=== PATIENT | female | born 1955 | race Caucasian/White ===

== ENCOUNTER 2016-07-13 20:51 | Emergency (ER) | payer OTHER ==
[~2016-07-13 20:51] MED LIST: AMOX1TAB61 PO; PROM12.56 PO
[2016-07-13 21:03] VITALS: BP 115/76
[2016-07-13] MEDS ORDERED: DEXAMETHASONE SOD PHOS 20 MG/5 ML VIAL. IM ONE (21:30)
[2016-07-13] MEDS ORDERED: PRED50TA PO (21:47)
[2016-07-13] MEDS ORDERED: HYDR25TA PO (21:47)
--- NOTE | 2016-07-13 21:47 | PHYS DOC ---
Past Medical History Past Medical History: Pneumonia Additional Past Medical Histor: CIRRHOSIS, CHRONIC BACK/ABD. PAIN Past Surgical History: Appendectomy, Tonsillectomy, Other Additional Past Surgical Histo: low back sx, uterian tumors Additional Information: 1 PPD Alcohol Use: None Drug Use: None Adult General Chief Complaint Chief Complaint: ITCHING HPI HPI Patient is a 61 year old female who presents with itching that began 3 days ago after switching laundry detergent. Patient states she has tried taking Benadryl with no relief. She states her PCP sent her to the ED to get some steroid injection. Review of Systems Review of Systems Constitutional: Denies fever or chills [] : Denies dysuria or hematuria [] Musculoskeletal: Denies back pain or joint pain [] Integument: rash Neurologic: Denies headache, focal weakness or sensory changes [] Endocrine: Denies polyuria or polydipsia [] Current Medications Current Medications Current Medications Medications (Trade) Dose Ordered Sig/Amanda Start Time Stop Time Status Last Admin Dose Admin Dexamethasone Sodium Phosphate (Decadron) 10 mg 1X ONCE 07/13/16 21:30 07/13/16 21:31 DC 07/13/16 21:30 10 MG Allergies Allergies Allergies Uncoded Allergies Type Severity Reaction Last Updated Verified nausea medication unknown name Allergy Unknown 04/21/16 Physical Exam Physical Exam Constitutional: Well developed, well nourished, no acute distress, non-toxic appearance. [] Skin: Patient is actively itching, she has small amount of erythema noted on her chin. Back: No tenderness, no CVA tenderness. [] Extremities: No tenderness, no cyanosis, no clubbing, ROM intact, no edema. [] Neurologic: Alert and oriented X 3, normal motor function, normal sensory function, no focal deficits noted. [] Psychologic: Affect normal, judgement normal, mood normal. [] Current Patient Data Vital Signs Vital Signs Date Time Temp Pulse Resp B/P Pulse Ox O2 Delivery O2 Flow Rate FiO2 07/13/16 21:03 98.3 84 20 100 Room Air 98.3 EKG EKG [] Radiology/Procedures Radiology/Procedures [] Course & Med Decision Making Course & Med Decision Making Pertinent Labs and Imaging studies reviewed. (See chart for details) Patient is in the ED for contact dermatitis due to switching soaps. She has tried Benadryl with no relief. We did give her Decadron in the ED discharged with prednisone for 4 days and Atarax. Instructed her to rewash all the clothes with the old detergent and stop using the new soap. Follow-up with her own PCP in one week. Srikanth Disclaimer [place] Disclaimer This electronic medical record was generated, in whole or in part, using a voice recognition dictation system. Departure Departure Impression: Primary Impression: Contact dermatitis Disposition: HOME, SELF-CARE Condition: STABLE Referrals: GILBERTO TRIPATHI MD (PCP) Follow-up with your own doctor in one week Patient Instructions: Contact Dermatitis Additional Instructions: You were seen for contact dermatitis due to new soap. Stop using the new soap and use the old soap. Take the prescribed medicines as ordered. Follow-up with your doctor in one week. Scripts Hydroxyzine Hcl 25 Mg Tablet1 Tab PO Q4-6HRS PRN RASH #30 TAB Prov:MUTMARCELINO PEREZ CAREER COUNSELOR 07/13/16 Prednisone 50 Mg Tablet1 Tab PO DAILY #4 TAB Prov:MARCELINO SPANGLER APRN 07/13/16 Problem Qualifiers Primary Impression: Contact dermatitis Contact dermatitis type: irritant Contact dermatitis trigger: detergents Qualified Code: L24.0 - Irritant contact dermatitis due to detergents MARCELINO SPANGLER APRN Jul 13, 2016 21:47
== END 2016-07-13 21:57 | disposition home or self-care (01) ==
LOC: ER 20:51
DX: L25.9 Unspecified contact dermatitis, unspecified cause (principal)
CPT/HCPCS: 96372; 99283; J1100

== ENCOUNTER 2016-08-06 13:15 | Emergency (ER) | payer OTHER ==
[~2016-08-06] VITALS: Ht 160 cm; Wt 77.1 kg
[~2016-08-06 13:15] MED LIST changes: +DOXY100T PO; +HYDR25TA PO; +PRED50TA PO
[2016-08-06 14:16] VITALS: BP 137/88
[2016-08-06] MEDS ORDERED: PROM25TA10 PO (14:26)
[2016-08-06] MEDS ORDERED: HYDR-971 PO (14:26)
[2016-08-06] MEDS ORDERED: CLIN300C86 PO (14:26)
--- NOTE | 2016-08-06 14:27 | PHYS DOC ---
Past Medical History Past Medical History: Hepatitis, Pneumonia Additional Past Medical Histor: CIRRHOSIS, CHRONIC BACK/ABD. PAIN, hep c Past Surgical History: Appendectomy, Hysterectomy, Tonsillectomy, Other Additional Past Surgical Histo: low back sx Alcohol Use: None Drug Use: None Adult General Chief Complaint Chief Complaint: DENTAL PROBLEM HPI HPI 61-year-old female presents with pain and swelling in her right lower jaw. She states it started in the last 2 days. She feels like it's a infection around her teeth. She denies any trismus. She states she's been able to eat and drink without difficulty. There is some pain with chewing. She denies fever chills or sweats. [] Review of Systems Review of Systems Constitutional: Denies fever or chills [] Eyes: Denies change in visual acuity, redness, or eye pain [] HENT: Denies nasal congestion or sore throat [] Respiratory: Denies cough or shortness of breath [] Cardiovascular: No additional information not addressed in HPI [] GI: Denies abdominal pain, nausea, vomiting, bloody stools or diarrhea [] : Denies dysuria or hematuria [] Musculoskeletal: Denies back pain or joint pain [] Integument: Denies rash or skin lesions [] Neurologic: Denies headache, focal weakness or sensory changes [] Endocrine: Denies polyuria or polydipsia [] Allergies Allergies Allergies Coded Allergies Type Severity Reaction Last Updated Verified No Known Drug Allergies 08/06/16 No Physical Exam Physical Exam Constitutional: Well developed, well nourished, no acute distress, non-toxic appearance. [] HENT: Normocephalic, atraumatic, bilateral external ears normal, oropharynx moist, no oral exudates, nose normal, right lower jaw swelling there is gingival swelling and erythema around her right lower first molar no abscess obvious. [] Eyes: PERRLA, EOMI, conjunctiva normal, no discharge. [] Neck: Normal range of motion, no tenderness, supple, no stridor. [] Cardiovascular:Heart rate regular rhythm, no murmur [] Lungs & Thorax: Bilateral breath sounds clear to auscultation [] Abdomen: Bowel sounds normal, soft, no tenderness, no masses, no pulsatile masses. [] Skin: Warm, dry, no erythema, no rash. [] Back: No tenderness, no CVA tenderness. [] Extremities: No tenderness, no cyanosis, no clubbing, ROM intact, no edema. [] Neurologic: Alert and oriented X 3, normal motor function, normal sensory function, no focal deficits noted. [] Psychologic: Affect normal, judgement normal, mood normal. [] Current Patient Data Vital Signs Vital Signs Date Time Temp Pulse Resp B/P Pulse Ox O2 Delivery O2 Flow Rate FiO2 08/06/16 14:16 98.1 78 15 99 Room Air 98.1 EKG EKG [] Radiology/Procedures Radiology/Procedures [] Course & Med Decision Making Course & Med Decision Making Pertinent Labs and Imaging studies reviewed. (See chart for details) [] Dragon Disclaimer Dragon Disclaimer This electronic medical record was generated, in whole or in part, using a voice recognition dictation system. Departure Departure Impression: Primary Impression: Pain, dental Disposition: 01 HOME, SELF-CARE Condition: STABLE Referrals: GILBERTO TRIPATHI MD (PCP) Patient Instructions: Dental Abscess Additional Instructions: Thank you for allowing us to participate in your care today. Followup with your primary care physician in 3 days if your symptoms do not improve. Return to the emergency department you have any new or concerning findings. This should be evaluated by the primary care physician and any necessary consulting services for continued management within a few days after discharge. Return to emergency room if you have any new or concerning symptoms including but not limited to fever, chills, nausea, vomiting, intractable pain, any new rashes, chest pain, shortness of air, uncontrolled bleeding, difficulty breathing, and/or vision loss. You may have been prescribed medication that can change in your level of thinking and ability to operate machinery. These medications include hydrocodone and Ativan. Also, Benadryl has been known to do this as well. Be sure to check with your pharmacist and ask if the medications you've prescribed can affect your level of consciousness. I recommend not operating heavy machinery or driving while on medication such as these. Scripts Promethazine Hcl 25 Mg Tablet1 Tab PO PRN Q6HRS NAUSEA #20 TAB Prov:CRISTIAN TORRES DO 08/06/16 Hydrocodone/Apap 5-325 ([place] 5-325 Tablet)1 Each Tablet1 Tab PO PRN Q6HRS PRN PAIN #20 TAB Prov:CRISTIAN TORRES DO 08/06/16 Clindamycin Hcl 300 Mg Capsule1 Cap PO TID Infection #30 CAP Prov:CRISTIAN TORRES DO 08/06/16 CRISTIAN TORRES DO Aug 06, 2016 14:27
== END 2016-08-06 14:40 | disposition home or self-care (01) ==
LOC: ER 13:15
DX: K08.89 Other specified disorders of teeth and supporting structures (principal); G89.29 Other chronic pain; Z86.19 Personal history of other infectious and parasitic diseases; Z87.01 Personal history of pneumonia (recurrent); Z90.710 Acquired absence of both cervix and uterus; Z90.89 Acquired absence of other organs; Z90.49 Acquired absence of other specified parts of digestive tract
CPT/HCPCS: 99283

== ENCOUNTER → 2016-09-29 | Outpatient (CLI) | payer OTHER ==
[~2016-09-29] MED LIST changes: +AMOX875T PO; +CLIN300C86 PO; +HYDR-971 PO; +PROC10TA57 PO; +PROM25TA10 PO
[2016-10-03 10:51] LABS: BARBITURATES NEG (NEG); BENZODIAZEPINES POS (NEG); CANNABINOIDS NEG (NEG); COCAINE NEG (NEG); ETHANOL, URINE NEG (NEG); METHADONE NEG (NEG); OPIATES POS (NEG); PHENCYCLIDINE NEG (NEG)
[2016-10-04 00:09] LABS: HEP B SURFACE ABDY Non Reactive (.)
== END | disposition home or self-care (01) ==
LOC: LAB 11:10
PROVIDERS: ATTEND Internal Medicine Gastroenterology
DX: B19.20 Unspecified viral hepatitis C without hepatic coma (principal)
CPT/HCPCS: 36415; 82105; 82172; 82247; 82977; 83883; 84460; 86706; 87340; 87341; 93010; G0481

== ENCOUNTER 2016-10-02 15:39 | Emergency (ER) | payer OTHER ==
[~2016-10-02] VITALS: Ht 165.1 cm; Wt 72.6 kg
[~2016-10-02 15:39] MED LIST changes: -AMOX875T PO; -PROC10TA57 PO
[2016-10-02 16:48] VITALS: BP 122/64
[2016-10-02] MEDS ORDERED: PROC10TA57 PO (16:48)
[2016-10-02] MEDS ORDERED: AMOX875T PO (16:48)
[2016-10-02] MEDS ORDERED: HYDR-971 PO (16:48)
--- NOTE | 2016-10-02 16:48 | PHYS DOC ---
Past Medical History Past Medical History: Hepatitis, Pneumonia Additional Past Medical Histor: CIRRHOSIS, CHRONIC BACK/ABD. PAIN, hep c Past Surgical History: Appendectomy, Hysterectomy, Tonsillectomy, Other Additional Past Surgical Histo: low back sx Alcohol Use: None Drug Use: None Adult General Chief Complaint Chief Complaint: DENTAL PROBLEM HPI HPI Patient is a 61 year old female with history of hepatitis who presents today with right lower gum dental pain that began 2 days ago. Patient states she would like promethazine and amoxicillin as well as pain medicine. Patient denies any fever. She states she has a dentist but will not longer see the dentist because "last time he butchered my mouth". She states last time the dentist gave her numbing medicines for dental work it took 24 hours with before the numbness went away. Review of Systems Review of Systems Constitutional: Denies fever or chills [] Eyes: Denies change in visual acuity, redness, or eye pain [] HENT: Dental pain Musculoskeletal: Denies back pain or joint pain [] Integument: Denies rash or skin lesions [] Neurologic: Denies headache, focal weakness or sensory changes [] Endocrine: Denies polyuria or polydipsia [] Allergies Allergies Allergies Coded Allergies Type Severity Reaction Last Updated Verified No Known Drug Allergies 08/06/16 No Physical Exam Physical Exam Constitutional: Well developed, well nourished, no acute distress, non-toxic appearance. [] HENT: Normocephalic, atraumatic, bilateral external ears normal, oropharynx moist, no oral exudates, nose normal. [] Right lower exterior gum with swelling consistent of dental abscess, there is no fluctuance to the area. Most of her teeth are decayed. Skin: Warm, dry, no erythema, no rash. [] Back: No tenderness, no CVA tenderness. [] Extremities: No tenderness, no cyanosis, no clubbing, ROM intact, no edema. [] Neurologic: Alert and oriented X 3, normal motor function, normal sensory function, no focal deficits noted. [] Psychologic: Affect normal, judgement normal, mood normal. [] EKG EKG [] Radiology/Procedures Radiology/Procedures [] Course & Med Decision Making Course & Med Decision Making Pertinent Labs and Imaging studies reviewed. (See chart for details) Patient is in the ED with a dental abscess. Discharged with amoxicillin, Compazine, and norco. She was insisting on having promethazine. Informed her I' ll prefer she takes Compazine for her nausea. Recommended following up with another dentist as soon as possible. Srikanth Disclaimer Srikanth Disclaimer This electronic medical record was generated, in whole or in part, using a voice recognition dictation system. Departure Departure Impression: Primary Impression: Dentalgia Additional Impression: Dental abscess Disposition: HOME, SELF-CARE Condition: STABLE Referrals: GILBERTO TRIPATHI MD (PCP) Please follow-up with your dentist as soon as possible Patient Instructions: Dental Abscess Additional Instructions: Please complete the prescribed antibiotics. Follow-up with your dentist as soon as possible. Scripts Hydrocodone/Apap 5-325 ([place] 5-325 Tablet)1 Each Tablet1-2 Tab PO Q4-6HRS #12 TAB MUST FILL AMOXICILLIN PRIOR TO NORCO. DO NOT DISPENSE IF PATIENT HAS FILLED ANY NARCOTICS IN THE LAST 2 WEEKS Prov:MARCELINO SPANGLER APRN 10/02/16 Prochlorperazine Maleate (Compazine)10 Mg [id number] Mg PO Q8HRS PRN NAUSEA #20 TAB Prov:MARCELINO SPANGLER APRN 10/02/16 Amoxicillin 875 Mg Tablet1 Tab PO BID #20 TAB Prov:MARCELINO SPANGLER APRN 10/02/16 Problem Qualifiers MARCELINO SPANGLER APRN Oct 02, 2016 16:48
== END 2016-10-02 16:55 | disposition home or self-care (01) ==
LOC: ER 15:39
DX: K04.7 Periapical abscess without sinus (principal); K02.9 Dental caries, unspecified; G89.29 Other chronic pain; Z87.01 Personal history of pneumonia (recurrent); Z86.19 Personal history of other infectious and parasitic diseases
CPT/HCPCS: 99283

== ENCOUNTER 2016-12-30 05:09 | Emergency (ER) | payer OTHER ==
[~2016-12-30] VITALS: Ht 165.1 cm; Wt 72.6 kg
[~2016-12-30 05:09] MED LIST changes: +AMOX875T PO; +CLIN300C8 PO; -CLIN300C86 PO; +PROC10TA57 PO
[2016-12-30] MEDS ORDERED: AMOX875T PO (05:22)
--- NOTE | 2016-12-30 05:22 | PHYS DOC ---
Past Medical History Past Medical History: Hepatitis, Pneumonia Additional Past Medical Histor: CIRRHOSIS, CHRONIC BACK/ABD. PAIN, hep c Past Surgical History: Appendectomy, Hysterectomy, Tonsillectomy, Other Additional Past Surgical Histo: low back sx Alcohol Use: None Drug Use: None Adult General Chief Complaint Chief Complaint: Congestion HPI HPI Patient is a 61 year old female presenting to the emergency department for evaluation of a sharp pain sinus congestion and dental pain. She is here with her sister who called the ambulance for right leg numbness and she said since she is here for her sister she was will get seen for these complaints has been going on for the past 5-6 days. No fevers chills nausea vomiting productive cough facial swelling. Review of Systems Review of Systems Constitutional: Denies fever or chills [] HENT: + nasal congestion, sore throat [] Respiratory: Denies cough or shortness of breath [] GI: Denies abdominal pain, nausea, vomiting, bloody stools or diarrhea [] Integument: Denies rash or skin lesions [] Neurologic: Denies headache, focal weakness or sensory changes [] Allergies Allergies Allergies Coded Allergies Type Severity Reaction Last Updated Verified No Known Drug Allergies 08/06/16 No Physical Exam Physical Exam Constitutional: Well developed, well nourished, no acute distress, non-toxic appearance. [] HENT: Normocephalic, atraumatic, bilateral external ears normal, oropharynx moist, no oral exudates, nasal congestion noted. BL maxillary facial ttp. Poor dentition throughout with no obvious periapical abscess. She has multiple teeth 30 pulled and her right posterior molar appears quite decayed in addition to her left posterior molar well. Lungs & Thorax: Bilateral breath sounds clear to auscultation [] Skin: Warm, dry, no erythema, no rash. [] EKG EKG [] Radiology/Procedures Radiology/Procedures [] Course & Med Decision Making Course & Med Decision Making Patient with complaints of dental pain and sinus pain. She is insistent on getting antibiotics so we'll treat with amoxicillin which should cover both. Patient also told that ibuprofen Benadryl and Nasonex would help her symptoms more than the antibiotics would. Dragon Disclaimer Dragon Disclaimer This electronic medical record was generated, in whole or in part, using a voice recognition dictation system. Departure Departure Impression: Primary Impression: Acute sinusitis Additional Impression: Pain, dental Disposition: HOME, SELF-CARE Condition: GOOD Referrals: GILBERTO TRIPATHI MD (PCP) Patient Instructions: Dental Pain Additional Instructions: TAKE 400MG OF IBUPROFEN EVERY 6 HOURS. USE OTC BENADRYL AND NASONEX FOR YOUR SYMPTOMS WELL. FOLLOW WITH YOUR PCP TO ENSURE IMPROVEMENT. THANK YOU! Scripts Amoxicillin (AMOXICILLIN) 875 Mg Tablet 1 TAB PO BID, #14 TAB Prov: AUDIE DICKERSON DO 12/30/16 Problem Qualifiers Primary Impression: Acute sinusitis Sinusitis location: maxillary Recurrence: not specified as recurrent Qualified Codes: J01.00 - Acute maxillary sinusitis, unspecified AUDIE DICKERSON DO Dec 30, 2016 05:22
[2016-12-30 05:45] VITALS: BP 114/77
== END 2016-12-30 05:50 | disposition home or self-care (01) ==
LOC: ER 05:09
DX: J01.00 Acute maxillary sinusitis, unspecified (principal); K08.89 Other specified disorders of teeth and supporting structures; G89.29 Other chronic pain; Z87.01 Personal history of pneumonia (recurrent); Z86.19 Personal history of other infectious and parasitic diseases; Z90.710 Acquired absence of both cervix and uterus; Z90.49 Acquired absence of other specified parts of digestive tract
CPT/HCPCS: 99283

== ENCOUNTER 2017-02-15 20:33 | Emergency (ER) | payer OTHER ==
[~2017-02-15] VITALS: Ht 165.1 cm; Wt 72.6 kg
[2017-02-15 20:50] LABS: BILIRUBIN,URINE NEGATIVE (NEG); GLUCOSE,URINE NEGATIVE (NEG); NITRITE,URINE NEGATIVE (NEG); PROTEIN,URINE NEGATIVE (NEG-TRACE)
[2017-02-15 20:56] LABS: BACTERIA,URINE FEW /HPF (0-FEW); RBC,URINE OCC /HPF (0-2); SQUAMOUS EPITHELIAL CELL,UR MANY /LPF
[2017-02-15 21:15] VITALS: BP 119/70
[2017-02-15] MEDS ORDERED: HYDR-971 PO (21:16)
[2017-02-15] MEDS ORDERED: AMOX1TAB61 PO (21:16)
--- NOTE | 2017-02-15 21:16 | PHYS DOC ---
Past Medical History Past Medical History: Hepatitis, Pneumonia Additional Past Medical Histor: CIRRHOSIS, CHRONIC BACK/ABD. PAIN, hep c Past Surgical History: Appendectomy, Hysterectomy, Tonsillectomy, Other Additional Past Surgical Histo: low back sx Alcohol Use: None Drug Use: None Adult General Chief Complaint Chief Complaint: FLANK PAIN HPI HPI Patient is a 62 year old female who presents with dysuria & dental pain. She has 3 day history of suprapubic pain with dysuria. She told triage desk she had flank pain but denies to me. She denies fevers/chills, nausea, vomiting, diarrhea, hematuria, vaginal bleeding/discharge. She denies history of kidney infection or kidney stone. Also has right lower dental pain. Review of Systems Review of Systems Constitutional: Denies fever or chills HENT: Reports dental pain Respiratory: Denies cough or shortness of breath Cardiovascular: Denies chest pain or edema GI: Denies nausea, vomiting, or diarrhea : Reports dysuria Musculoskeletal: Denies back pain Integument: Denies rash Neurologic: Denies headache Allergies Allergies Allergies Coded Allergies Type Severity Reaction Last Updated Verified No Known Drug Allergies 08/06/16 No Physical Exam Physical Exam Constitutional: Well developed, well nourished, no acute distress, non-toxic appearance. HENT: Normocephalic, atraumatic, bilateral external ears normal, oropharynx moist, nose normal. right mandibular premolars with severe caries, erosion, & gingival erythema. no abscess, no trismus or jaw swelling. Eyes: conjunctiva normal, no discharge. Cardiovascular: RRR, no murmurs, no edema. Lungs & Thorax: LCTAB, no wheezing, no respiratory distress. Abdomen: soft, nontender, nondistended. no rebound/guarding, no masses/ pulsatile masses. Skin: Warm, dry, no erythema, no rash. Back: No CVA tenderness. Extremities: No tenderness, no edema. Neurologic: Alert and oriented X 3 Current Patient Data Vital Signs Vital Signs Date Time Temp Pulse Resp B/P (MAP) Pulse Ox O2 Delivery O2 Flow Rate FiO2 02/15/17 21:15 70 16 119/70 (86) 97 Room Air 02/15/17 20:45 98.0 98.0 Lab Values Laboratory Tests Test 02/15/17 20:42 Urine Collection Type Void Urine Color Yellow Urine Clarity Clear Urine pH 6.0 Urine Specific [place] 1.025 Urine Protein Negative mg/dL (NEG-TRACE) Urine Glucose (UA) Negative mg/dL (NEG) Urine Ketones (Stick) Negative mg/dL (NEG) Urine Blood Negative (NEG) Urine Nitrite Negative (NEG) Urine Bilirubin Negative (NEG) Urine Urobilinogen Dipstick 1.0 mg/dL (0.2 mg/dL) Urine Leukocyte Esterase Small (NEG) Urine RBC Occ /HPF (0-2) Urine WBC 5-10 /HPF (0-4) Urine Squamous Epithelial Cells Many /LPF Urine Bacteria Few /HPF (0-FEW) Urine Mucus Marked /LPF EKG EKG [] Radiology/Procedures Radiology/Procedures [] Course & Med Decision Making Course & Med Decision Making Pertinent Labs and Imaging studies reviewed. (See chart for details) Patient presents with dysuria & dental pain. Contaminated UA, possible UTI. Will give augmentin to cover for dental infection & UTI, norco for pain. NO drinking alcohol or driving while taking norco. Follow up with PCP & dentist in 2-3 days. Come back for high fever, severe pain, uncontrolled vomiting, difficulty breathing or swallowing, any otherwise worsening condition. Discharged home in stable condition. [] Dragon Disclaimer Dragon Disclaimer This electronic medical record was generated, in whole or in part, using a voice recognition dictation system. Departure Departure Impression: Primary Impression: Urinary tract infection Additional Impression: Pain, dental Disposition: 01 HOME, SELF-CARE Condition: STABLE Referrals: GILBERTO TRIPATHI MD (PCP) Patient Instructions: Dental Pain, [id number], Urinary Tract Infection, Easy- to-Read Additional Instructions: You were seen in the emergency department today for urinary tract infection & dental pain. please take the prescribed antibiotic. Use ibuprofen for pain & norco for severe breakthrough pain. No drinking alcohol or driving while taking this medication. Follow up with primary care & your dentist in 2-3 days. Come back for high fever, severe pain, uncontrolled vomiting, any otherwise worsening condition. Scripts Hydrocodone/Apap 5-325 (NORCO 5-325 TABLET) 1 Each Tablet 1 TAB PO PRN Q6HRS Y for PAIN, #10 TAB 0 Refills Prov: KYE ELLISON MD 02/15/17 Amoxicillin/Potassium Clav (AUGMENTIN 875-125 TABLET) 1 Each Tablet 1 TAB PO BID, #14 TAB Prov: KYE ELLISON MD 02/15/17 Problem Qualifiers Primary Impression: Urinary tract infection Urinary tract infection type: site unspecified Hematuria presence: without hematuria Qualified Codes: N39.0 - Urinary tract infection, site not specified KYE ELLISON MD Feb 15, 2017 21:16
== END 2017-02-15 21:20 | disposition home or self-care (01) ==
LOC: ER 20:33
DX: N39.0 Urinary tract infection, site not specified (principal); K08.89 Other specified disorders of teeth and supporting structures
CPT/HCPCS: 81001; 87086; 99284

== ENCOUNTER 2017-02-24 19:35 | Emergency (ER) | payer OTHER ==
[~2017-02-24] VITALS: Ht 165.1 cm; Wt 72.6 kg
[2017-02-24 19:51] VITALS: BP 139/77
--- NOTE | 2017-02-24 20:26 | PHYS DOC ---
Past Medical History Past Medical History: Hepatitis, Pneumonia Additional Past Medical Histor: CIRRHOSIS, CHRONIC BACK/ABD. PAIN, hep c Past Surgical History: Appendectomy, Hysterectomy, Tonsillectomy, Other Additional Past Surgical Histo: low back sx Alcohol Use: None Drug Use: None Adult General Chief Complaint Chief Complaint: FLANK PAIN HPI HPI Patient is a 62 year old female who presents ambulatory to the ED. When I went to see her, the patient was dressed and pacing in the navarrete outside of her room. Patient stated "I'm in a hurry, can you just give me some Cipro and let me get out of here". Patient told me that her sister is waiting in the car and she is in a hurry, she thinks that she may just come back in the morning. Patient tells me that last time she was here, February 15, she was treated with Augmentin for a UTI. Her symptoms got better but now they are worse again. She states that she has pain and "both kidneys" and also in her lower abdomen. She has burning when she urinates. She's had nausea but no vomiting. She's had fever and chills off and on. Patient has no history of UTI prior to last month diagnosis. She states she took the antibiotics as prescribed last time. I did review the report from her recent visit. Her UA was contaminated and the culture did not grow out positive for UTI. PCP Dr. Tripathi, however patient states that she was unhappy with her and has an appointment with a new doctor on March 21. Patient states she has a history of hepatitis C. She has had an appendectomy, hysterectomy, and back surgery. Her only prescription medication is Lasix and she doesn't take it every day. Review of Systems Review of Systems Constitutional: As in history of present illness HENT: Denies nasal congestion or sore throat [] Respiratory: Denies cough or shortness of breath [] GI: As in history of present illness : As in history of present illness Musculoskeletal: Denies back pain or joint pain [] Integument: Denies rash or skin lesions [] Allergies Allergies Allergies Coded Allergies Type Severity Reaction Last Updated Verified No Known Drug Allergies 08/06/16 No Physical Exam Physical Exam Constitutional: Well developed, well nourished, no acute distress, non-toxic appearance. Alert, mentating normally, warm and dry. HENT: Normocephalic, atraumatic, bilateral external ears normal, nose normal. [ ] Eyes: conjunctiva normal, no discharge. [] Neck: Normal range of motion, no stridor. [] Cardiovascular:Heart rate regular rhythm, no murmur [] Lungs & Thorax: Bilateral breath sounds clear to auscultation [] Abdomen: Bowel sounds normal, soft, nondistended, no masses, no pulsatile masses. Mild tenderness to palpation across bilateral lower quadrants, nonlocalized. No rebound or guarding. The tenderness is more lateral than suprapubic. Skin: Warm, dry, no erythema, no rash. [] Back: Patient indicates the area of pain across her low back at approximately L3 to 5 level. She does not have CVA tenderness. No skin color changes or skin abnormalities in the area of tenderness. Extremities: No tenderness, no cyanosis, no clubbing, ROM intact, no edema. [] Neurologic: Alert and oriented X 3, normal motor function, normal sensory function, no focal deficits noted. [] Current Patient Data Vital Signs Vital Signs Date Time Temp Pulse Resp B/P (MAP) Pulse Ox O2 Delivery O2 Flow Rate FiO2 02/24/17 19:51 98.1 72 20 98 Room Air 98.1 EKG EKG [] Radiology/Procedures Radiology/Procedures [] Course & Med Decision Making Course & Med Decision Making Pertinent Labs and Imaging studies reviewed. (See chart for details) 62-year-old female who presents after recent diagnosis of UTI stating that she continues to have "kidney pain", burning with urination, and lower abdominal pain bilaterally. The patient has had a hysterectomy and appendectomy. I reviewed the chart and advised the patient that it does not appear that she in fact had a UTI when she was here recently. After history and exam, I advised the patient that we should get some labs including urinalysis and a CT scan to evaluate her complaints. Patient stated that she does not have time for that today, her sister is waiting for her. She would like to have a few [place] and come back tomorrow. I declined to give her any opiates, explained to her that we really need to evaluate her complaints rather than just cover them up with opiates. She understood that and stated that she will come back tomorrow morning for further testing and evaluation. [] Dragon Disclaimer Dragon Disclaimer This electronic medical record was generated, in whole or in part, using a voice recognition dictation system. Departure Departure Impression: Primary Impression: Abdominal discomfort, bilateral lower quadrant Additional Impression: Dysuria Disposition: 01 HOME, SELF-CARE Condition: STABLE Referrals: GILBERTO TRIPATHI MD (PCP) Additional Instructions: As we discussed, I recommend more testing including blood tests and CT scan. Please return for this when you are able to. Problem Qualifiers MATILDE MUNROE MD Feb 24, 2017 20:25
== END 2017-02-24 20:36 | disposition home or self-care (01) ==
LOC: ER 19:35
DX: R10.31 Right lower quadrant pain (principal); R10.32 Left lower quadrant pain; R30.0 Dysuria; Z90.710 Acquired absence of both cervix and uterus; Z90.49 Acquired absence of other specified parts of digestive tract; Z86.19 Personal history of other infectious and parasitic diseases
CPT/HCPCS: 99281

== ENCOUNTER 2017-03-24 15:25 | Inpatient (IN) | payer OTHER ==
[~2017-03-24] VITALS: Ht 165.1 cm; Wt 79.6 kg
[2017-03-24 16:04] LABS: BASO % 1 % (0-3); EOS % 6 % (0-3); HEMATOCRIT 44.9 % (36.0-47.0); HEMOGLOBIN 14.8 g/dL (12.0-15.5); LYMPH % 38 % (24-48); MEAN CORPUSCULAR HEMOGLOBIN 31 pg (25-35); MEAN CORPUSCULAR HGB CONC 33 g/dL (31-37); MEAN CORPUSCULAR VOLUME 93 fL (79-100); MONO % 7 % (0-9); NEUT % 49 % (31-73); PLATELET COUNT 110 x10^3/uL (140-400); RED BLOOD COUNT 4.84 x10^6/uL (3.50-5.40); WHITE BLOOD COUNT 5.3 x10^3/uL (4.0-11.0)
[2017-03-24 16:15] LABS: CALCIUM 8.2 mg/dL (8.5-10.1); CREATININE 1.4 mg/dL (0.6-1.0); GFR 38.1; POTASSIUM 3.8 mmol/L (3.5-5.1)
[2017-03-24 16:21] LABS: ALBUMIN 2.8 g/dL (3.4-5.0); DIRECT BILIRUBIN 0.1 mg/dL (0.0-0.2); TOTAL BILIRUBIN 0.3 mg/dL (0.2-1.0); TOTAL PROTEIN 7.2 g/dL (6.4-8.2)
--- NOTE | 2017-03-24 17:23 | PHYS DOC ---
Past Medical History Past Medical History: Hepatitis, Pneumonia Additional Past Medical Histor: CIRRHOSIS, CHRONIC BACK/ABD. PAIN, hep c Past Surgical History: Appendectomy, Hysterectomy, Tonsillectomy, Other Additional Past Surgical Histo: low back sx Alcohol Use: None Drug Use: None Adult General Chief Complaint Chief Complaint: CHEST PAIN HPI HPI 62-year-old female presenting the emergency department today with chest pain. She denies a history of hypertension or diabetes. She denies hyperlipidemia. She does smoke. She has been having chest pain intermittently for about a week. It is a sharp shooting pain that is nonradiating intermittent and without alleviating factors. She denies unilateral leg swelling hemoptysis or family or personal history of blood clotting disorder. The pain is associated with mild shortness of breath without diaphoresis nausea or vomiting. She does have a history of hep C for which she is currently seeking treatment. Review of systems is negative for abdominal pain nausea vomiting fevers or chills. All other review of systems is negative unless otherwise noted in history of present illness. ED course: 62-year-old female presenting to the emergency department today with chest pain. Vital signs afebrile with a normal heart rate. EKG obtained and reviewed by myself shows sinus rhythm with a regular rate. ST segments are congruent. Not consistent with ACS. Otherwise chest x-ray was obtained and reviewed by myself as well. Chest x-ray reviewed by myself shows no obvious infiltrate or pneumothorax present. No obvious acute cardiopulmonary process present. Blood work obtained which shows negative troponin. Otherwise unremarkable workup. Heart score of 4 calculated. Patient will be admitted for serial troponins and cardiology consultation. Review of Systems Review of Systems SEE ABOVE. Allergies Allergies Allergies Coded Allergies Type Severity Reaction Last Updated Verified No Known Drug Allergies 08/06/16 No Physical Exam Physical Exam SEE ABOVE Constitutional: Well developed, well nourished, no acute distress, non-toxic appearance. [] HENT: Normocephalic, atraumatic, bilateral external ears normal, oropharynx moist, no oral exudates, nose normal. [] Eyes: PERRLA, EOMI, conjunctiva normal, no discharge. [] Neck: Normal range of motion, no tenderness, supple, no stridor. [] Cardiovascular:Heart rate regular rhythm, no murmur [] Lungs & Thorax: Bilateral breath sounds clear to auscultation [] Abdomen: Bowel sounds normal, soft, no tenderness, no masses, no pulsatile masses. [] Skin: Warm, dry, no erythema, no rash. [] Back: No tenderness, no CVA tenderness. [] Extremities: No tenderness, no cyanosis, no clubbing, ROM intact, no edema. [] Neurologic: Alert and oriented X 3, normal motor function, normal sensory function, no focal deficits noted. [] Psychologic: Affect normal, judgement normal, mood normal. [] Current Patient Data Vital Signs Vital Signs Date Time Temp Pulse Resp B/P (MAP) Pulse Ox O2 Delivery O2 Flow Rate FiO2 03/24/17 16:58 67 108/68 (81) 96 Room Air 03/24/17 15:45 98.2 20 98.2 Lab Values Laboratory Tests Test 03/24/17 15:53 White Blood Count 5.3 x10^3/uL (4.0-11.0) Red Blood Count 4.84 x10^6/uL (3.50-5.40) Hemoglobin 14.8 g/dL (12.0-15.5) Hematocrit 44.9 % (36.0-47.0) Mean Corpuscular Volume 93 fL (79-100) Mean Corpuscular Hemoglobin 31 pg (25-35) Mean Corpuscular Hemoglobin Concent 33 g/dL (31-37) Red Cell Distribution Width 14.0 % (11.5-14.5) Platelet Count 110 x10^3/uL (140-400) L Neutrophils (%) (Auto) 49 % (31-73) Lymphocytes (%) (Auto) 38 % (24-48) Monocytes (%) (Auto) 7 % (0-9) Eosinophils (%) (Auto) 6 % (0-3) H Basophils (%) (Auto) 1 % (0-3) Neutrophils # (Auto) 2.6 x10^3uL (1.8-7.7) Lymphocytes # (Auto) 2.0 x10^3/uL (1.0-4.8) Monocytes # (Auto) 0.4 x10^3/uL (0.0-1.1) Eosinophils # (Auto) 0.3 x10^3/uL (0.0-0.7) Basophils # (Auto) 0.0 x10^3/uL (0.0-0.2) Sodium Level 142 mmol/L (136-145) Potassium Level 3.8 mmol/L (3.5-5.1) Chloride Level 108 mmol/L (98-107) H Carbon Dioxide Level 27 mmol/L (21-32) Anion Gap 7 (6-14) Blood Urea Nitrogen 14 mg/dL (7-20) Creatinine 1.4 mg/dL (0.6-1.0) H Estimated GFR (Cockcroft-Gault) 38.1 Glucose Level 111 mg/dL (70-99) H Calcium Level 8.2 mg/dL (8.5-10.1) L Total Bilirubin 0.3 mg/dL (0.2-1.0) Direct Bilirubin 0.1 mg/dL (0.0-0.2) Aspartate Amino Transferase (AST) 69 U/L (15-37) H Alanine Aminotransferase (ALT) 90 U/L (14-59) H Alkaline Phosphatase 183 U/L (46-116) H Troponin I Quantitative < 0.017 ng/mL (0.000-0.055) EI-Wut-B-Type Natriuretic Peptide 112 pg/mL (0-124) Total Protein 7.2 g/dL (6.4-8.2) Albumin 2.8 g/dL (3.4-5.0) L Lipase 89 U/L (73-393) Laboratory Tests 03/24/17 15:53 Laboratory Tests 03/24/17 15:53 EKG EKG [] Radiology/Procedures Radiology/Procedures [] Course & Med Decision Making Course & Med Decision Making Pertinent Labs and Imaging studies reviewed. (See chart for details) [] Dragon Disclaimer Dragon Disclaimer This electronic medical record was generated, in whole or in part, using a voice recognition dictation system. Departure Departure Impression: Primary Impression: Chest pain Disposition: ADMITTED INPATIENT Admitting Physician: [facility] Condition: STABLE Referrals: LUCA HOPKINS MD (PCP) MAYELIN MOE MD Mar 24, 2017 17:23
[2017-03-24] MEDS ORDERED: ACETAMINOPHEN 325 MG TABLET. PO PRN (18:30)
[2017-03-24] MEDS ORDERED: hydrALAZINE 20 MG/ML VIAL. IVP PRN (18:30)
[2017-03-24] MEDS ORDERED: DOCUSATE SODIUM 100 MG CAPSULE. PO PRN (18:30)
--- NOTE | 2017-03-24 18:40 | PDOC1 ---
History and Physical Date of Admission Date of Admission 03/24/17 Identification/Chief Complaint Chief Complaint chest pain, abd pain, back pain Problems: Source Source: Chart review, Patient History of Present Illness History of Present Illness HPI HPI 62-year-old female presenting the emergency department today with chest pain, abd pain and back pain chronically. Pt very anxious, kept talking about she has hep C , never treated, and "fluid in the abd" cause severe pain, which makes her htn AND CHEST PAIN. sHE Said chest pain intermittent for a few weeks, happens any time. 9/10, with dipharesis, sob, nausea, denies vomiting, cough, fever, chills. Pt looks very anxious to me, but NO DYSPNEA in ER. however, when i asked her do you feel sob NOW? she said yes and said pain is 9/10, no tenderness. She said she takes oxycodone 15mg prn, but cannot find a pain doc, waiting to see a new PCP in 4 weeks. has chronic RUQ pain for which pt kept saying has hep c WITH " thousands unit LFT" and doc told her " had fluid which cause abd pain" chronic back pain with sx, last time MRI about 1 year ago no acute change. Troponin neg, EKG not in computer Past Medical History Past Medical History htn, hep c Hepatitis, Pneumonia Additional Past Medical Histor: CIRRHOSIS, CHRONIC BACK/ABD. PAIN, hep c Past Surgical History Past Surgical History back sx Appendectomy, Hysterectomy, Tonsillectomy, Other Additional Past Surgical Histo: low back sx Family History Family History: Hypertension Social History Smoke: 1 pack per day ALCOHOL: social Drugs: None Current Problem List Problem List Problems Medical Problems: (1) Chest pain Status: Acute Current Medications Current Medications Current Medications Medications (Trade) Dose Ordered Sig/Amanda Start Time Stop Time Status Last Admin Dose Admin Acetaminophen (Tylenol) 650 mg PRN Q6HRS PRN 03/24/17 18:30 UNV Docusate Sodium (Colace) 100 mg PRN DAILY PRN 03/24/17 18:30 UNV Hydralazine HCl (Apresoline) 10 mg PRN Q4HRS PRN 03/24/17 18:30 UNV Morphine Sulfate 2 mg PRN Q2HR PRN 03/24/17 18:30 UNV Ondansetron HCl (Zofran) 4 mg PRN Q6HRS PRN 03/24/17 18:30 UNV Tramadol HCl (Ultram) 50 mg PRN Q6HRS PRN 03/24/17 18:30 UNV Allergies Allergies Allergies Coded Allergies Type Severity Reaction Last Updated Verified No Known Drug Allergies 08/06/16 No ROS Review of System CONSTITUTIONAL: No fever or chills EYES: No recent changes SKIN: No rash or itching CARDIOVASCULAR: No chest pain, syncope, palpitations, or edema RESPIRATORY: No SOB or cough GASTROINTESTINAL: No nausea, vomiting or abdominal pain NEUROLOGICAL: No headaches or weakness ENDOCRINE: No cold or heat intolerance GENITOURINARY: No urgency or frequency of urination MUSCULOSKELETAL: No back pain or joint pain LYMPHATICS: No enlarged lymph nodes PSYCHIATRIC: No anxiety or depression Physical Exam Physical Exam GEN.: very anxious HEENT: Head is normocephalic, atraumatic NECK: Supple. LUNGS: Clear to auscultation. HEART: RRR, S1, S2 present. Peripheral pulses intact ABDOMEN: Soft, Positive bowel sounds. epigastric and RUQ mild tenderness. no guarding or rebound. EXTREMITIES: Without any cyanosis. NEUROLOGIC: Normal speech, normal tone PSYCHIATRIC: Normal affect, normal mood. SKIN: No ulcerations Vitals Vitals Vital Signs Date Time Temp Pulse Resp B/P (MAP) Pulse Ox O2 Delivery O2 Flow Rate FiO2 03/24/17 16:58 67 108/68 (81) 96 Room Air 03/24/17 15:45 98.2 20 98.2 Labs Labs Laboratory Tests Test 03/24/17 15:53 White Blood Count 5.3 x10^3/uL (4.0-11.0) Red Blood Count 4.84 x10^6/uL (3.50-5.40) Hemoglobin 14.8 g/dL (12.0-15.5) Hematocrit 44.9 % (36.0-47.0) Mean Corpuscular Volume 93 fL (79-100) Mean Corpuscular Hemoglobin 31 pg (25-35) Mean Corpuscular Hemoglobin Concent 33 g/dL (31-37) Red Cell Distribution Width 14.0 % (11.5-14.5) Platelet Count 110 x10^3/uL (140-400) Neutrophils (%) (Auto) 49 % (31-73) Lymphocytes (%) (Auto) 38 % (24-48) Monocytes (%) (Auto) 7 % (0-9) Eosinophils (%) (Auto) 6 % (0-3) Basophils (%) (Auto) 1 % (0-3) Neutrophils # (Auto) 2.6 x10^3uL (1.8-7.7) Lymphocytes # (Auto) 2.0 x10^3/uL (1.0-4.8) Monocytes # (Auto) 0.4 x10^3/uL (0.0-1.1) Eosinophils # (Auto) 0.3 x10^3/uL (0.0-0.7) Basophils # (Auto) 0.0 x10^3/uL (0.0-0.2) Sodium Level 142 mmol/L (136-145) Potassium Level 3.8 mmol/L (3.5-5.1) Chloride Level 108 mmol/L (98-107) Carbon Dioxide Level 27 mmol/L (21-32) Anion Gap 7 (6-14) Blood Urea Nitrogen 14 mg/dL (7-20) Creatinine 1.4 mg/dL (0.6-1.0) Estimated GFR (Cockcroft-Gault) 38.1 Glucose Level 111 mg/dL (70-99) Calcium Level 8.2 mg/dL (8.5-10.1) Total Bilirubin 0.3 mg/dL (0.2-1.0) Direct Bilirubin 0.1 mg/dL (0.0-0.2) Aspartate Amino Transf (AST/SGOT) 69 U/L (15-37) Alanine Aminotransferase (ALT/SGPT) 90 U/L (14-59) Alkaline Phosphatase 183 U/L (46-116) Troponin I Quantitative < 0.017 ng/mL (0.000-0.055) OH-Eem-O-Type Natriuretic Peptide 112 pg/mL (0-124) Total Protein 7.2 g/dL (6.4-8.2) Albumin 2.8 g/dL (3.4-5.0) Lipase 89 U/L (73-393) Laboratory Tests Test 03/24/17 15:53 White Blood Count 5.3 x10^3/uL (4.0-11.0) Red Blood Count 4.84 x10^6/uL (3.50-5.40) Hemoglobin 14.8 g/dL (12.0-15.5) Hematocrit 44.9 % (36.0-47.0) Mean Corpuscular Volume 93 fL (79-100) Mean Corpuscular Hemoglobin 31 pg (25-35) Mean Corpuscular Hemoglobin Concent 33 g/dL (31-37) Red Cell Distribution Width 14.0 % (11.5-14.5) Platelet Count 110 x10^3/uL (140-400) Neutrophils (%) (Auto) 49 % (31-73) Lymphocytes (%) (Auto) 38 % (24-48) Monocytes (%) (Auto) 7 % (0-9) Eosinophils (%) (Auto) 6 % (0-3) Basophils (%) (Auto) 1 % (0-3) Neutrophils # (Auto) 2.6 x10^3uL (1.8-7.7) Lymphocytes # (Auto) 2.0 x10^3/uL (1.0-4.8) Monocytes # (Auto) 0.4 x10^3/uL (0.0-1.1) Eosinophils # (Auto) 0.3 x10^3/uL (0.0-0.7) Basophils # (Auto) 0.0 x10^3/uL (0.0-0.2) Sodium Level 142 mmol/L (136-145) Potassium Level 3.8 mmol/L (3.5-5.1) Chloride Level 108 mmol/L (98-107) Carbon Dioxide Level 27 mmol/L (21-32) Anion Gap 7 (6-14) Blood Urea Nitrogen 14 mg/dL (7-20) Creatinine 1.4 mg/dL (0.6-1.0) Estimated GFR (Cockcroft-Gault) 38.1 Glucose Level 111 mg/dL (70-99) Calcium Level 8.2 mg/dL (8.5-10.1) Total Bilirubin 0.3 mg/dL (0.2-1.0) Direct Bilirubin 0.1 mg/dL (0.0-0.2) Aspartate Amino Transf (AST/SGOT) 69 U/L (15-37) Alanine Aminotransferase (ALT/SGPT) 90 U/L (14-59) Alkaline Phosphatase 183 U/L (46-116) Troponin I Quantitative < 0.017 ng/mL (0.000-0.055) GW-Prg-A-Type Natriuretic Peptide 112 pg/mL (0-124) Total Protein 7.2 g/dL (6.4-8.2) Albumin 2.8 g/dL (3.4-5.0) Lipase 89 U/L (73-393) VTE Prophylaxis Ordered VTE Prophylaxis Devices: Yes VTE Pharmacological Prophylaxi: Yes Assessment/Plan Assessment/Plan chest pain, need to rule out unstable angina, vs anxiety htn h/o hep C wo treatment severe anxiety chronic abd pain chronic back pain plan: card, gi consult echo US abd cycle CE CHECK LIPID PANEL TSH ekg OXYCODone for now check heptitis panel dvt ppx TSERING BENOIT MD Mar 24, 2017 18:39
[2017-03-24] MEDS: traMADol 50 MG TABLET PO PRN (19:02)
[2017-03-24] MEDS ORDERED: ASPIRIN CHEWABLE 81 MG TABLET. PO ONE (19:15)
[2017-03-24 19:30] VITALS: BP 140/77
--- NOTE | 2017-03-24 19:44 | EKG ---
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
[2017-03-24] MEDS ORDERED: INFLUENZA VAX SCREEN BY RX. MC ONE (19:45)
[2017-03-24] MEDS ORDERED: PNEUMOCOCCAL VAX SCREEN BY RX. MC ONE (19:45)
[2017-03-24] MEDS: oxyCODONE IR 5 MG TABLET PO PRN (20:15)
[2017-03-24] MEDS: ENOXAPARIN 40 MG/0.4 ML SYRINGE. SQ SCH (20:16)
[2017-03-24] MEDS ORDERED: PNEUMOC CONJ VACC 23-VALENT 0.5 ML VIAL. VAX IM ONE (21:00)
[2017-03-24] MEDS ORDERED: FLU VACC QS2017-18 (36MOS+)/PF 0.5 ML SYRINGE. VAX IM ONE (21:00)
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
[2017-03-24 23:29] LABS: CKMB MASS 0.7 ng/mL (0.0-3.6); CREATINE KINASE 40 U/L (26-192)
[2017-03-24 23:45] VITALS: BP 121/63
[2017-03-25] MEDS: traMADol 50 MG TABLET PO PRN (00:24)
[2017-03-25 03:30] VITALS: BP 96/47
[2017-03-25] MEDS: oxyCODONE IR 5 MG TABLET PO PRN ×4 (04:06→23:42)
[2017-03-25] MEDS: ONDANSETRON PF 4 MG/2 ML VIAL. IV PRN ×3 (05:19→23:42)
[2017-03-25 06:06] LABS: BASO % 1 % (0-3); EOS % 5 % (0-3); HEMATOCRIT 43.8 % (36.0-47.0); HEMOGLOBIN 14.6 g/dL (12.0-15.5); LYMPH # 2.2 x10^3/uL (1.0-4.8); LYMPH % 41 % (24-48); MEAN CORPUSCULAR HEMOGLOBIN 31 pg (25-35); MEAN CORPUSCULAR HGB CONC 33 g/dL (31-37); MEAN CORPUSCULAR VOLUME 93 fL (79-100); MONO % 6 % (0-9); NEUT % 47 % (31-73); PLATELET COUNT 103 x10^3/uL (140-400); RED BLOOD COUNT 4.74 x10^6/uL (3.50-5.40); RED CELL DISTRIBUTION WIDTH 14.2 % (11.5-14.5); WHITE BLOOD COUNT 5.4 x10^3/uL (4.0-11.0)
[2017-03-25 06:22] LABS: CALCIUM 8.5 mg/dL (8.5-10.1); CREATININE 1.1 mg/dL (0.6-1.0); GFR 50.3; POTASSIUM 3.5 mmol/L (3.5-5.1)
[2017-03-25 06:39] LABS: CHOLESTEROL/HDL RATIO 3.9
[2017-03-25 06:51] LABS: BARBITURATES NEG (NEG); BENZODIAZEPINES NEG (NEG); CANNABINOIDS NEG (NEG); COCAINE NEG (NEG); METHADONE NEG (NEG); OPIATES POS (NEG); PHENCYCLIDINE NEG (NEG)
[2017-03-25 07:15] VITALS: BP 91/55
--- NOTE | 2017-03-25 08:34 | RAD ---
Abdominal ultrasound, 03/24/2017: History: Abdominal pain, hepatitis C The gallbladder is at the upper limits of normal in size. There is no sonographic evidence of cholelithiasis. The common hepatic duct is of normal caliber. No hepatic mass is identified. The visualized portions of the pancreatic body show no abnormality. Other portions of the pancreas were obscured by overlying bowel. The spleen is at the upper limits of normal in size measuring 13.2 cm in craniocaudad extent. No renal abnormality is detected. There is atherosclerotic plaquing of the abdominal aorta without evidence of aneurysm. The inferior vena cava is unremarkable. IMPRESSION: 1. Borderline splenomegaly. 2. The abdominal ultrasound is otherwise unremarkable.
--- NOTE | 2017-03-25 10:17 | RAD ---
Portable chest, 03/24/2017: History: Chest pain, hypertension, dizziness The heart size and pulmonary vascularity are normal. The lungs are clear. There is no evidence of pleural fluid. IMPRESSION: No acute cardiopulmonary abnormality is detected.
[2017-03-25 10:30] VITALS: BP 104/47
[2017-03-25] MEDS ORDERED: OXYC5TAB95 PO (10:36)
[2017-03-25] MEDS ORDERED: ALPR0.254 PO (11:04)
[2017-03-25] MEDS: ALPRAZolam 0.25 MG TABLET PO PRN ×2 (11:19→20:19)
--- NOTE | 2017-03-25 12:19 | EKG ---
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 RI6.01 No previous ECG available for comparison Electronically Signed On 04-12-2017 17:08:21 CDT by Fermín Holland
--- NOTE | 2017-03-25 12:36 | CARD ---
APPROVED REPORT EXAM: Two-dimensional and M-mode echocardiogram with Doppler and color Doppler. Other Information Quality : Average Rhythm : Atrial Fibrillation INDICATION Chest Pain 2D DIMENSIONS Left Atrium(2D)3.0 (1.6-4.0cm)IVSd0.9 (0.7-1.1cm) Aortic Root(2D)2.9 (2.0-3.7cm)LVDd4.2 (3.9-5.9cm) LVOT Diameter2.0 (1.8-2.4cm)PWd0.9 (0.7-1.1cm) LVDs3.1 (2.5-4.0cm)FS (%) 27.4 % SV42.7 mlLVEF(%)53.6 (>50%) Aortic Valve AoV VTI23.4cmAO Peak GR.5.0mmHg LVOT VTI 22.40cmAO Mean GR.3mmHg AI P 1/2 [id number] Mitral Valve MV E Velocity0.5cm/sMV DECEL [id number] MV A Velocity0.5cm/sE/A Ratio1.0 MVA (PHT)5.50cm2 Tricuspid Valve TR P. [id number] [id number] TR Peak [id number] LEFT VENTRICLE The left ventricle is normal size. There is normal left ventricular wall thickness. Left ventricle sy stolic function is normal. The Ejection Fraction is 50-55%. There is normal LV segmental wall motion. The left ventricular diastolic function and filling is normal for age. RIGHT VENTRICLE The right ventricle is normal size. The right ventricular systolic function is normal. ATRIA The left atrium size is normal. The right atrium size is normal. The interatrial septum is intact wit h no evidence for an atrial septal defect or patent foramen ovale as noted on 2-D or Doppler imaging. AORTIC VALVE The aortic valve is not well visualized. Doppler and Color Flow revealed mild to moderate aortic regu rgitation. There is no significant aortic valvular stenosis. MITRAL VALVE The mitral valve is normal in structure and function. There is no mitral valve stenosis. Doppler and Color Flow revealed mild mitral regurgitation. TRICUSPID VALVE The tricuspid valve is normal in structure. Doppler and Color Flow revealed mild tricuspid regurgitat ion. The PA pressure was estimated at 30 mmHg. There is no tricuspid valve stenosis. PULMONIC VALVE The pulmonic valve is not well visualized. Doppler and Color Flow revealed trace pulmonic valvular re gurgitation. There is no pulmonic valvular stenosis. GREAT VESSELS The aortic root is normal in size. The IVC is dilated and collapses >50% with inspiration. PERICARDIAL EFFUSION There is no evidence of significant pericardial effusion. Critical Notification Critical Value: No <Conclusion> Left ventricle systolic function is normal. The Ejection Fraction is 50-55%. There is normal LV segmental wall motion. Doppler and Color Flow revealed mild to moderate aortic regurgitation.
--- NOTE | 2017-03-25 14:13 | PDOC3 ---
Discharge Summary [facility] Date of Admission: Mar 24, 2017 Discharge Date: Mar 25, 2017 Admitting Diagnosis chest pain, likely 2/2 anxiety htn h/o hep C wo treatment severe anxiety chronic RUQ abd pain chronic back pain Problems: Final Diagnosis CONSULTS gi card Brief Hospital Course 62-year-old female presenting the emergency department today with chest pain, abd pain and back pain chronically. Pt very anxious, kept talking about she has hep C , never treated, and "fluid in the abd" cause severe pain, which makes her htn AND CHEST PAIN. sHE Said chest pain intermittent for a few weeks, happens any time. 9/10, with dipharesis, sob, nausea, denies vomiting, cough, fever, chills. Pt looks very anxious to me, but NO DYSPNEA in ER. however, when i asked her do you feel sob NOW? she said yes and said pain is 9/10, no tenderness. She said she takes oxycodone 15mg prn, but cannot find a pain doc, waiting to see a new PCP in 4 weeks. has chronic RUQ pain for which pt kept saying has hep c WITH " thousands unit LFT" and doc told her " had fluid which cause abd pain" chronic back pain with sx, last time MRI about 1 year ago no acute change. Troponin neg, EKG neg. US abd showed mild splenomegaly, otherwise normal. Card consulted, no intervention, echo normal. gi consult pending, ordered abd CT, and HIDA. results pending. if no intervention, will dc today dc time 35min. GEN.: very anxious HEENT: Head is normocephalic, atraumatic NECK: Supple. LUNGS: Clear to auscultation. HEART: RRR, S1, S2 present. Peripheral pulses intact ABDOMEN: Soft, Positive bowel sounds. epigastric and RUQ mild tenderness. no guarding or rebound. EXTREMITIES: Without any cyanosis. NEUROLOGIC: Normal speech, normal tone PSYCHIATRIC: Normal affect, normal mood. SKIN: No ulcerations Patient History: Problems: Disposition home CONDITION AT DISCHARGE: Improved Diet regular Scheduled PRN Alprazolam (Alprazolam), 0.25 MG PO PRN Q8HRS PRN for ANXIETY / AGITATION Oxycodone Hcl (Oxycodone Hcl), 10 MG PO PRN Q6HRS PRN for PAIN Discontinued Medications Amoxicillin (Amoxicillin), 1 TAB PO BID Amoxicillin (Amoxicillin), 1 TAB PO BID Amoxicillin/Potassium Clav (Augmentin 875-125 Tablet), 1 TAB PO BID Amoxicillin/Potassium Clav (Augmentin 875-125 Tablet), 1 TAB PO BID Clindamycin Hcl (Clindamycin Hcl), 1 CAP PO TID Doxycycline Hyclate (Doxycycline Hyclate), 100 MG PO BID Hydrocodone/Apap 5-325 (Paris 5-325 Tablet), 1 TAB PO PRN Q6HRS PRN for PAIN Hydrocodone/Apap 5-325 (Paris 5-325 Tablet), 1-2 TAB PO Q4-6HRS Hydrocodone/Apap 5-325 ([place] 5-325 Tablet), 1 TAB PO PRN Q6HRS PRN for PAIN Hydroxyzine Hcl (Hydroxyzine Hcl), 1 TAB PO Q4-6HRS PRN for RASH Prednisone (Prednisone), 1 TAB PO DAILY Prochlorperazine Maleate (Compazine), 10 MG PO Q8HRS PRN for NAUSEA Promethazine Hcl (Promethazine Hcl), 1 TAB PO Q6-8HRS Promethazine Hcl (Promethazine Hcl), 12.5 MG PO Q6H PRN for NAUSEA/VOMITING Promethazine Hcl (Promethazine Hcl), 1 TAB PO PRN Q6HRS Follow Up pcp in 2 weeks TSERING BENOIT MD Mar 25, 2017 14:13
[2017-03-25 14:30] VITALS: BP 94/56
--- NOTE | 2017-03-25 15:37 | CONS ---
DATE OF CONSULTATION: 03/25/2017 GASTROINTESTINAL CONSULTATION DATE OF SERVICE: 03/25/2017 REQUESTING PHYSICIAN: Dr. Miles Nelson. PRIMARY CARE PHYSICIAN: Dr. Siria Coelho. REASON FOR CONSULTATION: Abdominal pain. HISTORY OF PRESENT ILLNESS: This is a 62-year-old female who was admitted to the Emergency Room for chest pain, abdominal pain and back pain. She reports that she has history of hepatitis C that was diagnosed in [place]. She thinks she is doing genotype 2, but does not know for sure. She was told that there was no treatment when she was initially diagnosed. She has not pursued further evaluation. The pain that she is complaining of is in her gallbladder region and in her back. It is not affected by food. She did have an EGD and colonoscopy in [place] that reportedly did not reveal anything. She does admit to nausea, but denies any emesis. She has a bowel movement every other day, but denies any blood in her stool. She takes oxycodone, but has been unable to find a pain doctor to fill this medication for her. PAST MEDICAL HISTORY: 1. Hypertension. 2. Hepatitis C. 3. Chronic back pain. 4. Pneumonia. 5. Question of cirrhosis. 6. Back surgery. 7. Appendectomy. 8. Hysterectomy. 9. Tonsillectomy. FAMILY HISTORY: She is adopted. SOCIAL HISTORY: She smokes a pack of Marlboros a day. She drinks alcohol socially. She denies IV drug abuse. ALLERGIES: No known drug allergies. HOME MEDICATIONS: Include alprazolam, oxycodone. REVIEW OF SYSTEMS: A 13-point review of systems was done. It is positive as per HPI including back pain, but otherwise negative. PHYSICAL EXAMINATION: VITAL SIGNS: Temperature is 98, blood pressure 104/47, heart rate 66. GENERAL: She is a well-developed, well-nourished female, in no apparent distress. HEENT: Oropharynx is clear. CARDIOVASCULAR: S1, S2. LUNGS: Clear. ABDOMEN: Normoactive bowel sounds, soft, mildly tender to palpation, right upper quadrant. EXTREMITIES: No edema. NEUROLOGIC: Awake, alert and oriented x 3. LABORATORY DATA: White blood cell count of 5.4, hemoglobin 14.6, platelets 103. Chemistries initially showed an AST of 69, ALT 90, alkaline phosphatase 183. Normal bilirubin at 0.3. Lipase is normal at 89. IMAGING STUDIES: Abdominal ultrasound showed borderline splenomegaly, but no note of cirrhosis. ASSESSMENT AND PLAN: 1. Right upper quadrant abdominal pain: At this time, it is not clear, the etiology. Her abdominal sonogram does show the gallbladder at its upper limits of normal. I will go ahead and check PIPIDA as well as abdominal CT for further evaluation. Her elevated LFTs may be secondary to hepatitis C versus possible gallbladder disease. 2. Hepatitis C: She reports that this was diagnosed in [place]. She thinks it may be genotype 2. An acute hepatitis panel has been ordered. I will await results and favor checking genotype for further evaluation. 3. Elevated liver function tests: This may be secondary to hepatitis C versus possible gallbladder disease. Again, we will await some serologies as well as a PIPIDA and a CT of the abdomen and pelvis. Thank you for allowing me to participate in the care of this patient. TATIANA CLEMENS MD DR: ESTEFANY/sergey JOB#: [id number] / [id number]
[2017-03-25] MEDS ORDERED: IOHEXOL 240 MG/ML 50ML VIAL. PO ONE (16:45)
[2017-03-25] MEDS ORDERED: IOHEXOL 300 MG/ML 75 ML VIAL IV ONE (16:45)
[2017-03-25] MEDS ORDERED: CONTRAST GIVEN MC PRN (16:45)
[2017-03-25 19:45] VITALS: BP 120/71
[2017-03-25] MEDS: ENOXAPARIN 40 MG/0.4 ML SYRINGE. SQ SCH (20:14)
[2017-03-25] MEDS: MORPHINE SULFATE 2 MG/ML DISP.SYRIN. IV PRN (20:20)
[2017-03-25 23:25] VITALS: BP 95/59
[2017-03-26 03:30] VITALS: BP 111/60
[2017-03-26] MEDS: MORPHINE SULFATE 2 MG/ML DISP.SYRIN. IV PRN ×2 (03:46→16:05)
[2017-03-26 04:41] LABS: BASO # 0.1 x10^3/uL (0.0-0.2); BASO % 1 % (0-3); EOS % 7 % (0-3); HEMATOCRIT 41.8 % (36.0-47.0); HEMOGLOBIN 13.7 g/dL (12.0-15.5); LYMPH % 50 % (24-48); MEAN CORPUSCULAR HEMOGLOBIN 31 pg (25-35); MEAN CORPUSCULAR HGB CONC 33 g/dL (31-37); MEAN CORPUSCULAR VOLUME 94 fL (79-100); MONO % 8 % (0-9); NEUT % 34 % (31-73); PLATELET COUNT 95 x10^3/uL (140-400); RED BLOOD COUNT 4.46 x10^6/uL (3.50-5.40); RED CELL DISTRIBUTION WIDTH 14.4 % (11.5-14.5); WHITE BLOOD COUNT 4.1 x10^3/uL (4.0-11.0)
[2017-03-26 05:12] LABS: CALCIUM 8.5 mg/dL (8.5-10.1); GFR 56.2; POTASSIUM 4.4 mmol/L (3.5-5.1)
[2017-03-26 07:00] VITALS: BP 120/70
[2017-03-26] MEDS: oxyCODONE IR 5 MG TABLET PO PRN ×3 (07:56→20:07)
[2017-03-26] MEDS: ONDANSETRON PF 4 MG/2 ML VIAL. IV PRN ×2 (07:57→20:08)
[2017-03-26] MEDS ORDERED: SINCALIDE 1.6 MCG in IV NORMAL SALINE 50ML 30 ML IV ONE (09:30)
[2017-03-26] MEDS ORDERED: fentaNYL PF VIAL 100 MCG/2 ML VIAL IV ONE (10:15)
[2017-03-26 11:00] VITALS: BP 146/63
--- NOTE | 2017-03-26 11:18 | RAD ---
Indication chronic abdominal pain. Hepatobiliary scan was performed. 5 mCi of technetium labeled Choletec was administered. 1.6 mcg of CCK was diluted in saline and administered over several minutes. Following the CCK administration a gallbladder ejection fraction calculation was made. There is normal uptake of the radiopharmaceutical in the liver. Activity is seen early in the biliary system and gallbladder. Following the Kinevac administration the estimated gallbladder ejection fraction approaches 90%. IMPRESSION: Normal study
[2017-03-26] MEDS: ALPRAZolam 0.25 MG TABLET PO PRN ×2 (11:46→20:07)
[2017-03-26] MEDS ORDERED: oxyCODONE IR 5 MG TABLET PO ONE (12:00)
--- NOTE | 2017-03-26 12:46 | PDOC ---
Subjective: Subjective: Has concerns and questions. RUQ and epigastric pain - thinks related to her liver and an ulcer. Wants an EGD. H/o occasional heartburn improved w/ Tums or Rolaids. H/o Hep C, says her last "liver count" was 11,000,000 - wants treatment now. Says saw a liver doctor here but didn't follow-up because had a lot of family issues in [place] to attend to. Previous EGD and colonoscopy "years and years" ago. Objective: Objective: Per RN - multiple concerns. Possible DC today. Vital Signs: Vital Signs Date Time Temp Pulse Resp B/P (MAP) Pulse Ox O2 Delivery O2 Flow Rate FiO2 03/26/17 12:07 96 Room Air 03/26/17 11:00 97.7 59 18 146/63 (90) 97.7 Imaging: HIDA IMPRESSION: Normal study. CT A/P PENDING Abd US IMPRESSION: 1. Borderline splenomegaly. 2. The abdominal ultrasound is otherwise unremarkable. Echocardiogram <Conclusion> Left ventricle systolic function is normal. The Ejection Fraction is 50-55%. There is normal LV segmental wall motion. Doppler and Color Flow revealed mild to moderate aortic regurgitation. PE: GEN: NAD LUNGS: CTAB HEART: RRR ABD: epigastric/RUQ discomfort (mild) NEURO/PSYCH: A & O 3, seems annoyed A/P: RUQ/epigastric pain -imaging as above, CT report pending Hep C -diagnosed years ago; Hepatitis panel pending -seems last viral load was 11,000,000? -no previous treatment Elevated LFTs Thrombocytopenia Heartburn -occasional, improved w/ Tums/Rolaids, previous EGD years ago -- She is now interested in Hep C treatment and would also like to have an EGD. Will review w/ Dr. Johnson. JEANNE BLISS Mar 26, 2017 12:46
[2017-03-26 14:20] LABS: HEP A IGM ABDY Negative (Negative)
[2017-03-26 14:52] VITALS: BP 131/62
--- NOTE | 2017-03-26 15:23 | PDOC ---
PROGRESS NOTES Chief Complaint Chief Complaint chest pain, need to rule out unstable angina, vs anxiety htn h/o hep C wo treatment severe anxiety chronic abd pain chronic back pain plan: card, gi consulted, ordered HIDA neg, ABD CT pending echo normal US abd normal cycle CE normal CHECK LIPID PANEL TSH, all neg ekg neg OXYCODone for now check heptitis panel, hep C Ab + dvt ppx gi will do EGD tmr, hold dc History of Present Illness History of Present Illness ROS: no fever, chills, sob or chest pain cont c/o RUQ pain, back pain, all chronic Vitals Vitals Vital Signs Date Time Temp Pulse Resp B/P (MAP) Pulse Ox O2 Delivery O2 Flow Rate FiO2 03/26/17 14:52 97.7 62 18 131/62 (85) 98 Room Air 97.7 Physical Exam General: Alert, Oriented X3, Cooperative Heart: Regular rate, Normal S1, Normal S2 Lungs: Clear Abdomen: Normal bowel sounds, Soft, Other (RUQ tenderenss) Extremities: No clubbing, No cyanosis Skin: No rashes Labs LABS Laboratory Tests Test 03/26/17 04:30 White Blood Count 4.1 x10^3/uL (4.0-11.0) Red Blood Count 4.46 x10^6/uL (3.50-5.40) Hemoglobin 13.7 g/dL (12.0-15.5) Hematocrit 41.8 % (36.0-47.0) Mean Corpuscular Volume 94 fL (79-100) Mean Corpuscular Hemoglobin 31 pg (25-35) Mean Corpuscular Hemoglobin Concent 33 g/dL (31-37) Red Cell Distribution Width 14.4 % (11.5-14.5) Platelet Count 95 x10^3/uL (140-400) Neutrophils (%) (Auto) 34 % (31-73) Lymphocytes (%) (Auto) 50 % (24-48) Monocytes (%) (Auto) 8 % (0-9) Eosinophils (%) (Auto) 7 % (0-3) Basophils (%) (Auto) 1 % (0-3) Neutrophils # (Auto) 1.4 x10^3uL (1.8-7.7) Lymphocytes # (Auto) 2.0 x10^3/uL (1.0-4.8) Monocytes # (Auto) 0.3 x10^3/uL (0.0-1.1) Eosinophils # (Auto) 0.3 x10^3/uL (0.0-0.7) Basophils # (Auto) 0.1 x10^3/uL (0.0-0.2) Sodium Level 143 mmol/L (136-145) Potassium Level 4.4 mmol/L (3.5-5.1) Chloride Level 110 mmol/L (98-107) Carbon Dioxide Level 28 mmol/L (21-32) Anion Gap 5 (6-14) Blood Urea Nitrogen 14 mg/dL (7-20) Creatinine 1.0 mg/dL (0.6-1.0) Estimated GFR (Cockcroft-Gault) 56.2 Glucose Level 97 mg/dL (70-99) Calcium Level 8.5 mg/dL (8.5-10.1) Assessment and Plan Assessmemt and Plan Problems Medical Problems: (1) Chest pain Status: Acute Problems: Comment Review of Relevant I have reviewed the following items nelida (where applicable) has been applied. Labs Laboratory Tests Test 03/24/17 15:53 03/24/17 22:00 03/25/17 00:30 03/25/17 05:00 White Blood Count 5.3 x10^3/uL (4.0-11.0) 5.4 x10^3/uL (4.0-11.0) Red Blood Count 4.84 x10^6/uL (3.50-5.40) 4.74 x10^6/uL (3.50-5.40) Hemoglobin 14.8 g/dL (12.0-15.5) 14.6 g/dL (12.0-15.5) Hematocrit 44.9 % (36.0-47.0) 43.8 % (36.0-47.0) Mean Corpuscular Volume 93 fL (79-100) 93 fL (79-100) Mean Corpuscular Hemoglobin 31 pg (25-35) 31 pg (25-35) Mean Corpuscular Hemoglobin Concent 33 g/dL (31-37) 33 g/dL (31-37) Red Cell Distribution Width 14.0 % (11.5-14.5) 14.2 % (11.5-14.5) Platelet Count 110 x10^3/uL (140-400) 103 x10^3/uL (140-400) Neutrophils (%) (Auto) 49 % (31-73) 47 % (31-73) Lymphocytes (%) (Auto) 38 % (24-48) 41 % (24-48) Monocytes (%) (Auto) 7 % (0-9) 6 % (0-9) Eosinophils (%) (Auto) 6 % (0-3) 5 % (0-3) Basophils (%) (Auto) 1 % (0-3) 1 % (0-3) Neutrophils # (Auto) 2.6 x10^3uL (1.8-7.7) 2.6 x10^3uL (1.8-7.7) Lymphocytes # (Auto) 2.0 x10^3/uL (1.0-4.8) 2.2 x10^3/uL (1.0-4.8) Monocytes # (Auto) 0.4 x10^3/uL (0.0-1.1) 0.3 x10^3/uL (0.0-1.1) Eosinophils # (Auto) 0.3 x10^3/uL (0.0-0.7) 0.3 x10^3/uL (0.0-0.7) Basophils # (Auto) 0.0 x10^3/uL (0.0-0.2) 0.0 x10^3/uL (0.0-0.2) Sodium Level 142 mmol/L (136-145) 143 mmol/L (136-145) Potassium Level 3.8 mmol/L (3.5-5.1) 3.5 mmol/L (3.5-5.1) Chloride Level 108 mmol/L (98-107) 108 mmol/L (98-107) Carbon Dioxide Level 27 mmol/L (21-32) 26 mmol/L (21-32) Anion Gap 7 (6-14) 9 (6-14) Blood Urea Nitrogen 14 mg/dL (7-20) 14 mg/dL (7-20) Creatinine 1.4 mg/dL (0.6-1.0) 1.1 mg/dL (0.6-1.0) Estimated GFR (Cockcroft-Gault) 38.1 50.3 Glucose Level 111 mg/dL (70-99) 91 mg/dL (70-99) Calcium Level 8.2 mg/dL (8.5-10.1) 8.5 mg/dL (8.5-10.1) Total Bilirubin 0.3 mg/dL (0.2-1.0) Direct Bilirubin 0.1 mg/dL (0.0-0.2) Aspartate Amino Transf (AST/SGOT) 69 U/L (15-37) Alanine Aminotransferase (ALT/SGPT) 90 U/L (14-59) Alkaline Phosphatase 183 U/L (46-116) Troponin I Quantitative < 0.017 ng/mL (0.000-0.055) < 0.017 ng/mL (0.000-0.055) < 0.017 ng/mL (0.000-0.055) AN-Ink-G-Type Natriuretic Peptide 112 pg/mL (0-124) Total Protein 7.2 g/dL (6.4-8.2) Albumin 2.8 g/dL (3.4-5.0) Lipase 89 U/L (73-393) Creatine Kinase 40 U/L (26-192) Creatine Kinase MB (Mass) 0.7 ng/mL (0.0-3.6) Creatine Kinase MB Relative Index % (0-4) Thyroid Stimulating Hormone (TSH) 3.244 uIU/mL (0.358-3.74) Hepatitis A IgM Antibody Negative (Negative) Hepatitis B Surface Antigen Negative (Negative) Hepatitis B Core IgM Antibody Negative (Negative) Hepatitis C Antibody >11.0 s/co ratio Urine Opiates Screen Pos (NEG) Urine Methadone Screen Neg (NEG) Urine Barbiturates Neg (NEG) Urine Phencyclidine Screen Neg (NEG) Urine Amphetamine/Methamphetamine Neg (NEG) Urine Benzodiazepines Screen Neg (NEG) Urine Cocaine Screen Neg (NEG) Urine Cannabinoids Screen Neg (NEG) Urine Ethyl Alcohol Neg (NEG) Triglycerides Level 65 mg/dL (0-150) Cholesterol Level 116 mg/dL (0-200) LDL Cholesterol, Calculated 73 mg/dL (0-100) VLDL Cholesterol, Calculated 13 mg/dL (0-40) Non-HDL Cholesterol Calculated 86 mg/dL (0-129) HDL Cholesterol 30 mg/dL (40-60) Cholesterol/HDL Ratio 3.9 Test 03/26/17 04:30 White Blood Count 4.1 x10^3/uL (4.0-11.0) Red Blood Count 4.46 x10^6/uL (3.50-5.40) Hemoglobin 13.7 g/dL (12.0-15.5) Hematocrit 41.8 % (36.0-47.0) Mean Corpuscular Volume 94 fL (79-100) Mean Corpuscular Hemoglobin 31 pg (25-35) Mean Corpuscular Hemoglobin Concent 33 g/dL (31-37) Red Cell Distribution Width 14.4 % (11.5-14.5) Platelet Count 95 x10^3/uL (140-400) Neutrophils (%) (Auto) 34 % (31-73) Lymphocytes (%) (Auto) 50 % (24-48) Monocytes (%) (Auto) 8 % (0-9) Eosinophils (%) (Auto) 7 % (0-3) Basophils (%) (Auto) 1 % (0-3) Neutrophils # (Auto) 1.4 x10^3uL (1.8-7.7) Lymphocytes # (Auto) 2.0 x10^3/uL (1.0-4.8) Monocytes # (Auto) 0.3 x10^3/uL (0.0-1.1) Eosinophils # (Auto) 0.3 x10^3/uL (0.0-0.7) Basophils # (Auto) 0.1 x10^3/uL (0.0-0.2) Sodium Level 143 mmol/L (136-145) Potassium Level 4.4 mmol/L (3.5-5.1) Chloride Level 110 mmol/L (98-107) Carbon Dioxide Level 28 mmol/L (21-32) Anion Gap 5 (6-14) Blood Urea Nitrogen 14 mg/dL (7-20) Creatinine 1.0 mg/dL (0.6-1.0) Estimated GFR (Cockcroft-Gault) 56.2 Glucose Level 97 mg/dL (70-99) Calcium Level 8.5 mg/dL (8.5-10.1) Laboratory Tests Test 03/26/17 04:30 White Blood Count 4.1 x10^3/uL (4.0-11.0) Red Blood Count 4.46 x10^6/uL (3.50-5.40) Hemoglobin 13.7 g/dL (12.0-15.5) Hematocrit 41.8 % (36.0-47.0) Mean Corpuscular Volume 94 fL (79-100) Mean Corpuscular Hemoglobin 31 pg (25-35) Mean Corpuscular Hemoglobin Concent 33 g/dL (31-37) Red Cell Distribution Width 14.4 % (11.5-14.5) Platelet Count 95 x10^3/uL (140-400) Neutrophils (%) (Auto) 34 % (31-73) Lymphocytes (%) (Auto) 50 % (24-48) Monocytes (%) (Auto) 8 % (0-9) Eosinophils (%) (Auto) 7 % (0-3) Basophils (%) (Auto) 1 % (0-3) Neutrophils # (Auto) 1.4 x10^3uL (1.8-7.7) Lymphocytes # (Auto) 2.0 x10^3/uL (1.0-4.8) Monocytes # (Auto) 0.3 x10^3/uL (0.0-1.1) Eosinophils # (Auto) 0.3 x10^3/uL (0.0-0.7) Basophils # (Auto) 0.1 x10^3/uL (0.0-0.2) Sodium Level 143 mmol/L (136-145) Potassium Level 4.4 mmol/L (3.5-5.1) Chloride Level 110 mmol/L (98-107) Carbon Dioxide Level 28 mmol/L (21-32) Anion Gap 5 (6-14) Blood Urea Nitrogen 14 mg/dL (7-20) Creatinine 1.0 mg/dL (0.6-1.0) Estimated GFR (Cockcroft-Gault) 56.2 Glucose Level 97 mg/dL (70-99) Calcium Level 8.5 mg/dL (8.5-10.1) Medications Current Medications Acetaminophen (Tylenol) 650 mg PRN Q6HRS PRN PO FEVER; Start 03/24/17 at 18:30 Ondansetron HCl (Zofran) 4 mg PRN Q6HRS PRN IV NAUSEA/VOMITING Last administered on 03/26/17 07:57; Start 03/24/17 at 18:30 Morphine Sulfate 2 mg PRN Q2HR PRN IV PAIN Last administered on 03/26/17 03:46 ; Start 03/24/17 at 18:30 Tramadol HCl (Ultram) 50 mg PRN Q6HRS PRN PO PAIN Last administered on 00:24; Start 03/24/17 at 18:30 Hydralazine HCl (Apresoline) 10 mg PRN Q4HRS PRN IVP ELEVATED BP, SEE COMMENTS ; Start 03/24/17 at 18:30 Docusate Sodium (Colace) 100 mg PRN DAILY PRN PO CONSTIPATION; Start 03/24/17 at 18:30 Oxycodone HCl (Roxicodone) 10 mg PRN Q6HRS PRN PO PAIN Last administered on 14:01; Start 03/24/17 at 18:30 Enoxaparin Sodium (Lovenox 40mg Syringe) 40 mg Q24H SQ ; Start 03/24/17 at 21:00 Aspirin (Children'S Aspirin) 324 mg 1X ONCE PO Last administered on 03/24/17 20:16; Start 03/24/17 at 19:15; Stop 03/24/17 at 19:16; Status DC Info (Do NOT chart on this placeholder) 1 each 1X ONCE MC ; Start 03/24/17 at 19:45; Stop 03/24/17 at 19:46; Status UNV Pneumococcal Polyvalent Vaccine (Do NOT chart on this placeholder) 1 each 1X ONCE MC ; Start 03/24/17 at 19:45; Stop 03/24/17 at 19:46; Status UNV Pneumococcal Polyvalent Vaccine (Pneumovax 23) 0.5 ml ONCE ONCE VAX IM ; Start 03/24/17 at 21:00; Stop 03/24/17 at 21:01; Status DC Influenza Virus Vaccine Quadrival (Fluarix Quad [id number] Syringe) 0.5 ml ONCE ONCE VAX IM ; Start 03/24/17 at 21:00; Stop 03/24/17 at 21:01; Status DC Alprazolam (Xanax) 0.25 mg PRN Q8HRS PRN PO ANXIETY / AGITATION Last administered on 03/26/17 11:46; Start 03/25/17 at 11:00 Iohexol (Omnipaque 300 Mg/ml) 75 ml 1X ONCE IV Last administered on 03/25/17 18:07; Start 03/25/17 at 16:45; Stop 03/25/17 at 16:46; Status DC Iohexol (Omnipaque 240 Mg/ml) 50 ml 1X ONCE PO Last administered on 03/25/17 18:07; Start 03/25/17 at 16:45; Stop 03/25/17 at 16:46; Status DC Info (Do NOT chart on this entry -- for MONITORING) 1 each PRN DAILY PRN MC SEE COMMENTS; Start 03/25/17 at 16:45; Stop 03/27/17 at 16:44 Sincalide 1.6 mcg/ Sodium Chloride 30 ml @ 120 mls/hr 1X ONCE IV Last administered on 03/26/17 09:40; Start 03/26/17 at 09:30; Stop 03/26/17 at 09:44 ; Status DC Fentanyl Citrate (Fentanyl 2ml Vial) 50 mcg 1X ONCE IV Last administered on 10:30; Start 03/26/17 at 10:15; Stop 03/26/17 at 10:16; Status DC Oxycodone HCl (Roxicodone) 5 mg 1X ONCE PO Last administered on 03/26/17 12: 07; Start 03/26/17 at 12:00; Stop 03/26/17 at 12:01; Status DC Active Scripts Active Alprazolam 0.25 Mg Tablet 0.25 Mg PO PRN Q8HRS PRN Oxycodone Hcl 5 Mg Tablet 10 Mg PO PRN Q6HRS PRN Vitals/I & O Vital Sign - Last 24 Hours 03/25/17 03/25/17 03/25/17 03/25/17 15:52 16:52 19:45 20:00 Temp 97.8 97.8 Pulse 59 Resp 18 18 B/P (MAP) 120/71 (87) Pulse Ox 96 96 97 O2 Delivery Room Air Room Air Room Air Room Air 03/25/17 03/25/17 03/25/17 03/26/17 20:20 23:25 23:42 00:42 Temp 98.4 98.4 Pulse 77 Resp 22 20 22 20 B/P (MAP) 95/59 (71) Pulse Ox 99 O2 Delivery Room Air 03/26/17 03/26/17 03/26/17 03/26/17 03:30 03:46 04:16 07:00 Temp 97.4 97.6 97.4 97.6 Pulse 55 62 Resp 20 20 20 18 B/P (MAP) 111/60 (77) 120/70 (87) Pulse Ox 95 95 O2 Delivery Room Air Room Air 03/26/17 03/26/17 03/26/17 03/26/17 07:56 08:00 09:10 09:28 Resp 15 O2 Delivery Room Air Room Air Room Air Room Air 03/26/17 03/26/17 03/26/17 03/26/17 10:30 10:56 11:00 12:07 Temp 97.7 97.7 Pulse 59 Resp 18 B/P (MAP) 146/63 (90) Pulse Ox 95 95 96 96 O2 Delivery Room Air Room Air Room Air Room Air 03/26/17 03/26/17 03/26/17 13:18 14:01 14:52 Temp 97.7 97.7 Pulse 62 Resp 14 18 B/P (MAP) 131/62 (85) Pulse Ox 96 98 O2 Delivery Room Air Room Air Room Air TSERING BENOIT MD Mar 26, 2017 15:23
--- NOTE | 2017-03-26 15:29 | RAD ---
Indication right upper quadrant pain. Axial images to the abdomen and pelvis were obtained. Both oral and IV contrast were administered. Approximately 60 cc of Omnipaque 300 was administered intravenously. Note is made of the ultrasound examination of the abdomen 03/24/2017. No prior CT imaging of the abdomen is available. At the left lung base, in the lower lobe there is a 3 cm parenchymal mass with irregular borders highly suspect for primary malignancy. There is some volume loss in the right lower lobe most compatible with atelectasis. An acute finding in either lung base is not seen. The liver is unremarkable gallbladder appears grossly normal. The spleen is mildly enlarged but otherwise unremarkable. No adrenal pathology is seen in the kidneys appear normal. The pancreas appears unremarkable. An acute finding in the abdomen is not seen. The pelvis is unremarkable. IMPRESSION: 3 cm parenchymal mass in the left lower lobe highly suspect for primary malignancy. No acute finding seen in the abdomen or pelvis. Mild splenomegaly A preliminary copy of this report was faxed by Yamilka Rodriguez to [facility] Patient floor [address] and the patient's nurse, Yuri, received it on 03-26-17 at 12:23 pm. PQRS Compliance Statement: One or more of the following individualized dose reduction techniques were utilized for this examination: 1. Automated exposure control 2. Adjustment of the mA and/or kV according to patient size 3. Use of iterative reconstruction technique
[2017-03-26] MEDS: ENOXAPARIN 40 MG/0.4 ML SYRINGE. SQ SCH (19:42)
[2017-03-26 19:50] VITALS: BP 143/82
[2017-03-26 23:15] VITALS: BP 120/54
[2017-03-27 03:30] VITALS: BP 96/55
[2017-03-27] MEDS: oxyCODONE IR 5 MG TABLET PO PRN ×2 (03:38→16:39)
[2017-03-27 07:00] VITALS: BP 141/79
[2017-03-27] MEDS: ALPRAZolam 0.25 MG TABLET PO PRN ×2 (07:33→20:28)
[2017-03-27] MEDS: ONDANSETRON PF 4 MG/2 ML VIAL. IV PRN ×2 (07:33→14:46)
[2017-03-27] MEDS: MORPHINE SULFATE 2 MG/ML DISP.SYRIN. IV PRN ×3 (07:34→21:37)
[2017-03-27] MEDS: traMADol 50 MG TABLET PO PRN (07:34)
--- NOTE | 2017-03-27 08:52 | RAD ---
Indication lung mass identified, incidentally, on CT of the abdomen and pelvis. Axial images through the chest, noncontrast, were obtained. No prior CT imaging of the chest is available. Note is made of the CT examination of the abdomen and pelvis 03/25/2017 demonstrating a parenchymal mass in the left lower lobe. No prior CT imaging of the The known 3 cm parenchymal mass in the left lower lobe is reproduced. Again it is highly suspect for primary malignancy. No additional dominant parenchymal mass is seen. There is a small 3 to 4 mm nodule in the right upper lobe, image 13 series 2 which is indeterminate. Some volume loss, probably reflecting atelectasis is noted in the right lower lobe. Imaging through the upper abdomen is unchanged relative to the recent exam. There is slight prominence of the ascending thoracic aorta. It measures maximally 4.3 cm in greatest dimension. There is no definite pathologic hilar or mediastinal adenopathy. IMPRESSION: Known 3 cm parenchymal mass in the left lower lobe, highly suspect for primary malignancy, is reproduced. Indeterminate small, 3 to 4 mm, pulmonary nodule in the right upper lobe. No definite pathologic hilar or mediastinal adenopathy is seen. Mild aneurysmal dilatation of the ascending thoracic aorta to approximately 4.3 cm PQRS Compliance Statement: One or more of the following individualized dose reduction techniques were utilized for this examination: 1. Automated exposure control 2. Adjustment of the mA and/or kV according to patient size 3. Use of iterative reconstruction technique
[2017-03-27 11:00] VITALS: BP 123/75
[2017-03-27] MEDS: IV RINGERS,LACTATED 1000ML 1,000 ML IV SCH ×2 (13:11→21:08)
[2017-03-27] MEDS ORDERED: MIDAZOLAM HCL/PF 2 MG/2 ML VIAL. IV PRN (13:15)
[2017-03-27] MEDS ORDERED: fentaNYL PF VIAL 100 MCG/2 ML VIAL IV PRN ×2 (13:15)
[2017-03-27] MEDS ORDERED: LIDOCAINE 1% PF 2 ML VIAL. ID PRN (13:15)
[2017-03-27] MEDS ORDERED: PROPOFOL 20 ML IV ONE (13:33)
--- NOTE | 2017-03-27 13:53 | PDOC4 ---
PROCEDURE Procedure EGD/biopsies Indication: NCCP/chronic HCV, varices? Meds: per anesthesia Findings: E--No varices. <grade I reflux esophagitis at 40cm. G--No varices. 8mm ulcer anterior wall, antrum, biopsied. Few scattered erosions pre-pyloric area; biopsies re: H.pylori. D--Normal to second portion. Linus. well. IMP: Mild reflux, though likely cause of NCCP. , likely benign, biopsies pending. REC: Continue PPI. Await path. Continue evaluation of lung lesion. GEOFFREY FLORES MD Mar 27, 2017 13:53
[2017-03-27] MEDS: PANTOPRAZOLE 40 MG TABLET.DR. PO SCH (14:46)
[2017-03-27 15:00] VITALS: BP 145/82
--- NOTE | 2017-03-27 15:02 | PDOC ---
PROGRESS NOTES Chief Complaint Chief Complaint chest pain, 2/2 anxiety htn h/o hep C wo treatment severe anxiety chronic abd pain chronic back pain new left lung mass 3cm on CT, likely not the reason to cause all her pain symptom EGD showed 8mm gastric ulcer and mild reflux esophagitis, no varices plan: card, gi consulted, ordered HIDA neg, abd and chest CT done echo normal US abd normal cycle CE normal CHECK LIPID PANEL TSH, all neg ekg neg OXYCODone for now check heptitis panel, hep C Ab + dvt ppx protonix daily pulm consulted for lung mass, likely can fu as outpt dc tmr History of Present Illness History of Present Illness ROS: no fever, chills, sob or chest pain cont c/o RUQ pain, back pain, all chronic Vitals Vitals Vital Signs Date Time Temp Pulse Resp B/P (MAP) Pulse Ox O2 Delivery O2 Flow Rate FiO2 03/27/17 14:20 56 20 105/61 97 Room Air 03/27/17 13:50 97.2 97.2 Physical Exam General: Alert, Oriented X3, Cooperative Heart: Regular rate, Normal S1, Normal S2 Lungs: Clear Abdomen: Normal bowel sounds, Soft, Other (RUQ tenderenss) Extremities: No clubbing, No cyanosis Skin: No rashes Assessment and Plan Assessmemt and Plan Problems Medical Problems: (1) Chest pain Status: Acute Problems: Comment Review of Relevant I have reviewed the following items nelida (where applicable) has been applied. Labs Laboratory Tests Test 03/26/17 04:30 White Blood Count 4.1 x10^3/uL (4.0-11.0) Red Blood Count 4.46 x10^6/uL (3.50-5.40) Hemoglobin 13.7 g/dL (12.0-15.5) Hematocrit 41.8 % (36.0-47.0) Mean Corpuscular Volume 94 fL (79-100) Mean Corpuscular Hemoglobin 31 pg (25-35) Mean Corpuscular Hemoglobin Concent 33 g/dL (31-37) Red Cell Distribution Width 14.4 % (11.5-14.5) Platelet Count 95 x10^3/uL (140-400) Neutrophils (%) (Auto) 34 % (31-73) Lymphocytes (%) (Auto) 50 % (24-48) Monocytes (%) (Auto) 8 % (0-9) Eosinophils (%) (Auto) 7 % (0-3) Basophils (%) (Auto) 1 % (0-3) Neutrophils # (Auto) 1.4 x10^3uL (1.8-7.7) Lymphocytes # (Auto) 2.0 x10^3/uL (1.0-4.8) Monocytes # (Auto) 0.3 x10^3/uL (0.0-1.1) Eosinophils # (Auto) 0.3 x10^3/uL (0.0-0.7) Basophils # (Auto) 0.1 x10^3/uL (0.0-0.2) Sodium Level 143 mmol/L (136-145) Potassium Level 4.4 mmol/L (3.5-5.1) Chloride Level 110 mmol/L (98-107) Carbon Dioxide Level 28 mmol/L (21-32) Anion Gap 5 (6-14) Blood Urea Nitrogen 14 mg/dL (7-20) Creatinine 1.0 mg/dL (0.6-1.0) Estimated GFR (Cockcroft-Gault) 56.2 Glucose Level 97 mg/dL (70-99) Calcium Level 8.5 mg/dL (8.5-10.1) Medications Current Medications Acetaminophen (Tylenol) 650 mg PRN Q6HRS PRN PO FEVER; Start 03/24/17 at 18:30 Ondansetron HCl (Zofran) 4 mg PRN Q6HRS PRN IV NAUSEA/VOMITING Last administered on 03/27/17 14:46; Start 03/24/17 at 18:30 Morphine Sulfate 2 mg PRN Q2HR PRN IV PAIN Last administered on 03/27/17 14: 47; Start 03/24/17 at 18:30 Tramadol HCl (Ultram) 50 mg PRN Q6HRS PRN PO PAIN Last administered on 07:34; Start 03/24/17 at 18:30 Hydralazine HCl (Apresoline) 10 mg PRN Q4HRS PRN IVP ELEVATED BP, SEE COMMENTS ; Start 03/24/17 at 18:30 Docusate Sodium (Colace) 100 mg PRN DAILY PRN PO CONSTIPATION; Start 03/24/17 at 18:30 Oxycodone HCl (Roxicodone) 10 mg PRN Q6HRS PRN PO PAIN Last administered on 03:38; Start 03/24/17 at 18:30 Enoxaparin Sodium (Lovenox 40mg Syringe) 40 mg Q24H SQ ; Start 03/24/17 at 21:00 Aspirin (Children'S Aspirin) 324 mg 1X ONCE PO Last administered on 03/24/17 20:16; Start 03/24/17 at 19:15; Stop 03/24/17 at 19:16; Status DC Info (Do NOT chart on this placeholder) 1 each 1X ONCE MC ; Start 03/24/17 at 19:45; Stop 03/24/17 at 19:46; Status UNV Pneumococcal Polyvalent Vaccine (Do NOT chart on this placeholder) 1 each 1X ONCE MC ; Start 03/24/17 at 19:45; Stop 03/24/17 at 19:46; Status UNV Pneumococcal Polyvalent Vaccine (Pneumovax 23) 0.5 ml ONCE ONCE VAX IM ; Start 03/24/17 at 21:00; Stop 03/24/17 at 21:01; Status DC Influenza Virus Vaccine Quadrival (Fluarix Quad [id number] Syringe) 0.5 ml ONCE ONCE VAX IM ; Start 03/24/17 at 21:00; Stop 03/24/17 at 21:01; Status DC Alprazolam (Xanax) 0.25 mg PRN Q8HRS PRN PO ANXIETY / AGITATION Last administered on 03/27/17 07:33; Start 03/25/17 at 11:00 Iohexol (Omnipaque 300 Mg/ml) 75 ml 1X ONCE IV Last administered on 03/25/17 18:07; Start 03/25/17 at 16:45; Stop 03/25/17 at 16:46; Status DC Iohexol (Omnipaque 240 Mg/ml) 50 ml 1X ONCE PO Last administered on 03/25/17 18:07; Start 03/25/17 at 16:45; Stop 03/25/17 at 16:46; Status DC Info (Do NOT chart on this entry -- for MONITORING) 1 each PRN DAILY PRN MC SEE COMMENTS; Start 03/25/17 at 16:45; Stop 03/27/17 at 16:44 Sincalide 1.6 mcg/ Sodium Chloride 30 ml @ 120 mls/hr 1X ONCE IV Last administered on 03/26/17 09:40; Start 03/26/17 at 09:30; Stop 03/26/17 at 09:44 ; Status DC Fentanyl Citrate (Fentanyl 2ml Vial) 50 mcg 1X ONCE IV Last administered on 10:30; Start 03/26/17 at 10:15; Stop 03/26/17 at 10:16; Status DC Oxycodone HCl (Roxicodone) 5 mg 1X ONCE PO Last administered on 03/26/17 12: 07; Start 03/26/17 at 12:00; Stop 03/26/17 at 12:01; Status DC Midazolam HCl (Versed) 2 mg PRN 1X PRN IV PRIOR TO PROCEDURE; Start 03/27/17 at 13:15; Stop 03/28/17 at 13:14 Fentanyl Citrate (Fentanyl 2ml Vial) 25 mcg PRN Q5MIN PRN IV X 2 DOSES FOR PAIN ; Start 03/27/17 at 13:15; Stop 03/28/17 at 13:14 Fentanyl Citrate (Fentanyl 2ml Vial) 50 mcg PRN Q5MIN PRN IV X 2 DOSES FOR PAIN ; Start 03/27/17 at 13:15; Stop 03/28/17 at 13:14 Ringer's Solution 1,000 ml @ 125 mls/hr Q8H IV Last administered on 13:11; Start 03/27/17 at 13:08; Stop 03/28/17 at 01:07 Lidocaine HCl (Xylocaine-Mpf 1% Vial) 2 ml 1X PRN PRN ID IV START; Start 03/27 at 13:15; Stop 03/28/17 at 13:14 Propofol 20 ml @ As Directed STK-MED ONCE IV ; Start 03/27/17 at 13:33; Stop 03/27/17 at 13:34; Status DC Pantoprazole Sodium (Protonix) 40 mg DAILYAC PO Last administered on 14:46; Start 03/27/17 at 14:30 Active Scripts Active Alprazolam 0.25 Mg Tablet 0.25 Mg PO PRN Q8HRS PRN Oxycodone Hcl 5 Mg Tablet 10 Mg PO PRN Q6HRS PRN Vitals/I & O Vital Sign - Last 24 Hours 03/26/17 03/26/17 03/26/17 03/26/17 15:19 16:05 16:43 19:50 Temp 97.8 97.8 Pulse 69 Resp 15 18 B/P (MAP) 143/82 (102) Pulse Ox 98 98 98 O2 Delivery Room Air Room Air Room Air Room Air 03/26/17 03/26/17 03/26/17 03/27/17 20:00 20:07 23:15 03:30 Temp 98.3 97.7 98.3 97.7 Pulse 66 55 Resp 22 18 18 B/P (MAP) 120/54 (76) 96/55 (69) Pulse Ox 99 97 O2 Delivery Room Air Room Air Room Air 03/27/17 03/27/17 03/27/17 03/27/17 03:38 04:38 07:00 07:34 Temp 97.4 97.4 Pulse 51 Resp 22 20 20 B/P (MAP) 141/79 (99) Pulse Ox 96 97 O2 Delivery Room Air Room Air 03/27/17 03/27/17 03/27/17 03/27/17 07:34 08:10 11:00 13:02 Temp 97.5 97.5 Pulse 57 Resp 20 B/P (MAP) 123/75 (91) Pulse Ox 97 95 O2 Delivery Room Air Room Air Room Air Room Air 03/27/17 03/27/17 03/27/17 03/27/17 13:06 13:50 14:05 14:20 Temp 97.3 97.2 97.3 97.2 Pulse 56 55 55 56 Resp 18 20 20 20 B/P (MAP) 97/55 97/52 105/61 Pulse Ox 98 94 95 97 O2 Delivery Room Air Room Air Room Air Intake and Output 03/27/17 03/27/17 03/28/17 15:00 23:00 07:00 Intake Total 200 ml Balance 200 ml TSERING BENOIT MD Mar 27, 2017 15:02
--- NOTE | 2017-03-27 16:26 | PDOC ---
PULMONARY PROGRESS NOTES Vitals Vital Signs Date Time Temp Pulse Resp B/P (MAP) Pulse Ox O2 Delivery O2 Flow Rate FiO2 03/27/17 15:38 97 Room Air 03/27/17 15:00 97.4 57 18 145/82 (103) 97.4 Lungs: Clear Labs Laboratory Tests Test 03/26/17 04:30 White Blood Count 4.1 x10^3/uL (4.0-11.0) Red Blood Count 4.46 x10^6/uL (3.50-5.40) Hemoglobin 13.7 g/dL (12.0-15.5) Hematocrit 41.8 % (36.0-47.0) Mean Corpuscular Volume 94 fL (79-100) Mean Corpuscular Hemoglobin 31 pg (25-35) Mean Corpuscular Hemoglobin Concent 33 g/dL (31-37) Red Cell Distribution Width 14.4 % (11.5-14.5) Platelet Count 95 x10^3/uL (140-400) Neutrophils (%) (Auto) 34 % (31-73) Lymphocytes (%) (Auto) 50 % (24-48) Monocytes (%) (Auto) 8 % (0-9) Eosinophils (%) (Auto) 7 % (0-3) Basophils (%) (Auto) 1 % (0-3) Neutrophils # (Auto) 1.4 x10^3uL (1.8-7.7) Lymphocytes # (Auto) 2.0 x10^3/uL (1.0-4.8) Monocytes # (Auto) 0.3 x10^3/uL (0.0-1.1) Eosinophils # (Auto) 0.3 x10^3/uL (0.0-0.7) Basophils # (Auto) 0.1 x10^3/uL (0.0-0.2) Sodium Level 143 mmol/L (136-145) Potassium Level 4.4 mmol/L (3.5-5.1) Chloride Level 110 mmol/L (98-107) Carbon Dioxide Level 28 mmol/L (21-32) Anion Gap 5 (6-14) Blood Urea Nitrogen 14 mg/dL (7-20) Creatinine 1.0 mg/dL (0.6-1.0) Estimated GFR (Cockcroft-Gault) 56.2 Glucose Level 97 mg/dL (70-99) Calcium Level 8.5 mg/dL (8.5-10.1) Medications Active Scripts Medications Dose Route/Sig Max Daily Dose Days Date Category Alprazolam 0.25 Mg Tablet 0.25 Mg PO PRN Q8HRS PRN 03/25/17 Rx Oxycodone Hcl 5 Mg Tablet 10 Mg PO PRN Q6HRS PRN 03/25/17 Rx Impression . NOTE DICTATED LEFT LUNG MASS OK TO D/C WILL PROCEED WITH WORK UP OUTPT OUT PET SCAN D/C SMOKING ROBERT ZAPATA MD Mar 27, 2017 16:26
[2017-03-27 19:30] VITALS: BP 160/76
--- NOTE | 2017-03-27 20:20 | CONS ---
DATE OF CONSULTATION: 03/27/2017 ATTENDING PHYSICIAN: Dr. Nelson. REASON FOR CONSULTATION: The patient seen in pulmonary consultation at the request of Dr. Nelson for abnormal CT of the abdomen. HISTORY OF PRESENT ILLNESS: The patient is a 62-year-old that presented with abdominal pain and chronic back pain. CT of the abdomen and pelvis was obtained revealing evidence of left lower lobe mass. I was asked to see her in consultation. The patient denies hemoptysis. She has had acute bronchitis approximately 2-3 times in a lifetime. She smokes and continues to do so. PAST MEDICAL HISTORY: Otherwise remarkable for hypertension, hepatitis C, pneumonia, COPD. PAST SURGICAL HISTORY: Back surgery, hysterectomy, appendectomy, tonsillectomy. FAMILY HISTORY: Unknown. She was adopted. SOCIAL HISTORY: She continues to smoke. REVIEW OF SYSTEMS: As indicated above, otherwise, a 10-point system was reviewed and negative. PHYSICAL EXAMINATION: GENERAL: The patient was in no respiratory distress. VITAL SIGNS: Stable. O2 saturation on room air was 92%. HEENT: Eyes: The sclerae were nonicteric. NECK: Jugular venous distention was not elevated. No lymphadenopathy. CHEST: Full expansion. LUNGS: Adequate airway flow with no wheezes. CARDIOVASCULAR: Regular rate and rhythm with S1, S2, no S3. ABDOMEN: Soft, nontender, nondistended. EXTREMITIES: No clubbing, cyanosis or edema. NEUROLOGIC: The patient was awake, alert, following commands. A detailed neuro exam was not performed. LABORATORY DATA: Reviewed. White count was normal. Hemoglobin and hematocrit were noted. Electrolytes were noted. Toxicology screen was positive for opiates. Serology for hep C was positive. IMPRESSION: 1. Abnormal CT of the abdomen and pelvis revealing left lower lobe mass. 2. Tobacco dependence. 3. Chronic obstructive pulmonary disease. 4. Abdominal pain. PLAN: 1. The patient will complete GI workup. 2. Follow up in the outpatient department to complete pulmonary workup. In the interim, I will be checking a CT of the chest. 3. Outpatient PET scanning. 4. The patient instructed on the importance of discontinuing tobacco use. 5. Discharge from pulmonary standpoint of view is okay. I will see the patient in the outpatient department. ORBERT ZAPATA MD DR: MARGO/sergey JOB#: [id number] / [id number]
[2017-03-27] MEDS: ENOXAPARIN 40 MG/0.4 ML SYRINGE. SQ SCH (21:00)
[2017-03-27 23:48] VITALS: BP 144/78
[2017-03-28] MEDS: oxyCODONE IR 5 MG TABLET PO PRN ×2 (01:41→08:46)
[2017-03-28] MEDS: ONDANSETRON PF 4 MG/2 ML VIAL. IV PRN (03:40)
[2017-03-28 03:58] VITALS: BP 114/57
[2017-03-28] MEDS: MORPHINE SULFATE 2 MG/ML DISP.SYRIN. IV PRN (04:50)
[2017-03-28 07:00] VITALS: BP 150/87
[2017-03-28] MEDS: PANTOPRAZOLE 40 MG TABLET.DR. PO SCH (08:46)
[2017-03-28] MEDS: ALPRAZolam 0.25 MG TABLET PO PRN (08:51)
[2017-03-28] MEDS ORDERED: MORPHINE SULFATE 4 MG/ML DISP.SYRIN. IV PRN (09:15)
[2017-03-28] MEDS ORDERED: oxyCODONE IR 5 MG TABLET PO ONE (09:45)
[2017-03-28] MEDS ORDERED: ASPIRIN 325 MG TABLET PO SCH (10:00)
--- NOTE | 2017-03-28 10:17 | PDOC ---
Subjective: Subjective: Back pain. Liver feels swollen. Wants to start Hep C treatment before she leaves. Not sure where viral load and genotype were established. Wants more pain meds. Objective: Vital Signs: Vital Signs Date Time Temp Pulse Resp B/P (MAP) Pulse Ox O2 Delivery O2 Flow Rate FiO2 03/28/17 09:58 94 Room Air 03/28/17 07:00 98.0 58 18 150/87 (108) 98.0 Imaging: EGD 03/27/17 E--No varices. <grade I reflux esophagitis at 40cm. G--No varices. 8mm ulcer anterior wall, antrum, biopsied. Few scattered erosions pre-pyloric area; biopsies re: H.pylori. D--Normal to second portion. IMP: Mild reflux, though likely cause of NCCP. , likely benign, biopsies pending. PE: GEN: NAD, drinking coffee LUNGS: diminished HEART: RRR ABD: S/ND/NT NEURO/PSYCH: A & O 3 A/P: LLL mass -per pulm, outpt workup planned Mild reflux, gastric ulcer -on PPI -path pending Hep C -thrombocytopenia, splenomegaly -no varices on EGD -LFTs elevated -genotype, viral load apparently checked previously - restricted tests here -- Continue PPI. Follow-up re: path. Follow-up as outpt re: Hep C treatment. JEANNE BLISS Mar 28, 2017 10:17
[2017-03-28 11:00] VITALS: BP 131/66
[2017-03-28] MEDS ORDERED: FUROSEMIDE 40 MG TABLET. PO SCH (11:00)
[2017-03-28] MEDS ORDERED: AMLO2.5T2 PO (11:59)
[2017-03-28] MEDS ORDERED: OXYC-328 PO (11:59)
[2017-03-28] MEDS ORDERED: OXYC10TA45 PO (11:59)
--- NOTE | 2017-03-28 12:08 | PDOC3 ---
Discharge Summary Visit Information Date of Admission: Mar 24, 2017 Date of Discharge: Mar 28, 2017 Admitting Diagnosis: back pain Final Diagnosis chest pain, 2/2 anxiety disorder htn h/o hep C no prior treatment severe anxiety, anxiety disorder nos chronic abd pain chronic back pain new left lung mass 3cm on CT, EGD showed 8mm gastric ulcer and mild reflux esophagitis, no varices Problems Medical Problems: (1) Chest pain Status: Acute Brief Hospital Course Allergies Allergies Coded Allergies Type Severity Reaction Last Updated Verified No Known Drug Allergies 03/27/17 No Vital Signs Vital Signs Date Time Temp Pulse Resp B/P (MAP) Pulse Ox O2 Delivery O2 Flow Rate FiO2 03/28/17 09:58 94 Room Air 03/28/17 07:00 98.0 58 18 150/87 (108) 98.0 Brief Hospital Course Ms. Herrera is a 62 old admitted for above problems much better, malingered for pain meds anxiety high, comprehension by patient very low f/u Dr. Coelho, [facility], Dr. Gavin to consider Hep C treatment, Dr. Herrmann to follow lung mass, she wants to see Shahzad ching for pain Discharge Information Condition at Discharge: Improved Follow Up: Weeks Disposition/Orders: D/C to Home Scheduled Amlodipine Besylate (Norvasc), 1 TAB PO DAILY Oxycodone Hcl (Oxycontin), 10 MG PO BID Scheduled PRN Alprazolam (Alprazolam), 0.25 MG PO PRN Q8HRS PRN for ANXIETY / AGITATION Oxycodone Hcl (Oxycodone Hcl), 10 MG PO PRN Q6HRS PRN for PAIN Oxycodone/Apap 10-325 (Percocet 10-325 Mg Tablet), 1 TAB PO QID PRN for PAIN Discontinued Medications Amoxicillin (Amoxicillin), 1 TAB PO BID Amoxicillin (Amoxicillin), 1 TAB PO BID Amoxicillin/Potassium Clav (Augmentin 875-125 Tablet), 1 TAB PO BID Amoxicillin/Potassium Clav (Augmentin 875-125 Tablet), 1 TAB PO BID Clindamycin Hcl (Clindamycin Hcl), 1 CAP PO TID Doxycycline Hyclate (Doxycycline Hyclate), 100 MG PO BID Hydrocodone/Apap 5-325 (Denniston 5-325 Tablet), 1 TAB PO PRN Q6HRS PRN for PAIN Hydrocodone/Apap 5-325 (Denniston 5-325 Tablet), 1-2 TAB PO Q4-6HRS Hydrocodone/Apap 5-325 (Denniston 5-325 Tablet), 1 TAB PO PRN Q6HRS PRN for PAIN Hydroxyzine Hcl (Hydroxyzine Hcl), 1 TAB PO Q4-6HRS PRN for RASH Prednisone (Prednisone), 1 TAB PO DAILY Prochlorperazine Maleate (Compazine), 10 MG PO Q8HRS PRN for NAUSEA Promethazine Hcl (Promethazine Hcl), 1 TAB PO Q6-8HRS Promethazine Hcl (Promethazine Hcl), 12.5 MG PO Q6H PRN for NAUSEA/VOMITING Promethazine Hcl (Promethazine Hcl), 1 TAB PO PRN Q6HRS Patient Instructions Patient Instructions >> 30 min LARA LOCK MD Mar 28, 2017 12:08
--- NOTE | 2017-03-28 12:29 | PDOC ---
PULMONARY PROGRESS NOTES Subjective PT WITH NO INCREASE SOA STILL IN PAIN Vitals Vital Signs Date Time Temp Pulse Resp B/P (MAP) Pulse Ox O2 Delivery O2 Flow Rate FiO2 03/28/17 09:58 94 Room Air 03/28/17 07:00 98.0 58 18 150/87 (108) 98.0 ROS: No Nausea, No Chest Pain, No Abdominal Pain, No Increase Cough Lungs: Clear Cardiovascular: S1, S2 Abdomen: Soft Neuro Exam: Alert Extremities: No Edema Skin: Warm Medications Active Scripts Medications Dose Route/Sig Max Daily Dose Days Date Category Alprazolam 0.25 Mg Tablet 0.25 Mg PO PRN Q8HRS PRN 03/25/17 Rx Oxycodone Hcl 5 Mg Tablet 10 Mg PO PRN Q6HRS PRN 03/25/17 Rx Impression . 1. Abnormal CT of the abdomen and pelvis revealing left lower lobe mass. 2. Tobacco dependence. 3. Chronic obstructive pulmonary disease. 4. Abdominal pain. Plan . 1. d/c when ok with GI 2. Follow up in office pt given my card, spoke with DR Norbert albrecht d/c and work up lung mass as outpt 3. Outpatient PET scanning. 4. The patient instructed on the importance of discontinuing tobacco use. ROBERT ZAPATA MD Mar 28, 2017 12:29
--- NOTE | 2017-03-28 13:52 | PATHOLOGY ---
PATHOLOGY REPORT * * * * * * * * FINAL DIAGNOSIS: A. Gastric biopsies, antrum: - Chronic gastritis, mild. B. Gastric biopsies, gastric ulcer: - Segments of gastric body mucosa showing superficial congestion, edema, and slight chronic and focal acute inflammation, and small segment of acute inflammatory exudate. COMMENT: Sections of the gastric antral biopsy reveal segments of gastric antral/body transition mucosa showing congestion and mild chronic inflammation. An immunoperoxidase stain for Helicobacter is obtained. No Helicobacter organisms are identified. Sections of the gastric ulcer biopsy reveal segments of gastric body mucosa showing superficial congestion, edema, and slight chronic and focal acute inflammation. There is also a small wispy segment of acute inflammatory exudate. An immunoperoxidase stain for Helicobacter is obtained. No Helicobacter organisms are identified. There is no evidence of malignancy. (JPM:mgr; 03/28/2017) Special Stain Performed: Immunoperoxidase stain for Helicobacter (A1, B1) REPORT ELECTRONICALLY SIGNED BY: Rasheed Godfrey M.D. DATE/TIME: 03/28/2017 13:52 * * * * * * * * GROSS PATHOLOGY: A. Received in formalin labeled "Brandon Herrera, antral BX," are 2 segments of mattson soft tissue measuring 1.1 x 0.2 x 0.3 cm in aggregate dimensions and ranging from 0.4 to 0.5 cm in maximum dimension. The specimen is submitted entirely in cassette A1. B. Received in formalin labeled "Brandon Herrera, BX gastric ulcer," are 2 segments of mattson soft tissue measuring 0.6 x 0.4 x 0.2 cm in aggregate dimensions and ranging from 0.3 to 0.3 cm in maximum dimension. The specimen is submitted entirely in cassette B1. (TSD; 03/27/2017) INITIAL CPT CODE(S): A; 00804, 61056 B; 78642, 25704 Professional services performed by [facility] at [facility] [address] [place] [id number] Technical services performed by [facility] at [address] [place] [address], [address], [place] [address]. SPECIMEN(S) RECEIVED: A.Antral biopsy B.Gastric ulcer biopsy CLINICAL HISTORY: Abdominal pain, antral erosions PATIENT: BRANDON HERRERA /AGE: [id number] 1955 (Age: 62) PATIENT #: [id number] ALT CASE #: SPECIMEN COLLECTION DATE: 03/27/2017 SPECIMEN RECEIVED DATE: 03/27/2017 [facility] - [id number] [place] [address] - PHONE: [phone] * * * END OF REPORT * * *
== END 2017-03-28 14:00 | disposition home or self-care (01) | DRG 383 ==
LOC: ER 15:25 → 2 SOUTH 17:43 → OBSVTOIN 18:28 → 4 NORTH 03-27 14:31
PROVIDERS: ADMIT Internal Medicine; ATTEND Internal Medicine
PROC: 0DB68ZX Excision of Stomach, Via Natural or Artificial Opening Endoscopic, Diagnostic (ICD-10-PCS; principal; 2017-03-27 15:00)
DX: K25.9 Gastric ulcer, unspecified as acute or chronic, without hemorrhage or perforation (principal); N17.0 Acute kidney failure with tubular necrosis; K74.60 Unspecified cirrhosis of liver; N18.3 Chronic kidney disease, stage 3 (moderate); D69.6 Thrombocytopenia, unspecified; E44.0 Moderate protein-calorie malnutrition; R07.9 Chest pain, unspecified; F41.9 Anxiety disorder, unspecified; R10.11 Right upper quadrant pain; I12.9 Hypertensive chronic kidney disease with stage 1 through stage 4 chronic kidney disease, or unspecified chronic kidney disease; K21.0 Gastro-esophageal reflux disease with esophagitis; B19.20 Unspecified viral hepatitis C without hepatic coma; F17.210 Nicotine dependence, cigarettes, uncomplicated; G89.29 Other chronic pain; R12 Heartburn; I35.1 Nonrheumatic aortic (valve) insufficiency; J44.9 Chronic obstructive pulmonary disease, unspecified; Z68.29 Body mass index [BMI] 29.0-29.9, adult; Z87.01 Personal history of pneumonia (recurrent); Z90.49 Acquired absence of other specified parts of digestive tract; Z90.710 Acquired absence of both cervix and uterus; Z82.49 Family history of ischemic heart disease and other diseases of the circulatory system
CPT/HCPCS: 36415; 71010; 71250; 74177; 76700; 78226; 80048; 80061; 80074; 80076; 80307; 82553; 83690; 83880; 84443; 84484; 85025; 88305; 88342; 90686; 90732; 93005; 93306; 96374; 96375; A9537; G0379; J2270; J2405; J2704; J2805; J3010; J7120; Q9966; Q9967; 99285-25; G0479

== ENCOUNTER 2017-07-13 19:43 | Emergency (ER) | payer OTHER | END 2017-07-13 21:13 | disposition home or self-care (01) | LOC: ER 19:43 | DX: L24.0 Irritant contact dermatitis due to detergents (principal); G89.29 Other chronic pain; Z90.49 Acquired absence of other specified parts of digestive tract; Z90.710 Acquired absence of both cervix and uterus; Z87.01 Personal history of pneumonia (recurrent) | CPT/HCPCS: 99283 ==

== ENCOUNTER 2017-10-05 14:50 | Emergency (ER) | payer OTHER | END 2017-10-05 15:53 | disposition home or self-care (01) | LOC: ER 14:50 | DX: K08.89 Other specified disorders of teeth and supporting structures (principal); G89.29 Other chronic pain | CPT/HCPCS: 99283 ==

== ENCOUNTER 2017-10-09 19:40 | Emergency (ER) | payer OTHER ==
[2017-10-09] MEDS: oxyCODONE/APAP 10/325 1 TAB TABLET PO (20:30)
== END 2017-10-09 20:42 | disposition home or self-care (01) ==
LOC: ER 19:40
DX: G89.29 Other chronic pain (principal); M54.89 Other dorsalgia; Z90.710 Acquired absence of both cervix and uterus; Z90.49 Acquired absence of other specified parts of digestive tract
CPT/HCPCS: 99281

== ENCOUNTER 2017-12-01 15:56 | Emergency (ER) | payer OTHER ==
[2017-12-01] MEDS: ALPRAZolam 0.5 MG TABLET PO (17:04)
== END 2017-12-01 17:37 | disposition home or self-care (01) ==
LOC: ER 15:56
DX: S70.02XA Contusion of left hip, initial encounter (principal); G89.29 Other chronic pain; X58.XXXA Exposure to other specified factors, initial encounter; Y93.89 Activity, other specified; Y99.8 Other external cause status; Y92.89 Other specified places as the place of occurrence of the external cause
CPT/HCPCS: 73502; 73552; 99284

== ENCOUNTER 2017-12-10 21:55 | Inpatient (IN) | payer OTHER ==
[2017-12-10 23:35] LABS: ADD MAN DIFF? NO
[2017-12-10] MEDS: IV NORMAL SALINE 1000ML BAG 1,000 ML IV (23:36)
[2017-12-10 23:37] LABS: BASO % 1 % (0-3); EOS # 0.4 x10^3/uL (0.0-0.7); EOS % 7 % (0-3); HEMATOCRIT 40.4 % (36.0-47.0); HEMOGLOBIN 13.9 g/dL (12.0-15.5); LYMPH # 1.5 x10^3/uL (1.0-4.8); LYMPH % 25 % (24-48); MEAN CORPUSCULAR HEMOGLOBIN 31 pg (25-35); MEAN CORPUSCULAR HGB CONC 34 g/dL (31-37); MEAN CORPUSCULAR VOLUME 91 fL (79-100); MONO # 0.4 x10^3/uL (0.0-1.1); MONO % 7 % (0-9); NEUT # 3.7 x10^3uL (1.8-7.7); NEUT % 61 % (31-73); PLATELET COUNT 112 x10^3/uL (140-400); RED BLOOD COUNT 4.44 x10^6/uL (3.50-5.40); RED CELL DISTRIBUTION WIDTH 13.5 % (11.5-14.5); WHITE BLOOD COUNT 6.1 x10^3/uL (4.0-11.0)
[2017-12-10] MEDS: MORPHINE SULFATE 10 MG/ML VIAL. IV (23:37)
[2017-12-10 23:49] LABS: ANION GAP 10 (6-14); BLOOD UREA NITROGEN 10 mg/dL (7-20); CALCIUM 8.4 mg/dL (8.5-10.1); CARBON DIOXIDE 27 mmol/L (21-32); CHLORIDE 107 mmol/L (98-107); GFR 56.2; GLUCOSE 80 mg/dL (70-99); POTASSIUM 3.1 mmol/L (3.5-5.1); SODIUM 144 mmol/L (136-145)
[2017-12-10 23:51] LABS: C-REACTIVE PROTEIN 6.6 mg/L (0-3.3)
[2017-12-11 00:40] LABS: SEDIMENTATION RATE 8 (0-25)
[2017-12-11] MEDS: MORPHINE SULFATE 4 MG/ML DISP.SYRIN. IV ×6 (02:47→22:55)
[2017-12-11] MEDS: IV NORMAL SALINE 1000ML BAG 1,000 ML IV ×2 (03:30→17:35)
[2017-12-11] MEDS: oxyCODONE IR 5 MG TABLET PO ×2 (03:41→07:35)
[2017-12-11] MEDS: ONDANSETRON PF 4 MG/2 ML VIAL. IV (08:23)
[2017-12-11] MEDS ORDERED: IV RINGERS,LACTATED 1000ML 1,000 ML IV ×2 (08:51→10:35)
[2017-12-11] MEDS ORDERED: LIDOCAINE 1% PF 2 ML VIAL. ID ×2 (09:00→10:45)
[2017-12-11] MEDS ORDERED: fentaNYL PF VIAL 100 MCG/2 ML VIAL IV ×2 (09:00→10:45)
[2017-12-11] MEDS ORDERED: ONDANSETRON PF 4 MG/2 ML VIAL. IV (09:00)
[2017-12-11] MEDS ORDERED: MORPHINE SULFATE 2 MG/ML DISP.SYRIN. IV (09:00)
[2017-12-11] MEDS ORDERED: LIDOCAINE 1% PF 30 ML VIAL. (09:32)
[2017-12-11] MEDS ORDERED: BUPIVACAINE 0.5% 50 ML VIAL. (09:32)
[2017-12-11] MEDS ORDERED: ceFAZolin 2GM PREMIX 2 GM/50 ML BAG IV (11:00)
[2017-12-11] MEDS ORDERED: ePHEDrine PF IN SALINE 50 MG/5 ML DISP.SYRIN IV (11:30)
[2017-12-11] MEDS ORDERED: PHENYLEPHRINE in 0.9% NACL PF 1 MG/10 ML SYRINGE. IV (11:36)
[2017-12-11] MEDS: MORPHINE SULFATE 5 MG, KETOROLAC 30 MG, ROPIVacaine 0.5% PF 60 ML, EPINEPHrine 0.5 MG i... INT ART (11:50)
[2017-12-11] MEDS ORDERED: MORPHINE SULFATE 10 MG/ML VIAL. (11:58)
[2017-12-11] MEDS ORDERED: DEXAMETHASONE SOD PHOS 20 MG/5 ML VIAL. (12:02)
[2017-12-11] MEDS ORDERED: ONDANSETRON PF 4 MG/2 ML VIAL. (12:02)
[2017-12-11] MEDS ORDERED: LIDOCAINE 2% PF Vial for OR 5 ML VIAL. (12:12)
[2017-12-11] MEDS ORDERED: fentaNYL PF VIAL 250 MCG/5 ML VIAL (12:12)
[2017-12-11] MEDS ORDERED: ROCURONIUM 50 MG/5 ML VIAL. (12:12)
[2017-12-11] MEDS ORDERED: PROPOFOL 20 ML IV (12:12)
[2017-12-11] MEDS ORDERED: GLYCOPYRROLATE 1 MG/5 ML VIAL. (12:42)
[2017-12-11] MEDS ORDERED: NEOSTIGMINE METHYLSULFATE 5 MG/5 ML SYRINGE. (12:42)
[2017-12-11] MEDS ORDERED: fentaNYL PF VIAL 100 MCG/2 ML VIAL (12:53)
[2017-12-11] MEDS ORDERED: PROCHLORPERAZINE 10 MG/2 ML VIAL. (12:54)
[2017-12-11] MEDS: MIDAZOLAM HCL/PF 2 MG/2 ML VIAL. IV (13:15)
[2017-12-11] MEDS: PROCHLORPERAZINE 10 MG/2 ML VIAL. IV ×2 (13:15→13:43)
[2017-12-11] MEDS: fentaNYL PF VIAL 100 MCG/2 ML VIAL IV ×3 (13:18→13:59)
[2017-12-11] MEDS: RIVAROXABAN 10 MG TABLET. PO (17:45)
[2017-12-11 22:16] LABS: MRSA BY PCR Negative (Negative)
[2017-12-12] MEDS: oxyCODONE IR 5 MG TABLET PO ×5 (00:04→23:03)
[2017-12-12] MEDS: MORPHINE SULFATE 4 MG/ML DISP.SYRIN. IV ×4 (02:31→20:12)
[2017-12-12 08:45] LABS: ADD MAN DIFF? NO
[2017-12-12 08:52] LABS: BASO % 0 % (0-3); EOS # 0.1 x10^3/uL (0.0-0.7); EOS % 1 % (0-3); HEMOGLOBIN 11.6 g/dL (12.0-15.5); LYMPH # 2.1 x10^3/uL (1.0-4.8); LYMPH % 24 % (24-48); MEAN CORPUSCULAR HEMOGLOBIN 31 pg (25-35); MEAN CORPUSCULAR HGB CONC 34 g/dL (31-37); MEAN CORPUSCULAR VOLUME 92 fL (79-100); MONO # 0.7 x10^3/uL (0.0-1.1); MONO % 7 % (0-9); NEUT # 6.1 x10^3uL (1.8-7.7); NEUT % 68 % (31-73); PLATELET COUNT 102 x10^3/uL (140-400); RED BLOOD COUNT 3.72 x10^6/uL (3.50-5.40); RED CELL DISTRIBUTION WIDTH 13.4 % (11.5-14.5)
[2017-12-12 09:16] LABS: ALBUMIN/GLOBULIN RATIO 0.6 (1.0-1.7); ALK PHOS 115 U/L (46-116); ALT (SGPT) 32 U/L (14-59); ANION GAP 8 (6-14); AST (SGOT) 36 U/L (15-37); BLOOD UREA NITROGEN 14 mg/dL (7-20); BUN/CREATININE RATIO 14 (6-20); CALCIUM 7.6 mg/dL (8.5-10.1); CARBON DIOXIDE 25 mmol/L (21-32); CHLORIDE 107 mmol/L (98-107); GFR 56.2; GLUCOSE 144 mg/dL (70-99); SODIUM 140 mmol/L (136-145); TOTAL BILIRUBIN 0.5 mg/dL (0.2-1.0); TOTAL PROTEIN 5.4 g/dL (6.4-8.2)
[2017-12-12 09:20] LABS: POTASSIUM 2.8 mmol/L (3.5-5.1)
[2017-12-12] MEDS: POTASSIUM CHLORIDE 20 MEQ TABLET.ER. PO (10:54)
[2017-12-12] MEDS: ANTI-COAG MONITOR BY PHARMACY. MC ×2 (12:49→13:50)
[2017-12-12] MEDS: CYCLOBENZAPRINE 10 MG TABLET. PO ×2 (12:56→20:46)
[2017-12-12] MEDS: RIVAROXABAN 10 MG TABLET. PO (16:46)
[2017-12-13] MEDS: MORPHINE SULFATE 4 MG/ML DISP.SYRIN. IV ×3 (01:23→20:57)
[2017-12-13] MEDS: CYCLOBENZAPRINE 10 MG TABLET. PO ×4 (03:45→23:44)
[2017-12-13] MEDS: oxyCODONE IR 5 MG TABLET PO ×4 (08:10→23:44)
[2017-12-13] MEDS: ONDANSETRON PF 4 MG/2 ML VIAL. IV ×2 (09:42→19:54)
[2017-12-13] MEDS: POTASSIUM CHLORIDE 20 MEQ TABLET.ER. PO (15:42)
[2017-12-13] MEDS: RIVAROXABAN 10 MG TABLET. PO (17:26)
[2017-12-14] MEDS: MORPHINE SULFATE 4 MG/ML DISP.SYRIN. IV ×4 (02:23→20:38)
[2017-12-14] MEDS: oxyCODONE IR 5 MG TABLET PO ×4 (04:40→20:38)
[2017-12-14] MEDS: CYCLOBENZAPRINE 10 MG TABLET. PO ×3 (05:51→21:40)
[2017-12-14 06:02] LABS: ADD MAN DIFF? NO
[2017-12-14 06:04] LABS: BASO % 1 % (0-3); EOS # 0.4 x10^3/uL (0.0-0.7); EOS % 5 % (0-3); HEMATOCRIT 35.7 % (36.0-47.0); HEMOGLOBIN 12.2 g/dL (12.0-15.5); LYMPH # 2.2 x10^3/uL (1.0-4.8); LYMPH % 29 % (24-48); MEAN CORPUSCULAR HEMOGLOBIN 31 pg (25-35); MEAN CORPUSCULAR HGB CONC 34 g/dL (31-37); MEAN CORPUSCULAR VOLUME 92 fL (79-100); MONO # 0.6 x10^3/uL (0.0-1.1); MONO % 8 % (0-9); NEUT # 4.5 x10^3uL (1.8-7.7); NEUT % 58 % (31-73); PLATELET COUNT 108 x10^3/uL (140-400); RED CELL DISTRIBUTION WIDTH 13.2 % (11.5-14.5); WHITE BLOOD COUNT 7.8 x10^3/uL (4.0-11.0)
[2017-12-14] MEDS: ONDANSETRON PF 4 MG/2 ML VIAL. IV (06:13)
[2017-12-14 06:19] LABS: ANION GAP 4 (6-14); BLOOD UREA NITROGEN 10 mg/dL (7-20); CARBON DIOXIDE 28 mmol/L (21-32); CHLORIDE 107 mmol/L (98-107); CREATININE 0.7 mg/dL (0.6-1.0); GFR 84.8; GLUCOSE 105 mg/dL (70-99); POTASSIUM 3.7 mmol/L (3.5-5.1); SODIUM 139 mmol/L (136-145)
[2017-12-14] MEDS: POTASSIUM CHLORIDE 20 MEQ TABLET.ER. PO (08:58)
[2017-12-14] MEDS ORDERED: ONDANSETRON ODT 4 MG TAB.RAPDIS. PO (09:15)
[2017-12-14] MEDS ORDERED: NON FORMULARY ITEM (Albuterol Sulfate (Proair Hfa Inhaler) 1 PUFF) INH (09:15)
[2017-12-14] MEDS ORDERED: ALBUTEROL SULFATE 2.5 MG/3 ML NEBU. NEB (09:30)
[2017-12-14] MEDS: PANTOPRAZOLE 40 MG TABLET.DR. PO (09:43)
[2017-12-14] MEDS: FLUoxetine HCL 10 MG CAPSULE PO (09:56)
[2017-12-14] MEDS: amLODIPine BESYLATE 5 MG TABLET PO (10:00)
[2017-12-14] MEDS: IBUPROFEN 600 MG TABLET. PO (10:03)
[2017-12-14] MEDS: ANTI-COAG MONITOR BY PHARMACY. MC (11:50)
[2017-12-14] MEDS: RIVAROXABAN 10 MG TABLET. PO (16:03)
[2017-12-14] MEDS: ZOLPIDEM 5 MG TABLET. PO (20:38)
[2017-12-15] MEDS: oxyCODONE IR 5 MG TABLET PO ×5 (00:58→22:24)
[2017-12-15] MEDS: IBUPROFEN 600 MG TABLET. PO (03:24)
[2017-12-15] MEDS: MORPHINE SULFATE 4 MG/ML DISP.SYRIN. IV ×5 (03:24→23:05)
[2017-12-15] MEDS: CYCLOBENZAPRINE 10 MG TABLET. PO ×3 (04:34→20:00)
[2017-12-15] MEDS: PANTOPRAZOLE 40 MG TABLET.DR. PO (05:46)
[2017-12-15] MEDS: amLODIPine BESYLATE 5 MG TABLET PO (09:00)
[2017-12-15] MEDS: POTASSIUM CHLORIDE 20 MEQ TABLET.ER. PO (09:00)
[2017-12-15] MEDS: FLUoxetine HCL 10 MG CAPSULE PO (09:01)
[2017-12-15] MEDS: ANTI-COAG MONITOR BY PHARMACY. MC (11:48)
[2017-12-15] MEDS: FUROSEMIDE 40 MG TABLET. PO (15:00)
[2017-12-15] MEDS: ALPRAZolam 1 MG TABLET PO ×2 (15:33→23:38)
[2017-12-15] MEDS: RIVAROXABAN 10 MG TABLET. PO (18:11)
[2017-12-15] MEDS: ZOLPIDEM 5 MG TABLET. PO (23:38)
[2017-12-16] MEDS: MORPHINE SULFATE 4 MG/ML DISP.SYRIN. IV ×4 (02:20→19:10)
[2017-12-16] MEDS: oxyCODONE IR 5 MG TABLET PO ×3 (05:54→19:11)
[2017-12-16] MEDS: PANTOPRAZOLE 40 MG TABLET.DR. PO (05:54)
[2017-12-16] MEDS: CYCLOBENZAPRINE 10 MG TABLET. PO ×3 (05:54→22:15)
[2017-12-16] MEDS: FLUoxetine HCL 10 MG CAPSULE PO (08:18)
[2017-12-16] MEDS: ALPRAZolam 1 MG TABLET PO ×2 (08:19→18:17)
[2017-12-16] MEDS: POTASSIUM CHLORIDE 20 MEQ TABLET.ER. PO (08:19)
[2017-12-16] MEDS: amLODIPine BESYLATE 5 MG TABLET PO (09:00)
[2017-12-16] MEDS: ANTI-COAG MONITOR BY PHARMACY. MC (12:33)
[2017-12-16] MEDS: FUROSEMIDE 40 MG TABLET. PO (13:41)
[2017-12-16] MEDS: RIVAROXABAN 10 MG TABLET. PO (18:17)
[2017-12-16] MEDS: ZOLPIDEM 5 MG TABLET. PO (22:15)
[2017-12-17] MEDS: oxyCODONE IR 5 MG TABLET PO ×2 (02:30→10:39)
[2017-12-17] MEDS: MORPHINE SULFATE 4 MG/ML DISP.SYRIN. IV ×4 (02:30→13:30)
[2017-12-17] MEDS: PANTOPRAZOLE 40 MG TABLET.DR. PO (06:19)
[2017-12-17] MEDS: CYCLOBENZAPRINE 10 MG TABLET. PO ×2 (06:20→22:16)
[2017-12-17] MEDS: amLODIPine BESYLATE 5 MG TABLET PO (09:00)
[2017-12-17] MEDS: ALPRAZolam 0.5 MG TABLET PO (09:11)
[2017-12-17] MEDS: FLUoxetine HCL 10 MG CAPSULE PO (09:11)
[2017-12-17] MEDS: FUROSEMIDE 40 MG TABLET. PO (09:12)
[2017-12-17] MEDS: POTASSIUM CHLORIDE 20 MEQ TABLET.ER. PO (10:30)
[2017-12-17] MEDS: ANTI-COAG MONITOR BY PHARMACY. MC (13:03)
[2017-12-17] MEDS: SODIUM PHOSPHATES 19/7GM 133 ML ENEMA. PR (16:15)
[2017-12-17] MEDS: BISACODYL 10 MG SUPP.RECT. PR (16:28)
[2017-12-17] MEDS: oxyCODONE/APAP 10/325 1 TAB TABLET PO ×2 (16:28→22:16)
[2017-12-17] MEDS: RIVAROXABAN 10 MG TABLET. PO (16:28)
[2017-12-17] MEDS: ZOLPIDEM 5 MG TABLET. PO (22:16)
[2017-12-18] MEDS: oxyCODONE IR 5 MG TABLET PO ×2 (01:11→08:31)
[2017-12-18 04:27] LABS: ADD MAN DIFF? NO
[2017-12-18 04:48] LABS: BASO % 1 % (0-3); EOS # 0.3 x10^3/uL (0.0-0.7); EOS % 6 % (0-3); HEMATOCRIT 34.6 % (36.0-47.0); HEMOGLOBIN 11.7 g/dL (12.0-15.5); LYMPH # 1.4 x10^3/uL (1.0-4.8); LYMPH % 27 % (24-48); MEAN CORPUSCULAR HEMOGLOBIN 31 pg (25-35); MEAN CORPUSCULAR HGB CONC 34 g/dL (31-37); MEAN CORPUSCULAR VOLUME 92 fL (79-100); MONO # 0.5 x10^3/uL (0.0-1.1); MONO % 10 % (0-9); NEUT # 3.1 x10^3uL (1.8-7.7); NEUT % 57 % (31-73); PLATELET COUNT 136 x10^3/uL (140-400); RED BLOOD COUNT 3.77 x10^6/uL (3.50-5.40); WHITE BLOOD COUNT 5.4 x10^3/uL (4.0-11.0)
[2017-12-18 04:50] LABS: ANION GAP 2 (6-14); BLOOD UREA NITROGEN 9 mg/dL (7-20); CALCIUM 8.1 mg/dL (8.5-10.1); CARBON DIOXIDE 31 mmol/L (21-32); CHLORIDE 105 mmol/L (98-107); CREATININE 0.8 mg/dL (0.6-1.0); GFR 72.7; GLUCOSE 129 mg/dL (70-99); POTASSIUM 3.4 mmol/L (3.5-5.1); SODIUM 138 mmol/L (136-145)
[2017-12-18] MEDS: oxyCODONE/APAP 10/325 1 TAB TABLET PO ×3 (04:51→13:33)
[2017-12-18] MEDS: POTASSIUM CHLORIDE 20 MEQ TABLET.ER. PO ×2 (08:29→12:35)
[2017-12-18] MEDS: FLUoxetine HCL 10 MG CAPSULE PO (08:29)
[2017-12-18] MEDS: PANTOPRAZOLE 40 MG TABLET.DR. PO (08:29)
[2017-12-18] MEDS: amLODIPine BESYLATE 5 MG TABLET PO (08:30)
[2017-12-18] MEDS: FUROSEMIDE 40 MG TABLET. PO (08:30)
[2017-12-18] MEDS: ALPRAZolam 0.5 MG TABLET PO ×2 (09:53→10:18)
[2017-12-18] MEDS: CYCLOBENZAPRINE 10 MG TABLET. PO (10:17)
== END 2017-12-18 14:45 | DRG 480 ==
LOC: 4 NORTH 12-11 02:15 → ER 21:55
PROC: 0QS736Z Reposition Left Upper Femur with Intramedullary Internal Fixation Device, Percutaneous Approach (ICD-10-PCS; principal; 2017-12-11 11:00)
DX: S72.25XA Nondisplaced subtrochanteric fracture of left femur, initial encounter for closed fracture (principal); G93.40 Encephalopathy, unspecified; E43 Unspecified severe protein-calorie malnutrition; C34.32 Malignant neoplasm of lower lobe, left bronchus or lung; F11.20 Opioid dependence, uncomplicated; K74.60 Unspecified cirrhosis of liver; G89.29 Other chronic pain; F41.9 Anxiety disorder, unspecified; E87.6 Hypokalemia; W01.0XXA Fall on same level from slipping, tripping and stumbling without subsequent striking against object, initial encounter; M54.9 Dorsalgia, unspecified; J44.9 Chronic obstructive pulmonary disease, unspecified; Z85.118 Personal history of other malignant neoplasm of bronchus and lung; Z90.710 Acquired absence of both cervix and uterus; Z82.5 Family history of asthma and other chronic lower respiratory diseases; Z82.49 Family history of ischemic heart disease and other diseases of the circulatory system; Z87.891 Personal history of nicotine dependence; Z90.49 Acquired absence of other specified parts of digestive tract; Y93.89 Activity, other specified; Y92.89 Other specified places as the place of occurrence of the external cause; Y99.8 Other external cause status
CPT/HCPCS: 36415; 73502; 74176; 76000; 80048; 80053; 82306; 85025; 85651; 86140; 87641; 96374; 97110-GP; 97116-GP; 97162-GP; 97166-GO; 97530-GO; 97530-GP; 97535-GO; 99285; 99285-25; A7015; C1713; C1887; J0171; J0690; J0780; J1100; J1885; J2001; J2060; J2250; J2270; J2370; J2405; J2704; J2710; J2795; J3010; J3490; J7030; J7120

== ENCOUNTER 2018-02-28 17:43 | Inpatient (IN) | payer OTHER ==
[2018-02-28] VITALS (7 sets, daily range): BP systolic 118–156; BP diastolic 67–93
[~2018-02-28] VITALS: Ht 165.1 cm; Wt 60.1 kg
[~2018-02-28 17:43] MED LIST changes: +ALPR0.254 PO; +AMLO2.5T2 PO; +AMLO5TAB7 PO; +FLUO10CA13 PO; +FLUO10CA7 PO; +FURO-68 PO; +IBUP-1007 PO; +IBUP-1060 PO; +METH4TAB2 PO; +MORP30TA83 PO; +OMEP20TA63 PO; +ONDA4TAB12 PO; +OXYC-328 PO; +OXYC10TA45 PO; +OXYC5TAB95 PO; +PROAIR HFA8.5 GM INH; +ZOLP5TAB PO
[2018-02-28] MEDS ORDERED: IV NORMAL SALINE 1000ML BAG 1,000 ML IV ONE ×2 (18:15→19:00)
[2018-02-28 18:18] LABS: BASO % 0 % (0-3); EOS # 0.4 x10^3/uL (0.0-0.7); EOS % 4 % (0-3); HEMATOCRIT 43.6 % (36.0-47.0); HEMOGLOBIN 14.7 g/dL (12.0-15.5); LYMPH # 1.7 x10^3/uL (1.0-4.8); LYMPH % 15 % (24-48); MEAN CORPUSCULAR HEMOGLOBIN 30 pg (25-35); MEAN CORPUSCULAR HGB CONC 34 g/dL (31-37); MEAN CORPUSCULAR VOLUME 89 fL (79-100); MONO # 0.8 x10^3/uL (0.0-1.1); MONO % 7 % (0-9); NEUT % 75 % (31-73); PLATELET COUNT 188 x10^3/uL (140-400); RED BLOOD COUNT 4.91 x10^6/uL (3.50-5.40); RED CELL DISTRIBUTION WIDTH 13.6 % (11.5-14.5)
[2018-02-28 18:19] LABS: BILIRUBIN,URINE LARGE (NEG); CLARITY,URINE CLEAR; COLOR,URINE ORANGE; NITRITE,URINE NEGATIVE (NEG); PROTEIN,URINE 30 mg/dL (NEG-TRACE)
--- NOTE | 2018-02-28 18:22 | PHYS DOC ---
Past Medical History Past Medical History: Cancer, Hepatitis, Pneumonia, Sciatica Additional Past Medical Histor: CIRRHOSIS, CHRONIC BACK/ABD. PAIN, hep c Past Surgical History: Appendectomy, , Oophorectomy, Tonsillectomy Additional Past Surgical Histo: low back sx Alcohol Use: None Drug Use: None Adult General Chief Complaint Chief Complaint: ALTERED MENTAL STATUS HPI HPI Patient is a 63 year old female with history of lung cancer, COPD, hepatitis, who presents to the ED today from home to be evaluated for altered mental status change. Patient herself is not able to give us any history. Per the report I'm getting from nursing staff they state EMS informed them this patient was in her own apartment and was calling out for help, the neighbors went and called EMS to bring her to the hospital. She was discharged from the hospital around December after hip fracture with intertrochanteric nailing. Patient is a very poor historian. Currently not able to tell us what's going on. Review of Systems Review of Systems Constitutional: LOTUS HENT:LOTUS Respiratory: LOTUS Cardiovascular: LOTUS GI: LOTUS : LOTUS Musculoskeletal: LOTUS Integument: LOTUS Neurologic: AMS. All other systems were reviewed and found to be within normal limits, except as documented in this note. Current Medications Current Medications Current Medications Medications (Trade) Dose Ordered Sig/Amanda Start Time Stop Time Status Last Admin Dose Admin Ceftriaxone Sodium 50 ml @ 100 mls/hr 1X ONCE 02/28/18 19:00 02/28/18 19:29 DC 02/28/18 19:00 100 MLS/HR Haloperidol Lactate (Haldol Inj) 2.5 mg 1X ONCE 02/28/18 19:45 02/28/18 19:46 DC 02/28/18 19:45 2.5 MG Potassium Chloride/Sodium Chloride 1,000 ml @ 75 mls/hr 1X ONCE 02/28/18 19:15 03/01/18 08:34 02/28/18 22:17 75 MLS/HR Sodium Chloride 1,000 ml @ 1,000 mls/hr 1X ONCE 02/28/18 19:00 02/28/18 19:59 DC 02/28/18 19:12 1,000 MLS/HR Allergies Allergies Allergies Coded Allergies Type Severity Reaction Last Updated Verified No Known Drug Allergies 12/11/17 No Physical Exam Physical Exam Constitutional: Well developed, ill appearing HEENT: Normocephalic, atraumatic, bilateral external ears normal, oropharynx moist, no oral exudates, nose normal. Very poor oral hygiene Eyes: PERRLA, EOMI, conjunctiva normal, no discharge. [] Neck: Normal range of motion, no tenderness, supple, no stridor. [] Cardiovascular:Heart rate regular rhythm, no murmur [] Lungs & Thorax: Bilateral breath sounds clear to auscultation [] Abdomen: Bowel sounds normal, soft, no tenderness, no masses, no pulsatile masses. [] Skin: Warm, dry, no erythema, no rash. [] Back: No tenderness, no CVA tenderness. [] Extremities: Left lateral proximal hip with a well approximated laceration site from her previous hip surgery in December. No signs of infection to the area. No tenderness over the area. Left knee with small amount of soft tissue swelling as well as bruising. Full passive range of motion to the left lower extremity including hip and knee. +2 left pedal pulses. Neurologic: Patient is confused, awake alert and oriented 1, normal motor function, normal sensory function, no focal deficits noted. [] Psychologic: unable to access Current Patient Data Vital Signs Vital Signs Date Time Temp Pulse Resp B/P (MAP) Pulse Ox O2 Delivery O2 Flow Rate FiO2 02/28/18 17:46 98.4 121 24 144/69 (94) 99 Room Air 98.4 Lab Values Laboratory Tests Test 02/28/18 17:53 02/28/18 18:00 Urine Collection Type U cath Urine Color [place] Urine Clarity Clear Urine pH 6.0 Urine Specific [place] 1.025 Urine Protein 30 mg/dL (NEG-TRACE) Urine Glucose (UA) Negative mg/dL (NEG) Urine Ketones (Stick) 40 mg/dL (NEG) Urine Blood Negative (NEG) Urine Nitrite Negative (NEG) Urine Bilirubin Large (NEG) Urine Urobilinogen Dipstick 4.0 mg/dL (0.2 mg/dL) Urine Leukocyte Esterase Large (NEG) Urine RBC 0 /HPF (0-2) Urine WBC >40 /HPF (0-4) Urine Squamous Epithelial Cells Occ /LPF Urine Bacteria Many /HPF (0-FEW) Urine Opiates Screen Pos (NEG) Urine Methadone Screen Neg (NEG) Urine Barbiturates Neg (NEG) Urine Phencyclidine Screen Neg (NEG) Urine Amphetamine/Methamphetamine Neg (NEG) Urine Benzodiazepines Screen Neg (NEG) Urine Cocaine Screen Neg (NEG) Urine Cannabinoids Screen Neg (NEG) Urine Ethyl Alcohol Neg (NEG) White Blood Count 12.0 x10^3/uL (4.0-11.0) H Red Blood Count 4.91 x10^6/uL (3.50-5.40) Hemoglobin 14.7 g/dL (12.0-15.5) Hematocrit 43.6 % (36.0-47.0) Mean Corpuscular Volume 89 fL (79-100) Mean Corpuscular Hemoglobin 30 pg (25-35) Mean Corpuscular Hemoglobin Concent 34 g/dL (31-37) Red Cell Distribution Width 13.6 % (11.5-14.5) Platelet Count 188 x10^3/uL (140-400) Neutrophils (%) (Auto) 75 % (31-73) H Lymphocytes (%) (Auto) 15 % (24-48) L Monocytes (%) (Auto) 7 % (0-9) Eosinophils (%) (Auto) 4 % (0-3) H Basophils (%) (Auto) 0 % (0-3) Neutrophils # (Auto) 9.0 x10^3uL (1.8-7.7) H Lymphocytes # (Auto) 1.7 x10^3/uL (1.0-4.8) Monocytes # (Auto) 0.8 x10^3/uL (0.0-1.1) Eosinophils # (Auto) 0.4 x10^3/uL (0.0-0.7) Basophils # (Auto) 0.0 x10^3/uL (0.0-0.2) Prothrombin Time 16.6 SEC (11.7-14.0) H Prothrombin Time INR 1.4 (0.8-1.1) H Sodium Level 142 mmol/L (136-145) Potassium Level 2.9 mmol/L (3.5-5.1) *L Chloride Level 105 mmol/L (98-107) Carbon Dioxide Level 21 mmol/L (21-32) Anion Gap 16 (6-14) H Blood Urea Nitrogen 20 mg/dL (7-20) Creatinine 0.8 mg/dL (0.6-1.0) Estimated GFR (Cockcroft-Gault) 72.4 BUN/Creatinine Ratio 25 (6-20) H Glucose Level 107 mg/dL (70-99) H Lactic Acid Level 2.1 mmol/L (0.4-2.0) H Calcium Level 8.6 mg/dL (8.5-10.1) Magnesium Level 2.0 mg/dL (1.8-2.4) Total Bilirubin 1.9 mg/dL (0.2-1.0) H Aspartate Amino Transferase (AST) 34 U/L (15-37) Alanine Aminotransferase (ALT) 31 U/L (14-59) Alkaline Phosphatase 200 U/L (46-116) H Ammonia 32 mcmol/L (11-34) Creatine Kinase 164 U/L (26-192) Creatine Kinase MB (Mass) 1.0 ng/mL (0.0-3.6) Creatine Kinase MB Relative Index 0.6 % (0-4) Troponin I Quantitative < 0.017 ng/mL (0.000-0.055) NJ-Qay-Z-Type Natriuretic Peptide 90 pg/mL (0-124) Total Protein 7.4 g/dL (6.4-8.2) Albumin 2.9 g/dL (3.4-5.0) L Albumin/Globulin Ratio 0.6 (1.0-1.7) L Lipase 37 U/L (73-393) L Procalcitonin < 0.10 ng/mL (0.00-0.10) Thyroid Stimulating Hormone (TSH) 1.635 uIU/mL (0.358-3.74) Salicylates Level 3.6 mg/dL (2.8-20.0) Salicylate Last Dose Date Unknown Salicylate Last Dose Time Unknown Acetaminophen Level < 2 mcg/ml (10-30) L Acetaminophen Last Dose Date Unknown Acetaminophen Last Dose Time Unknown Ethyl Alcohol Level < 10 mg/dL (0-10) Laboratory Tests 02/28/18 18:00 Laboratory Tests 02/28/18 18:00 EKG EKG 18:[address] Davis sinus tachycardia heart rate 103 no STEMI[] Radiology/Procedures Radiology/Procedures [] Course & Med Decision Making Course & Med Decision Making Pertinent Labs and Imaging studies reviewed. (See chart for details) This is a 63-year-old female patient presenting to the ED today from home to be evaluated for altered mental status change. Patient is not able to give us any history. From notes in the computer patient was discharged from the hospital around December after having intertrochanteric nailing status post hip fracture. CBC with a WBC of 12.0, CMP with potassium of 2.9, anion gap 16, glucose 107, urine with large amount of leukocytes, drug screen noted for opiates. Lactic 2.1. Patient was given 2 L of IV fluids on arrival to the ED. Blood culture pending. Was started on Rocephin. Admitted with normal saline with potassium. 19:[address] Alfred who accepted patient for admission. Staff Physician Addendum: I was working in the ER during the course of this patient's visit. I was available for consultation as needed, but I was not directly involved in the care of this patient. Dragon Disclaimer Dragon Disclaimer This electronic medical record was generated, in whole or in part, using a voice recognition dictation system. Departure Departure Impression: Primary Impression: UTI (urinary tract infection) Additional Impressions: Altered mental status Sepsis Disposition: ADMITTED INPATIENT Condition: STABLE Referrals: LUCA HOPKINS MD (PCP) Problem Qualifiers Primary Impression: UTI (urinary tract infection) Urinary tract infection type: site unspecified Hematuria presence: without hematuria Qualified Codes: N39.0 - Urinary tract infection, site not specified Additional Impressions: Altered mental status Altered mental status type: unspecified Qualified Codes: R41.82 - Altered mental status, unspecified Sepsis Sepsis type: sepsis due to unspecified organism Qualified Codes: A41.9 - Sepsis, unspecified organism MARCELINO SPANGLER APRN Feb 28, 2018 18:22 WHIT DAVIS MD Mar 01, 2018 05:15
[2018-02-28 18:26] LABS: PROTHROMBIN TIME PATIENT 16.6 SEC (11.7-14.0)
[2018-02-28 18:35] LABS: BACTERIA,URINE MANY /HPF (0-FEW); RBC,URINE 0 /HPF (0-2); SQUAMOUS EPITHELIAL CELL,UR OCC /LPF; WBC,URINE >40 /HPF (0-4)
[2018-02-28 18:38] LABS: BARBITURATES NEG (NEG); BENZODIAZEPINES NEG (NEG); CANNABINOIDS NEG (NEG); COCAINE NEG (NEG); METHADONE NEG (NEG); OPIATES POS (NEG); PHENCYCLIDINE NEG (NEG)
[2018-02-28 18:45] LABS: ACETAMIN < 2 mcg/ml (10-30); ETHANOL < 10 mg/dL (0-10); SALIC 3.6 mg/dL (2.8-20.0)
[2018-02-28 18:46] LABS: ALBUMIN 2.9 g/dL (3.4-5.0); ALBUMIN/GLOBULIN RATIO 0.6 (1.0-1.7); CALCIUM 8.6 mg/dL (8.5-10.1); CREATININE 0.8 mg/dL (0.6-1.0); GFR 72.4; TOTAL BILIRUBIN 1.9 mg/dL (0.2-1.0); TOTAL PROTEIN 7.4 g/dL (6.4-8.2)
[2018-02-28 18:46] LABS: AMPHETAMINE/METHAMPHETAMINE NEG (NEG)
[2018-02-28 18:51] LABS: POTASSIUM 2.9 mmol/L (3.5-5.1)
--- NOTE | 2018-02-28 19:05 | RAD ---
PQRS Compliance statement: One or more of the following individualized dose reduction techniques were utilized for this examination: 1. Automated exposure control. 2. Adjustment of the mA and/or kV according to patient size. 3. Use of iterative reconstruction technique. Indication:ams, difficulty cooperating, no priors TECHNIQUE: CT head without IV contrast COMPARISON:None FINDINGS: No pathologic extra-axial or intra-axial fluid collection. The ventricles and basal cisterns are within normal limits. No acute intracranial bleed. No focal loss of bacon-white differentiation. Orbits within normal limits. No suspicious bony lesion. Visualized paranasal sinuses and mastoid air cells are clear. IMPRESSION: No acute intracranial process. If concern for acute ischemic stroke is high, please consider MRI brain. Electronically signed by: Abe Ernst DO (02/28/2018 7:02 PM) [facility]
[2018-02-28] MEDS ORDERED: HALOPERIDOL LACTATE 5 MG/ML VIAL. IM ONE (19:45)
[2018-02-28] MEDS ORDERED: ONDANSETRON PF 4 MG/2 ML VIAL. IV PRN (20:30)
[2018-03-01] VITALS (10 sets, daily range): BP systolic 105–142; BP diastolic 62–87
[2018-03-01 05:19] LABS: BASO # 0.1 x10^3/uL (0.0-0.2); BASO % 1 % (0-3); EOS # 0.6 x10^3/uL (0.0-0.7); EOS % 7 % (0-3); HEMATOCRIT 38.5 % (36.0-47.0); LYMPH % 22 % (24-48); MEAN CORPUSCULAR HEMOGLOBIN 30 pg (25-35); MEAN CORPUSCULAR HGB CONC 34 g/dL (31-37); MEAN CORPUSCULAR VOLUME 90 fL (79-100); MONO # 0.7 x10^3/uL (0.0-1.1); MONO % 7 % (0-9); NEUT # 5.7 x10^3uL (1.8-7.7); NEUT % 63 % (31-73); PLATELET COUNT 147 x10^3/uL (140-400); RED BLOOD COUNT 4.28 x10^6/uL (3.50-5.40); RED CELL DISTRIBUTION WIDTH 13.6 % (11.5-14.5)
[2018-03-01 05:33] LABS: ALBUMIN 2.3 g/dL (3.4-5.0); ALBUMIN/GLOBULIN RATIO 0.6 (1.0-1.7); CALCIUM 8.1 mg/dL (8.5-10.1); CREATININE 0.6 mg/dL (0.6-1.0); TOTAL BILIRUBIN 1.2 mg/dL (0.2-1.0); TOTAL PROTEIN 6.1 g/dL (6.4-8.2)
[2018-03-01 05:44] LABS: POTASSIUM 2.7 mmol/L (3.5-5.1)
[2018-03-01] MEDS ORDERED: POTASSIUM CL 40MEQ IN 0.9%NACL 1,000 ML IV SCH (06:30)
--- NOTE | 2018-03-01 06:33 | EKG ---
[address] [place] [address] Test Date: 2018-02-28 Test Time: 18:13:45 Pat Name: BRANDON PORTER Department: Room: 106 1 Gender: F [employer]er: : [id number] Requested By: MARCELINO SPANGLER Order Number: [id number] Reading MD: Leodan Marcelino MD Measurements Intervals [place] Rate: 103 P: 42 RI: 142 QRS: 32 QRSD: 84 T: 46 QT: 374 QTc: 492 Interpretive Statements SINUS TACHYCARDIA NON-SPECIFIC ST/T CHANGES Electronically Signed On 03-01-2018 12:25:08 CDT by Leodan Marcelino MD
--- NOTE | 2018-03-01 08:04 | PDOC ---
Infectious Disease Note Vital Sign Vital Signs Vital Signs Date Time Temp Pulse Resp B/P (MAP) Pulse Ox O2 Delivery O2 Flow Rate FiO2 03/01/18 07:30 Room Air 03/01/18 07:14 97.6 89 18 125/75 (92) 99 97.6 Labs Lab Laboratory Tests Test 02/28/18 17:53 02/28/18 18:00 02/28/18 22:00 03/01/18 01:30 Urine Collection Type U cath Urine Color [place] Urine Clarity Clear Urine pH 6.0 Urine Specific [place] 1.025 Urine Protein 30 mg/dL (NEG-TRACE) Urine Glucose (UA) Negative mg/dL (NEG) Urine Ketones (Stick) 40 mg/dL (NEG) Urine Blood Negative (NEG) Urine Nitrite Negative (NEG) Urine Bilirubin Large (NEG) Urine Urobilinogen Dipstick 4.0 mg/dL (0.2 mg/dL) Urine Leukocyte Esterase Large (NEG) Urine RBC 0 /HPF (0-2) Urine WBC >40 /HPF (0-4) Urine Squamous Epithelial Cells Occ /LPF Urine Bacteria Many /HPF (0-FEW) Urine Opiates Screen Pos (NEG) Urine Methadone Screen Neg (NEG) Urine Barbiturates Neg (NEG) Urine Phencyclidine Screen Neg (NEG) Urine Amphetamine/Methamphetamine Neg (NEG) Urine Benzodiazepines Screen Neg (NEG) Urine Cocaine Screen Neg (NEG) Urine Cannabinoids Screen Neg (NEG) Urine Ethyl Alcohol Neg (NEG) White Blood Count 12.0 x10^3/uL (4.0-11.0) Red Blood Count 4.91 x10^6/uL (3.50-5.40) Hemoglobin 14.7 g/dL (12.0-15.5) Hematocrit 43.6 % (36.0-47.0) Mean Corpuscular Volume 89 fL (79-100) Mean Corpuscular Hemoglobin 30 pg (25-35) Mean Corpuscular Hemoglobin Concent 34 g/dL (31-37) Red Cell Distribution Width 13.6 % (11.5-14.5) Platelet Count 188 x10^3/uL (140-400) Neutrophils (%) (Auto) 75 % (31-73) Lymphocytes (%) (Auto) 15 % (24-48) Monocytes (%) (Auto) 7 % (0-9) Eosinophils (%) (Auto) 4 % (0-3) Basophils (%) (Auto) 0 % (0-3) Neutrophils # (Auto) 9.0 x10^3uL (1.8-7.7) Lymphocytes # (Auto) 1.7 x10^3/uL (1.0-4.8) Monocytes # (Auto) 0.8 x10^3/uL (0.0-1.1) Eosinophils # (Auto) 0.4 x10^3/uL (0.0-0.7) Basophils # (Auto) 0.0 x10^3/uL (0.0-0.2) Prothrombin Time 16.6 SEC (11.7-14.0) Prothromb Time International Ratio 1.4 (0.8-1.1) Sodium Level 142 mmol/L (136-145) Potassium Level 2.9 mmol/L (3.5-5.1) Chloride Level 105 mmol/L (98-107) Carbon Dioxide Level 21 mmol/L (21-32) Anion Gap 16 (6-14) Blood Urea Nitrogen 20 mg/dL (7-20) Creatinine 0.8 mg/dL (0.6-1.0) Estimated GFR (Cockcroft-Gault) 72.4 BUN/Creatinine Ratio 25 (6-20) Glucose Level 107 mg/dL (70-99) Lactic Acid Level 2.1 mmol/L (0.4-2.0) 1.9 mmol/L (0.4-2.0) 1.0 mmol/L (0.4-2.0) Calcium Level 8.6 mg/dL (8.5-10.1) Magnesium Level 2.0 mg/dL (1.8-2.4) Total Bilirubin 1.9 mg/dL (0.2-1.0) Aspartate Amino Transf (AST/SGOT) 34 U/L (15-37) Alanine Aminotransferase (ALT/SGPT) 31 U/L (14-59) Alkaline Phosphatase 200 U/L (46-116) Ammonia 32 mcmol/L (11-34) Creatine Kinase 164 U/L (26-192) Creatine Kinase MB (Mass) 1.0 ng/mL (0.0-3.6) Creatine Kinase MB Relative Index 0.6 % (0-4) Troponin I Quantitative < 0.017 ng/mL (0.000-0.055) KI-Ggs-R-Type Natriuretic Peptide 90 pg/mL (0-124) Total Protein 7.4 g/dL (6.4-8.2) Albumin 2.9 g/dL (3.4-5.0) Albumin/Globulin Ratio 0.6 (1.0-1.7) Lipase 37 U/L (73-393) Procalcitonin < 0.10 ng/mL (0.00-0.10) Thyroid Stimulating Hormone (TSH) 1.635 uIU/mL (0.358-3.74) Salicylates Level 3.6 mg/dL (2.8-20.0) Salicylate Last Dose Date Unknown Salicylate Last Dose Time Unknown Acetaminophen Level < 2 mcg/ml (10-30) Acetaminophen Last Dose Date Unknown Acetaminophen Last Dose Time Unknown Ethyl Alcohol Level < 10 mg/dL (0-10) Test 03/01/18 02:00 White Blood Count 9.0 x10^3/uL (4.0-11.0) Red Blood Count 4.28 x10^6/uL (3.50-5.40) Hemoglobin 13.0 g/dL (12.0-15.5) Hematocrit 38.5 % (36.0-47.0) Mean Corpuscular Volume 90 fL (79-100) Mean Corpuscular Hemoglobin 30 pg (25-35) Mean Corpuscular Hemoglobin Concent 34 g/dL (31-37) Red Cell Distribution Width 13.6 % (11.5-14.5) Platelet Count 147 x10^3/uL (140-400) Neutrophils (%) (Auto) 63 % (31-73) Lymphocytes (%) (Auto) 22 % (24-48) Monocytes (%) (Auto) 7 % (0-9) Eosinophils (%) (Auto) 7 % (0-3) Basophils (%) (Auto) 1 % (0-3) Neutrophils # (Auto) 5.7 x10^3uL (1.8-7.7) Lymphocytes # (Auto) 2.0 x10^3/uL (1.0-4.8) Monocytes # (Auto) 0.7 x10^3/uL (0.0-1.1) Eosinophils # (Auto) 0.6 x10^3/uL (0.0-0.7) Basophils # (Auto) 0.1 x10^3/uL (0.0-0.2) Sodium Level 145 mmol/L (136-145) Potassium Level 2.7 mmol/L (3.5-5.1) Chloride Level 110 mmol/L (98-107) Carbon Dioxide Level 21 mmol/L (21-32) Anion Gap 14 (6-14) Blood Urea Nitrogen 17 mg/dL (7-20) Creatinine 0.6 mg/dL (0.6-1.0) Estimated GFR (Cockcroft-Gault) 101.0 BUN/Creatinine Ratio 28 (6-20) Glucose Level 82 mg/dL (70-99) Calcium Level 8.1 mg/dL (8.5-10.1) Total Bilirubin 1.2 mg/dL (0.2-1.0) Aspartate Amino Transf (AST/SGOT) 33 U/L (15-37) Alanine Aminotransferase (ALT/SGPT) 24 U/L (14-59) Alkaline Phosphatase 154 U/L (46-116) Total Protein 6.1 g/dL (6.4-8.2) Albumin 2.3 g/dL (3.4-5.0) Albumin/Globulin Ratio 0.6 (1.0-1.7) Objective Assessment Encephalopathy Leukocytosis UTI Hypotension H/O Lung ca Plan Plan of Care zosyn andrews culture supportive care fluids TEJA ZAPATA MD Mar 01, 2018 08:04
--- NOTE | 2018-03-01 08:14 | RAD ---
Left knee radiograph 02/28/2018 6:17 PM INDICATION: Trauma, fall. COMPARISON: None available. TECHNIQUE: 3 views of the left knee are provided. FINDINGS: There is no acute fracture or dislocation. Intramedullary judit and screws are identified involving the distal femur. There suggestion of periosteal new bone formation along the margin of the more proximal screw which appears to be fracture in the middle. Bone mineralization is within normal limits. There is no significant knee joint effusion. There is moderate medial femorotibial joint space narrowing. Regional soft tissues are within normal limits. There is no soft tissue gas or osseous erosion. IMPRESSION: No acute fracture or dislocation. 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 Intramedullary judit and 2 distal screws are identified within the distal femur. The proximal screw demonstrates periosteal new bone formation at the head of the screw with suggestion of a fracture along the middle portion of the threaded component, immediately along the margin of the intramedullary judit. Findings are of indeterminate chronicity, however likely late subacute to chronic. Electronically signed by: Mellisa Mclean MD (03/01/2018 8:10 AM) [email or web address]
--- NOTE | 2018-03-01 08:16 | RAD ---
Chest radiograph 02/28/2018 6:17 PM INDICATION: Altered mental status COMPARISON: March 24, 2017 TECHNIQUE: Supine frontal view of the chest is provided. FINDINGS: The cardiomediastinal silhouette is within normal limits. There are no pleural effusions. There is no pulmonary vascular congestion. Supine technique limits evaluation for pneumothorax. There is a linear density along the right lateral chest margin which is favored to represent mach effect from overlapping soft tissues. The lungs are clear. No significant osseous abnormality is identified. IMPRESSION: No acute cardiopulmonary process. Suspected mach effect along the right lateral chest wall mimicking a pneumothorax. Lung markings appear distal to this region. If there is persistent clinical concern, short-term follow-up radiograph may be obtained in the upright position. Electronically signed by: Mellisa Mclean MD (03/01/2018 8:13 AM) [email or web address]
--- NOTE | 2018-03-01 08:33 | RAD ---
Left hip radiograph 02/28/2018 6:17 PM INDICATION: Trauma, fall with left hip pain. COMPARISON: Pelvis and left hip radiograph December 01, 2017 TECHNIQUE: Single view of the pelvis and 2 dedicated views of the left hip are provided. FINDINGS: When compared to the fluoroscopic images from December 11, 2017, there is new lucency along the subtrochanteric region which may be secondary to remote trauma versus superimposed fracture. A subtle medullary judit and screw identified within the proximal left femur. Bone mineralization is within normal limits. Joint spaces are maintained. Regional soft tissues are within normal limits. There is no soft tissue gas or osseous erosion. IMPRESSION: Lucency in the subtrochanteric region of the left femur along the left femoral hardware may represent sequela of prior trauma versus acute on chronic injury. Cross-sectional imaging may be of benefit if there is persistent clinical concern. Electronically signed by: Mellisa Mclean MD (03/01/2018 8:30 AM) [email or web address]
[2018-03-01] MEDS: PIPERACILLIN/TAZOBACTAM 3.375 GM in IV NORMAL SALINE 50ML 50 ML IV SCH ×3 (08:51→17:59)
--- NOTE | 2018-03-01 09:10 | CONS ---
DATE OF CONSULTATION: 03/01/2018 REQUESTING PHYSICIAN: Dr. Alfred. REASON FOR CONSULTATION: Sepsis. HISTORY OF PRESENT ILLNESS: This is a 63-year-old female with a history of lung cancer, who also has multiple medical problems, who was found down in her apartment. Evidently, the patient was shouting for help from her apartment and the neighbors went in and called EMS. The patient has been altered when she was seen. The patient had hypotension, responded to fluids. White count was 12,000. There was no fever. The patient's altered mental status has improved to some extent, to be able to communicate off and on better. Also, blood pressure has improved that she is not requiring any support. There is no nausea, vomiting, diarrhea noted by nursing. The patient is currently out of it and is not able to provide me with any information. There is no family member, all the information was obtained through chart review and discussing with patient's nurse. PAST MEDICAL HISTORY: Positive for lung cancer, hepatitis, cirrhosis of liver, chronic back problem with pain medication, sciatica, hepatitis C. PAST SURGICAL HISTORY: Has had appendicectomy, oophorectomy, tonsillectomy and hysterectomy, hernia repair with mesh placement, has had back surgery, left femur fracture surgery. SOCIAL HISTORY: Unable to obtain. ALLERGIES: No known drug allergies listed. CURRENT MEDICATIONS: The patient received one dose of Rocephin. REVIEW OF SYSTEMS: Unable to do through the patient, but as I mentioned in the HPI, through the nurse. PHYSICAL EXAMINATION: GENERAL: Somnolent female who is arousable, not in any distress. VITAL SIGNS: Stable, afebrile. HEENT: NAD. NECK: Supple, no JVP, no lymphadenopathy. LUNGS: Clear. HEART: S1, S2 regular. ABDOMEN: Benign. EXTREMITIES: No edema, cyanosis. SKIN: Unremarkable. NEUROLOGIC: The patient is barely arousable, mumbles few words, and does move all the extremities. LABORATORY DATA: White count is from 12,000 down to 9000 today. Platelets are normal. BUN and creatinine is normal. Potassium is 2.7. Liver functions are normal. Alkaline phosphatase is 154, slightly high. Albumin is 2.3. Lactic acid up to 1.9. Cultures are pending. CT of the head is unremarkable for any acute changes. Chest x-ray and other x-rays are pending. IMPRESSION: 1. Encephalopathy, etiology is unclear. It is not hepatic encephalopathy, ammonia level is done, is 32 and the lactic acid has been up to 2.1. This could be pain medication induced. She does have urinary tract infection, but she does not look septic from urinary tract infection causing altered mental status. 2. Leukocytosis. 3. Hypotension, which had responded to the fluids. 4. Urinary tract infection. 5. History of lung cancer. RECOMMENDATION: Would use Zosyn, andrews cultures, supportive care, fluids, and we will continue to follow. Thank you very much, Dr. Alfred, for giving me the opportunity to participate in this patient's care. TEJA ZAPATA MD DR: AN/sergey JOB#: [id number] / [id number] GAGE
[2018-03-01] MEDS ORDERED: ONDANSETRON ODT 4 MG TAB.RAPDIS. PO PRN (10:00)
[2018-03-01] MEDS ORDERED: FENT1PAT15 TP (10:06)
[2018-03-01] MEDS ORDERED: ALBUTEROL SULFATE 2.5 MG/3 ML NEBU. NEB PRN (10:15)
[2018-03-01] MEDS ORDERED: PROMETHAZINE 12.5 MG TABLET. PO PRN (10:15)
[2018-03-01] MEDS: FUROSEMIDE 40 MG TABLET. PO SCH (10:35)
[2018-03-01] MEDS: fentaNYL 25MCG/HR PATCH 1 PATCH PATCH.TD72 TD SCH (10:36)
[2018-03-01] MEDS: oxyCODONE IR 5 MG TABLET PO PRN ×3 (10:36→20:53)
[2018-03-01] MEDS: PANTOPRAZOLE 40 MG TABLET.DR. PO SCH (10:36)
[2018-03-01] MEDS: FLUoxetine HCL 10 MG CAPSULE PO SCH (10:37)
[2018-03-01] MEDS: amLODIPine BESYLATE 5 MG TABLET PO SCH (10:41)
--- NOTE | 2018-03-01 10:54 | HP ---
ADMIT DATE: 03/01/2018 CHIEF COMPLAINT: Mental status change. HISTORY OF PRESENT ILLNESS: The patient is a pleasant 63-year-old female with multiple medical issues. Basically, she was screaming in her apartment. She was found down when they called EMS. She was hypotensive and had metabolic encephalopathy. She was brought to the ER for evaluation, noted to have UTI with sepsis. The patient has now been admitted to the ICU where she is starting to improve. PAST MEDICAL HISTORY: Lung cancer, hepatitis, chronic pain, back problems, sciatica, hepatitis C. ALLERGIES: None. FAMILY HISTORY: Diabetes. 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 She is on social security now. She does not drink, smoke or take drugs. MEDICATIONS: Reviewed. Please refer to the MRAD. REVIEW OF SYSTEMS: GENERAL: No history of weight change, weakness or fevers. SKIN: No bruising, hair changes or rashes. EYES: No blurred, double or loss of vision. NOSE AND THROAT: No history of nosebleeds, hoarseness or sore throat. HEART: No history of palpitations, chest pain or shortness of breath on exertion. LUNGS: Denies cough, hemoptysis, wheezing or shortness of breath. GASTROINTESTINAL: Denies changes in appetite, nausea, vomiting, diarrhea or constipation. GENITOURINARY: No history of frequency, urgency, hesitancy or nocturia. NEUROLOGIC: Denies history of numbness, tingling, tremor or weakness. PSYCHIATRIC: No history of panic, anxiety or depression. ENDOCRINE: No history of heat or cold intolerance, polyuria or polydipsia. EXTREMITIES: Denies muscle weakness, joint pain, pain on walking or stiffness. MUSCULOSKELETAL: She complains of back pain and is requesting her fentanyl patch. PHYSICAL EXAMINATION: VITAL SIGNS: Temperature currently afebrile. When she arrived, it was 98.4 and is now 97.6, pulse 90, respirations 18, blood pressure 125/75. GENERAL: She is awake, soft spoken, but able to talk to me, has a 1:1 observer. HEART: Normal S1, S2. LUNGS: Clear. ABDOMEN: Soft and tender. EXTREMITIES: Trace edema. SKIN: No rashes. ENDOCRINE: No thyromegaly. LYMPHATICS: No cervical nodes. HEMATOPOIETIC: No bruising. LABORATORY DATA: White count was 12, it is down to 9. Electrolytes: Sodium 145, potassium 2.7, chloride 110, bicarbonate 21, BUN 17, creatinine 0.6, glucose is 82. Urinalysis showed a large amount of leukocyte esterase and greater than 40 white cells. ASSESSMENT AND PLAN: Probable metabolic encephalopathy from urinary tract infection with sepsis. ICU monitoring, IV fluids, IV antibiotics. Consult ID. Continue home medicines, PT, OT, frequent labs. HUANG PÉREZ DO DR: VAUGHN/sergey JOB#: [id number] / [id number]
[2018-03-01] MEDS ORDERED: POTASSIUM CHLORIDE 20 MEQ TABLET.ER. PO ONE (11:00)
[2018-03-01] MEDS ORDERED: ZOLPIDEM 5 MG TABLET. PO SCH (21:00)
[2018-03-02] MEDS: PIPERACILLIN/TAZOBACTAM 3.375 GM in IV NORMAL SALINE 50ML 50 ML IV SCH ×5 (00:58→23:51)
[2018-03-02] MEDS: oxyCODONE IR 5 MG TABLET PO PRN ×4 (03:30→22:26)
[2018-03-02 03:41] VITALS: BP 123/77
[2018-03-02 04:28] LABS: BASO # 0.1 x10^3/uL (0.0-0.2); BASO % 1 % (0-3); EOS # 0.8 x10^3/uL (0.0-0.7); EOS % 13 % (0-3); HEMATOCRIT 38.1 % (36.0-47.0); HEMOGLOBIN 13.1 g/dL (12.0-15.5); LYMPH # 1.8 x10^3/uL (1.0-4.8); LYMPH % 28 % (24-48); MEAN CORPUSCULAR HEMOGLOBIN 31 pg (25-35); MEAN CORPUSCULAR HGB CONC 34 g/dL (31-37); MEAN CORPUSCULAR VOLUME 89 fL (79-100); MONO # 0.4 x10^3/uL (0.0-1.1); MONO % 7 % (0-9); NEUT # 3.3 x10^3uL (1.8-7.7); NEUT % 52 % (31-73); PLATELET COUNT 138 x10^3/uL (140-400); RED BLOOD COUNT 4.27 x10^6/uL (3.50-5.40); RED CELL DISTRIBUTION WIDTH 13.7 % (11.5-14.5); WHITE BLOOD COUNT 6.4 x10^3/uL (4.0-11.0)
[2018-03-02 04:43] LABS: CALCIUM 7.9 mg/dL (8.5-10.1); CREATININE 0.6 mg/dL (0.6-1.0)
[2018-03-02 04:47] LABS: POTASSIUM 2.8 mmol/L (3.5-5.1)
[2018-03-02] MEDS ORDERED: POTASSIUM CHLORIDE 20 MEQ TABLET.ER. PO ONE ×2 (06:00→08:00)
[2018-03-02 07:00] VITALS: BP 115/72
[2018-03-02] MEDS: FLUoxetine HCL 10 MG CAPSULE PO SCH (08:30)
[2018-03-02] MEDS: FUROSEMIDE 40 MG TABLET. PO SCH (08:30)
[2018-03-02] MEDS: PANTOPRAZOLE 40 MG TABLET.DR. PO SCH (08:30)
[2018-03-02] MEDS: amLODIPine BESYLATE 5 MG TABLET PO SCH (08:31)
[2018-03-02] MEDS: POTASSIUM CHLORIDE 20 MEQ TABLET.ER. PO SCH ×2 (09:50→16:14)
--- NOTE | 2018-03-02 09:53 | PDOC ---
Infectious Disease Note Subjective Subjective Comfortable, denies pain No further bouts of diarrhea No F/C/N/V ROS ROS Per HPI, otherwise negative Vital Sign Vital Signs Vital Signs Date Time Temp Pulse Resp B/P (MAP) Pulse Ox O2 Delivery O2 Flow Rate FiO2 03/02/18 08:31 88 115/72 03/02/18 07:58 Room Air 03/02/18 07:00 98.3 16 97 98.3 Physical Exam PHYSICAL EXAM GENERAL: Resting quietly LUNGS: Clear. HEART: S1, S2 regular. ABDOMEN: Obese, soft, NT EXTREMITIES: No edema, cyanosis. SKIN: warm NEUROLOGIC: Arouses to name, oriented, attention span Labs Lab Laboratory Tests Test 03/02/18 04:05 White Blood Count 6.4 x10^3/uL (4.0-11.0) Red Blood Count 4.27 x10^6/uL (3.50-5.40) Hemoglobin 13.1 g/dL (12.0-15.5) Hematocrit 38.1 % (36.0-47.0) Mean Corpuscular Volume 89 fL (79-100) Mean Corpuscular Hemoglobin 31 pg (25-35) Mean Corpuscular Hemoglobin Concent 34 g/dL (31-37) Red Cell Distribution Width 13.7 % (11.5-14.5) Platelet Count 138 x10^3/uL (140-400) Neutrophils (%) (Auto) 52 % (31-73) Lymphocytes (%) (Auto) 28 % (24-48) Monocytes (%) (Auto) 7 % (0-9) Eosinophils (%) (Auto) 13 % (0-3) Basophils (%) (Auto) 1 % (0-3) Neutrophils # (Auto) 3.3 x10^3uL (1.8-7.7) Lymphocytes # (Auto) 1.8 x10^3/uL (1.0-4.8) Monocytes # (Auto) 0.4 x10^3/uL (0.0-1.1) Eosinophils # (Auto) 0.8 x10^3/uL (0.0-0.7) Basophils # (Auto) 0.1 x10^3/uL (0.0-0.2) Sodium Level 142 mmol/L (136-145) Potassium Level 2.8 mmol/L (3.5-5.1) Chloride Level 110 mmol/L (98-107) Carbon Dioxide Level 23 mmol/L (21-32) Anion Gap 9 (6-14) Blood Urea Nitrogen 6 mg/dL (7-20) Creatinine 0.6 mg/dL (0.6-1.0) Estimated GFR (Cockcroft-Gault) 101.0 Glucose Level 104 mg/dL (70-99) Calcium Level 7.9 mg/dL (8.5-10.1) Micro Microbiology 02/28/18 Blood Culture - Preliminary, Resulted NO GROWTH AFTER 1 DAY Objective Assessment Encephalopathy, etiology is unclear. Leukocytosis - improved Hypotension, which had responded to the fluids. Urinary tract infection. culture pending History of lung cancer. Plan Plan of Care Zosyn Awaiting culture results Monitor labs/temp Fluids Supportive care Attending Co-Sign The patient was seen and interviewed as well as examined at the bedside. The chart was reviewed. The case was discussed. Agree with the plan of care. NIK FOWLER APRN Mar 02, 2018 09:53 TEJA ZAPATA MD Mar 02, 2018 13:05
[2018-03-02 11:00] VITALS: BP 167/92
--- NOTE | 2018-03-02 12:56 | PDOC ---
PROGRESS NOTES Chief Complaint Chief Complaint UTI Sepsis POA with target organ damage namely enceph Metabolic encephalopathy secondary to above History lung cancer, history of hepatitis C Acute on chronic left hip pain Critical hypokalemia History of Present Illness History of Present Illness Wants to go to her sister's today but labs are still abN Transferred out of ICU 03/01/18 for confusion,sepsis, uti and critical elytes Potassium still critically low at 2.8, day 3 of like this I will check magnesium and increase KCl dose Getting IV antibiotics for UTI Urine culture pending Confusion is much better but still weak Left hip pain is bothersome to her, CAT scan of abdomen and pelvis or hip reviewed Plan: Consult physiatry re hip pain Increase KCl Check mag and replete if low Check labs again tomorrow Follow-up urine culture PT OT I am unable to DC today to attend sister's services because of the above Vitals Vitals Vital Signs Date Time Temp Pulse Resp B/P (MAP) Pulse Ox O2 Delivery O2 Flow Rate FiO2 03/02/18 11:02 Room Air 03/02/18 11:00 98.0 89 18 167/92 (117) 98 98.0 Physical Exam Physical Exam GENERAL: Resting quietly LUNGS: Clear. HEART: S1, S2 regular. ABDOMEN: Obese, soft, NT EXTREMITIES: No edema, cyanosis. SKIN: warm NEUROLOGIC: Arouses to name, oriented, attention span General: Alert, Oriented X3, Cooperative, No acute distress, Other (weak looking) Heart: Regular rate, Normal S1, Normal S2 Lungs: Clear Abdomen: Normal bowel sounds, Soft, No tenderness Extremities: No clubbing, No cyanosis, No edema, Normal pulses, Other (left hip pain and tenderness) Skin: No rashes, No breakdown Labs LABS Laboratory Tests Test 03/02/18 04:05 White Blood Count 6.4 x10^3/uL (4.0-11.0) Red Blood Count 4.27 x10^6/uL (3.50-5.40) Hemoglobin 13.1 g/dL (12.0-15.5) Hematocrit 38.1 % (36.0-47.0) Mean Corpuscular Volume 89 fL (79-100) Mean Corpuscular Hemoglobin 31 pg (25-35) Mean Corpuscular Hemoglobin Concent 34 g/dL (31-37) Red Cell Distribution Width 13.7 % (11.5-14.5) Platelet Count 138 x10^3/uL (140-400) Neutrophils (%) (Auto) 52 % (31-73) Lymphocytes (%) (Auto) 28 % (24-48) Monocytes (%) (Auto) 7 % (0-9) Eosinophils (%) (Auto) 13 % (0-3) Basophils (%) (Auto) 1 % (0-3) Neutrophils # (Auto) 3.3 x10^3uL (1.8-7.7) Lymphocytes # (Auto) 1.8 x10^3/uL (1.0-4.8) Monocytes # (Auto) 0.4 x10^3/uL (0.0-1.1) Eosinophils # (Auto) 0.8 x10^3/uL (0.0-0.7) Basophils # (Auto) 0.1 x10^3/uL (0.0-0.2) Sodium Level 142 mmol/L (136-145) Potassium Level 2.8 mmol/L (3.5-5.1) Chloride Level 110 mmol/L (98-107) Carbon Dioxide Level 23 mmol/L (21-32) Anion Gap 9 (6-14) Blood Urea Nitrogen 6 mg/dL (7-20) Creatinine 0.6 mg/dL (0.6-1.0) Estimated GFR (Cockcroft-Gault) 101.0 Glucose Level 104 mg/dL (70-99) Calcium Level 7.9 mg/dL (8.5-10.1) Magnesium Level 1.6 mg/dL (1.8-2.4) Review of Systems Review of Systems Left hip pain, weak, the rest of ROS 14 point negative Comment Review of Relevant I have reviewed the following items nelida (where applicable) has been applied. Labs Laboratory Tests Test 02/28/18 17:53 02/28/18 18:00 02/28/18 22:00 02/28/18 22:22 Urine Collection Type U cath Urine Color Ponce Urine Clarity Clear Urine pH 6.0 Urine Specific [place] 1.025 Urine Protein 30 mg/dL (NEG-TRACE) Urine Glucose (UA) Negative mg/dL (NEG) Urine Ketones (Stick) 40 mg/dL (NEG) Urine Blood Negative (NEG) Urine Nitrite Negative (NEG) Urine Bilirubin Large (NEG) Urine Urobilinogen Dipstick 4.0 mg/dL (0.2 mg/dL) Urine Leukocyte Esterase Large (NEG) Urine RBC 0 /HPF (0-2) Urine WBC >40 /HPF (0-4) Urine Squamous Epithelial Cells Occ /LPF Urine Bacteria Many /HPF (0-FEW) Urine Opiates Screen Pos (NEG) Urine Methadone Screen Neg (NEG) Urine Barbiturates Neg (NEG) Urine Phencyclidine Screen Neg (NEG) Urine Amphetamine/Methamphetamine Neg (NEG) Urine Benzodiazepines Screen Neg (NEG) Urine Cocaine Screen Neg (NEG) Urine Cannabinoids Screen Neg (NEG) Urine Ethyl Alcohol Neg (NEG) White Blood Count 12.0 x10^3/uL (4.0-11.0) Red Blood Count 4.91 x10^6/uL (3.50-5.40) Hemoglobin 14.7 g/dL (12.0-15.5) Hematocrit 43.6 % (36.0-47.0) Mean Corpuscular Volume 89 fL (79-100) Mean Corpuscular Hemoglobin 30 pg (25-35) Mean Corpuscular Hemoglobin Concent 34 g/dL (31-37) Red Cell Distribution Width 13.6 % (11.5-14.5) Platelet Count 188 x10^3/uL (140-400) Neutrophils (%) (Auto) 75 % (31-73) Lymphocytes (%) (Auto) 15 % (24-48) Monocytes (%) (Auto) 7 % (0-9) Eosinophils (%) (Auto) 4 % (0-3) Basophils (%) (Auto) 0 % (0-3) Neutrophils # (Auto) 9.0 x10^3uL (1.8-7.7) Lymphocytes # (Auto) 1.7 x10^3/uL (1.0-4.8) Monocytes # (Auto) 0.8 x10^3/uL (0.0-1.1) Eosinophils # (Auto) 0.4 x10^3/uL (0.0-0.7) Basophils # (Auto) 0.0 x10^3/uL (0.0-0.2) Prothrombin Time 16.6 SEC (11.7-14.0) Prothromb Time International Ratio 1.4 (0.8-1.1) Sodium Level 142 mmol/L (136-145) Potassium Level 2.9 mmol/L (3.5-5.1) Chloride Level 105 mmol/L (98-107) Carbon Dioxide Level 21 mmol/L (21-32) Anion Gap 16 (6-14) Blood Urea Nitrogen 20 mg/dL (7-20) Creatinine 0.8 mg/dL (0.6-1.0) Estimated GFR (Cockcroft-Gault) 72.4 BUN/Creatinine Ratio 25 (6-20) Glucose Level 107 mg/dL (70-99) Lactic Acid Level 2.1 mmol/L (0.4-2.0) 1.9 mmol/L (0.4-2.0) Calcium Level 8.6 mg/dL (8.5-10.1) Magnesium Level 2.0 mg/dL (1.8-2.4) Total Bilirubin 1.9 mg/dL (0.2-1.0) Aspartate Amino Transf (AST/SGOT) 34 U/L (15-37) Alanine Aminotransferase (ALT/SGPT) 31 U/L (14-59) Alkaline Phosphatase 200 U/L (46-116) Ammonia 32 mcmol/L (11-34) Creatine Kinase 164 U/L (26-192) Creatine Kinase MB (Mass) 1.0 ng/mL (0.0-3.6) Creatine Kinase MB Relative Index 0.6 % (0-4) Troponin I Quantitative < 0.017 ng/mL (0.000-0.055) SF-Bjv-O-Type Natriuretic Peptide 90 pg/mL (0-124) Total Protein 7.4 g/dL (6.4-8.2) Albumin 2.9 g/dL (3.4-5.0) Albumin/Globulin Ratio 0.6 (1.0-1.7) Lipase 37 U/L (73-393) Procalcitonin < 0.10 ng/mL (0.00-0.10) Thyroid Stimulating Hormone (TSH) 1.635 uIU/mL (0.358-3.74) Salicylates Level 3.6 mg/dL (2.8-20.0) Salicylate Last Dose Date Unknown Salicylate Last Dose Time Unknown Acetaminophen Level < 2 mcg/ml (10-30) Acetaminophen Last Dose Date Unknown Acetaminophen Last Dose Time Unknown Ethyl Alcohol Level < 10 mg/dL (0-10) Nasal Screen MRSA (PCR) Negative (Negative) Test 03/01/18 01:30 03/01/18 02:00 03/02/18 04:05 Lactic Acid Level 1.0 mmol/L (0.4-2.0) White Blood Count 9.0 x10^3/uL (4.0-11.0) 6.4 x10^3/uL (4.0-11.0) Red Blood Count 4.28 x10^6/uL (3.50-5.40) 4.27 x10^6/uL (3.50-5.40) Hemoglobin 13.0 g/dL (12.0-15.5) 13.1 g/dL (12.0-15.5) Hematocrit 38.5 % (36.0-47.0) 38.1 % (36.0-47.0) Mean Corpuscular Volume 90 fL (79-100) 89 fL (79-100) Mean Corpuscular Hemoglobin 30 pg (25-35) 31 pg (25-35) Mean Corpuscular Hemoglobin Concent 34 g/dL (31-37) 34 g/dL (31-37) Red Cell Distribution Width 13.6 % (11.5-14.5) 13.7 % (11.5-14.5) Platelet Count 147 x10^3/uL (140-400) 138 x10^3/uL (140-400) Neutrophils (%) (Auto) 63 % (31-73) 52 % (31-73) Lymphocytes (%) (Auto) 22 % (24-48) 28 % (24-48) Monocytes (%) (Auto) 7 % (0-9) 7 % (0-9) Eosinophils (%) (Auto) 7 % (0-3) 13 % (0-3) Basophils (%) (Auto) 1 % (0-3) 1 % (0-3) Neutrophils # (Auto) 5.7 x10^3uL (1.8-7.7) 3.3 x10^3uL (1.8-7.7) Lymphocytes # (Auto) 2.0 x10^3/uL (1.0-4.8) 1.8 x10^3/uL (1.0-4.8) Monocytes # (Auto) 0.7 x10^3/uL (0.0-1.1) 0.4 x10^3/uL (0.0-1.1) Eosinophils # (Auto) 0.6 x10^3/uL (0.0-0.7) 0.8 x10^3/uL (0.0-0.7) Basophils # (Auto) 0.1 x10^3/uL (0.0-0.2) 0.1 x10^3/uL (0.0-0.2) Sodium Level 145 mmol/L (136-145) 142 mmol/L (136-145) Potassium Level 2.7 mmol/L (3.5-5.1) 2.8 mmol/L (3.5-5.1) Chloride Level 110 mmol/L (98-107) 110 mmol/L (98-107) Carbon Dioxide Level 21 mmol/L (21-32) 23 mmol/L (21-32) Anion Gap 14 (6-14) 9 (6-14) Blood Urea Nitrogen 17 mg/dL (7-20) 6 mg/dL (7-20) Creatinine 0.6 mg/dL (0.6-1.0) 0.6 mg/dL (0.6-1.0) Estimated GFR (Cockcroft-Gault) 101.0 101.0 BUN/Creatinine Ratio 28 (6-20) Glucose Level 82 mg/dL (70-99) 104 mg/dL (70-99) Calcium Level 8.1 mg/dL (8.5-10.1) 7.9 mg/dL (8.5-10.1) Total Bilirubin 1.2 mg/dL (0.2-1.0) Aspartate Amino Transf (AST/SGOT) 33 U/L (15-37) Alanine Aminotransferase (ALT/SGPT) 24 U/L (14-59) Alkaline Phosphatase 154 U/L (46-116) Total Protein 6.1 g/dL (6.4-8.2) Albumin 2.3 g/dL (3.4-5.0) Albumin/Globulin Ratio 0.6 (1.0-1.7) Magnesium Level 1.6 mg/dL (1.8-2.4) Laboratory Tests Test 03/02/18 04:05 White Blood Count 6.4 x10^3/uL (4.0-11.0) Red Blood Count 4.27 x10^6/uL (3.50-5.40) Hemoglobin 13.1 g/dL (12.0-15.5) Hematocrit 38.1 % (36.0-47.0) Mean Corpuscular Volume 89 fL (79-100) Mean Corpuscular Hemoglobin 31 pg (25-35) Mean Corpuscular Hemoglobin Concent 34 g/dL (31-37) Red Cell Distribution Width 13.7 % (11.5-14.5) Platelet Count 138 x10^3/uL (140-400) Neutrophils (%) (Auto) 52 % (31-73) Lymphocytes (%) (Auto) 28 % (24-48) Monocytes (%) (Auto) 7 % (0-9) Eosinophils (%) (Auto) 13 % (0-3) Basophils (%) (Auto) 1 % (0-3) Neutrophils # (Auto) 3.3 x10^3uL (1.8-7.7) Lymphocytes # (Auto) 1.8 x10^3/uL (1.0-4.8) Monocytes # (Auto) 0.4 x10^3/uL (0.0-1.1) Eosinophils # (Auto) 0.8 x10^3/uL (0.0-0.7) Basophils # (Auto) 0.1 x10^3/uL (0.0-0.2) Sodium Level 142 mmol/L (136-145) Potassium Level 2.8 mmol/L (3.5-5.1) Chloride Level 110 mmol/L (98-107) Carbon Dioxide Level 23 mmol/L (21-32) Anion Gap 9 (6-14) Blood Urea Nitrogen 6 mg/dL (7-20) Creatinine 0.6 mg/dL (0.6-1.0) Estimated GFR (Cockcroft-Gault) 101.0 Glucose Level 104 mg/dL (70-99) Calcium Level 7.9 mg/dL (8.5-10.1) Magnesium Level 1.6 mg/dL (1.8-2.4) Microbiology 02/28/18 Blood Culture - Preliminary, Resulted NO GROWTH AFTER 1 DAY Medications Current Medications Sodium Chloride 1,000 ml @ 1,000 mls/hr 1X ONCE IV Last administered on at 19:11; Start 02/28/18 at 18:15; Stop 02/28/18 at 19:14; Status DC Sodium Chloride 1,000 ml @ 1,000 mls/hr 1X ONCE IV Last administered on at 19:12; Start 02/28/18 at 19:00; Stop 02/28/18 at 19:59; Status DC Ceftriaxone Sodium 50 ml @ 100 mls/hr 1X ONCE IV Last administered on at 19:00; Start 02/28/18 at 19:00; Stop 02/28/18 at 19:29; Status DC Potassium Chloride/Sodium Chloride 1,000 ml @ 75 mls/hr 1X ONCE IV Last administered on 02/28/18at 22:17; Start 02/28/18 at 19:15; Stop 03/01/18 at 08:34 ; Status DC Haloperidol Lactate (Haldol Inj) 2.5 mg 1X ONCE IM Last administered on at 19:45; Start 02/28/18 at 19:45; Stop 02/28/18 at 19:46; Status DC Ondansetron HCl (Zofran) 4 mg PRN Q8HRS PRN IV NAUSEA/VOMITING; Start 02/28/18 at 20:30; Stop 03/01/18 at 20:29; Status DC Potassium Chloride/Sodium Chloride 1,000 ml @ 75 mls/hr 1X ONCE IV ; Start at 20:30; Stop 03/01/18 at 09:49; Status UNV Lorazepam (Ativan) 1 mg 1X ONCE IV Last administered on 02/28/18at 22:37; Start 02/28/18 at 23:00; Stop 02/28/18 at 23:01; Status DC Lorazepam (Ativan) 1 mg PRN Q4HRS PRN IV ANXIETY / AGITATION Last administered on 03/02/18at 10:57; Start 03/01/18 at 00:00 Lorazepam (Ativan) 0.5 mg 1X ONCE IV Last administered on 03/01/18at 00:09; Start 03/01/18 at 00:00; Stop 03/01/18 at 00:01; Status DC Potassium Chloride/Sodium Chloride 1,000 ml @ 250 mls/hr Q4H IV Last administered on 03/01/18at 06:10; Start 03/01/18 at 06:30; Stop 03/01/18 at 10:29 ; Status DC Piperacillin Sod/ Tazobactam Sod 3.375 gm/Sodium Chloride 50 ml @ 100 mls/hr Q6HRS IV Last administered on 03/02/18at 11:47; Start 03/01/18 at 08:30 Amlodipine Besylate (Norvasc) 5 mg DAILY PO Last administered on 03/02/18at 08: 31; Start 03/01/18 at 11:00 Fluoxetine HCl (PROzac) 10 mg DAILY PO Last administered on 03/02/18at 08:30; Start 03/01/18 at 11:00 Furosemide (Lasix) 40 mg DAILY PO Last administered on 03/02/18at 08:30; Start 03/01/18 at 11:00 Ondansetron HCl (Zofran Odt) 4 mg PRN Q8HRS PRN PO NAUSEA; Start 03/01/18 at 10 :00 Zolpidem Tartrate (Ambien) 5 mg QHS PO Last administered on 03/01/18at 20:53; Start 03/01/18 at 21:00 Albuterol Sulfate (Ventolin Neb Soln) 2.5 mg PRN Q6HRS PRN NEB SHORTNESS OF BREATH; Start 03/01/18 at 10:15 Ibuprofen (Motrin) 600 mg PRN Q6HRS PRN PO MILD PAIN/INFLAMMATION; Start at 10:15 Pantoprazole Sodium (Protonix) 40 mg DAILYAC PO Last administered on 03/02/18at 08:30; Start 03/01/18 at 11:00 Oxycodone HCl (Roxicodone) 10 mg PRN Q6HRS PRN PO MODERATE-SEVERE PAIN Last administered on 03/02/18at 09:53; Start 03/01/18 at 10:15 Promethazine HCl (Phenergan) 25 mg PRN Q6HRS PRN PO NAUSEA/VOMITING; Start at 10:15 Potassium Chloride (Klor-Con) 40 meq 1X ONCE PO Last administered on at 10:37; Start 03/01/18 at 11:00; Stop 03/01/18 at 11:01; Status DC Fentanyl (Duragesic 25mcg/ Hr Patch) 1 patch Q3DAYS TD Last administered on at 10:36; Start 03/01/18 at 11:00 Potassium Chloride (Klor-Con) 40 meq 1X ONCE PO Last administered on at 06:16; Start 03/02/18 at 06:00; Stop 03/02/18 at 06:04; Status DC Potassium Chloride (Klor-Con) 40 meq 1X ONCE PO Last administered on at 08:30; Start 03/02/18 at 08:00; Stop 03/02/18 at 08:01; Status DC Potassium Chloride (Klor-Con) 40 meq BIDWMEALS PO Last administered on at 09:50; Start 03/02/18 at 10:00 Active Scripts Active Oxycodone Hcl 5 Mg Tablet 10 Mg PO PRN Q6HRS PRN Reported FENTANYL 25mcg/hr (Fentanyl) 1 Each Patch.td72 1 Patch TP Q3DAYS Lasix (Furosemide) 40 Mg Tablet 1 Tab PO DAILY Proair Hfa Inhaler (Albuterol Sulfate) 8.5 Gm Hfa.aer.ad 1 Puff INH PRN Q6HRS PRN Promethazine Hcl 25 Mg Tablet 1 Tab PO PRN Q6HRS Ambien (Zolpidem Tartrate) 5 Mg Tablet 1 Tab PO QHS Ms Contin (Morphine Sulfate) 30 Mg Tablet.er 1 Tab PO TID Ondansetron Odt (Ondansetron) 4 Mg Tab.rapdis 1 Tab PO PRN Q8HRS PRN Ibuprofen 600 Mg Tablet 600 Mg PO PRN TID PRN Fluoxetine Hcl 10 Mg Capsule 1 Cap PO DAILY Amlodipine Besylate 5 Mg Tablet 5 Mg PO DAILY Prilosec Otc (Omeprazole Magnesium) 20 Mg Tablet. 1 Tab PO DAILY Vitals/I & O Vital Sign - Last 24 Hours 03/01/18 03/01/18 03/01/18 03/01/18 15:00 16:25 17:25 19:53 Temp 98.4 98.3 98.4 98.3 Pulse 87 84 Resp 16 18 17 18 B/P (MAP) 105/62 (76) 142/87 (105) Pulse Ox 98 98 O2 Delivery Room Air Room Air Room Air 03/01/18 03/01/18 03/01/18 03/02/18 20:00 20:53 23:16 03:30 Temp 98.1 98.1 Pulse 96 Resp 18 B/P (MAP) 113/72 (86) Pulse Ox 97 O2 Delivery Room Air Room Air Room Air Room Air 03/02/18 03/02/18 03/02/18 03/02/18 03:41 07:00 07:58 08:31 Temp 97.7 98.3 97.7 98.3 Pulse 86 88 88 Resp 16 16 B/P (MAP) 123/77 (92) 115/72 (86) 115/72 Pulse Ox 97 97 O2 Delivery Room Air Room Air Room Air 03/02/18 03/02/18 03/02/18 09:53 11:00 11:02 Temp 98.0 98.0 Pulse 89 Resp 18 B/P (MAP) 167/92 (117) Pulse Ox 98 O2 Delivery Room Air Room Air Room Air Intake and Output 03/01/18 03/01/18 03/02/18 15:00 23:00 07:00 Intake Total 640 ml 240 ml Output Total 0 ml Balance 640 ml 240 ml NOEMI BAEZ MD Mar 02, 2018 12:56
[2018-03-02] MEDS ORDERED: TEMAZEPAM 7.5 MG CAPSULE PO PRN (13:00)
[2018-03-02] MEDS ORDERED: MAGNESIUM SULFATE 2GM 50 ML IV ONE (13:30)
[2018-03-02 15:00] VITALS: BP 107/70
[2018-03-02] MEDS: LIDOCAINE (700MG/PATCH) PATCH. TD PRN (15:11)
[2018-03-02] MEDS: PATCH REMOVAL. MC SCH (19:31)
[2018-03-02 19:39] VITALS: BP 125/75
[2018-03-02] MEDS: LACTOBACILLUS RHAMNOSUS GG 1 CAPSULE. PO SCH (20:53)
[2018-03-02] MEDS: IBUPROFEN 600 MG TABLET. PO PRN (20:53)
[2018-03-02 23:45] VITALS: BP 117/76
[2018-03-03] MEDS: IBUPROFEN 600 MG TABLET. PO PRN ×2 (02:50→08:17)
[2018-03-03 03:14] VITALS: BP 106/66
[2018-03-03] MEDS: oxyCODONE IR 5 MG TABLET PO PRN ×3 (04:24→18:12)
[2018-03-03] MEDS: PIPERACILLIN/TAZOBACTAM 3.375 GM in IV NORMAL SALINE 50ML 50 ML IV SCH ×2 (06:00→12:00)
[2018-03-03 07:00] VITALS: BP 120/77
[2018-03-03] MEDS: FUROSEMIDE 40 MG TABLET. PO SCH (07:10)
[2018-03-03] MEDS: PANTOPRAZOLE 40 MG TABLET.DR. PO SCH (08:16)
[2018-03-03] MEDS: LIDOCAINE (700MG/PATCH) PATCH. TD PRN (08:16)
[2018-03-03] MEDS: amLODIPine BESYLATE 5 MG TABLET PO SCH (08:17)
[2018-03-03] MEDS: POTASSIUM CHLORIDE 20 MEQ TABLET.ER. PO SCH ×2 (08:17→15:53)
[2018-03-03] MEDS: FLUoxetine HCL 10 MG CAPSULE PO SCH (08:17)
[2018-03-03] MEDS: LACTOBACILLUS RHAMNOSUS GG 1 CAPSULE. PO SCH ×2 (08:17→21:00)
[2018-03-03 08:21] LABS: BASO # 0.1 x10^3/uL (0.0-0.2); BASO % 1 % (0-3); EOS # 0.6 x10^3/uL (0.0-0.7); EOS % 13 % (0-3); HEMATOCRIT 40.3 % (36.0-47.0); HEMOGLOBIN 13.8 g/dL (12.0-15.5); LYMPH # 1.6 x10^3/uL (1.0-4.8); LYMPH % 33 % (24-48); MEAN CORPUSCULAR HEMOGLOBIN 31 pg (25-35); MEAN CORPUSCULAR HGB CONC 34 g/dL (31-37); MEAN CORPUSCULAR VOLUME 90 fL (79-100); MONO # 0.4 x10^3/uL (0.0-1.1); MONO % 7 % (0-9); NEUT # 2.2 x10^3uL (1.8-7.7); NEUT % 45 % (31-73); PLATELET COUNT 141 x10^3/uL (140-400); RED BLOOD COUNT 4.49 x10^6/uL (3.50-5.40); RED CELL DISTRIBUTION WIDTH 13.9 % (11.5-14.5); WHITE BLOOD COUNT 4.9 x10^3/uL (4.0-11.0)
[2018-03-03 08:40] LABS: CALCIUM 7.9 mg/dL (8.5-10.1); CREATININE 0.7 mg/dL (0.6-1.0); GFR 84.5; POTASSIUM 3.5 mmol/L (3.5-5.1)
[2018-03-03] MEDS ORDERED: OXYC5TAB95 PO (09:56)
[2018-03-03] MEDS ORDERED: LIDO700A39 TD (09:56)
--- NOTE | 2018-03-03 09:59 | PDOC ---
PROGRESS NOTES Chief Complaint Chief Complaint UTI Sepsis POA with target organ damage namely enceph Metabolic encephalopathy secondary to above History lung cancer, history of hepatitis C Acute on chronic left hip pain Critical hypokalemia History of Present Illness History of Present Illness Potassium much better But then mag still low, 1.6 today Wants to go home and is about to leave AMA Physiatry has not seen, we consulted because of acute on left hip pain, history of surgery this year, claims was just discharged to home with home health after hip surgery PT OT has not worked with her, because of critical hypokalemia yesterday Patient seemingly does not want to go to SNU even if PT recommended or even if insurance would pay Initially wanted to go home, but now agreeable to stay Urine culture and sensitivity still pending-discussed with ID Plan: Follow-up urine culture sensitivity Okay to resume oxycodone fast acting but do not resume MS Contin Ambien or any other meds.-She was admitted to the ICU with metabolic encephalopathy and UTI sepsis Mag sulfate 2 g IV 1 Home meds on chart Discussed with ID and RN Vitals Vitals Vital Signs Date Time Temp Pulse Resp B/P (MAP) Pulse Ox O2 Delivery O2 Flow Rate FiO2 03/03/18 08:17 87 120/77 03/03/18 07:10 Room Air 03/03/18 07:00 98.0 16 99 98.0 Physical Exam Physical Exam GENERAL: Resting quietly LUNGS: Clear. HEART: S1, S2 regular. ABDOMEN: Obese, soft, NT EXTREMITIES: No edema, cyanosis. SKIN: warm NEUROLOGIC: Arouses to name, oriented, attention span General: Alert, Oriented X3, Cooperative, No acute distress, Other (weak looking) Heart: Regular rate, Normal S1, Normal S2 Lungs: Clear Abdomen: Normal bowel sounds, Soft, No tenderness Extremities: No clubbing, No cyanosis, No edema, Normal pulses, Other (left hip pain and tenderness) Skin: No rashes, No breakdown Labs LABS Laboratory Tests Test 03/03/18 07:47 White Blood Count 4.9 x10^3/uL (4.0-11.0) Red Blood Count 4.49 x10^6/uL (3.50-5.40) Hemoglobin 13.8 g/dL (12.0-15.5) Hematocrit 40.3 % (36.0-47.0) Mean Corpuscular Volume 90 fL (79-100) Mean Corpuscular Hemoglobin 31 pg (25-35) Mean Corpuscular Hemoglobin Concent 34 g/dL (31-37) Red Cell Distribution Width 13.9 % (11.5-14.5) Platelet Count 141 x10^3/uL (140-400) Neutrophils (%) (Auto) 45 % (31-73) Lymphocytes (%) (Auto) 33 % (24-48) Monocytes (%) (Auto) 7 % (0-9) Eosinophils (%) (Auto) 13 % (0-3) Basophils (%) (Auto) 1 % (0-3) Neutrophils # (Auto) 2.2 x10^3uL (1.8-7.7) Lymphocytes # (Auto) 1.6 x10^3/uL (1.0-4.8) Monocytes # (Auto) 0.4 x10^3/uL (0.0-1.1) Eosinophils # (Auto) 0.6 x10^3/uL (0.0-0.7) Basophils # (Auto) 0.1 x10^3/uL (0.0-0.2) Sodium Level 140 mmol/L (136-145) Potassium Level 3.5 mmol/L (3.5-5.1) Chloride Level 107 mmol/L (98-107) Carbon Dioxide Level 26 mmol/L (21-32) Anion Gap 7 (6-14) Blood Urea Nitrogen 5 mg/dL (7-20) Creatinine 0.7 mg/dL (0.6-1.0) Estimated GFR (Cockcroft-Gault) 84.5 Glucose Level 86 mg/dL (70-99) Calcium Level 7.9 mg/dL (8.5-10.1) Review of Systems Review of Systems left Hip pain, lightheaded and dizzy on ambulation, the rest of ROS 14 point negative Comment Review of Relevant I have reviewed the following items nelida (where applicable) has been applied. Labs Laboratory Tests Test 03/02/18 04:05 03/03/18 07:47 White Blood Count 6.4 x10^3/uL (4.0-11.0) 4.9 x10^3/uL (4.0-11.0) Red Blood Count 4.27 x10^6/uL (3.50-5.40) 4.49 x10^6/uL (3.50-5.40) Hemoglobin 13.1 g/dL (12.0-15.5) 13.8 g/dL (12.0-15.5) Hematocrit 38.1 % (36.0-47.0) 40.3 % (36.0-47.0) Mean Corpuscular Volume 89 fL (79-100) 90 fL (79-100) Mean Corpuscular Hemoglobin 31 pg (25-35) 31 pg (25-35) Mean Corpuscular Hemoglobin Concent 34 g/dL (31-37) 34 g/dL (31-37) Red Cell Distribution Width 13.7 % (11.5-14.5) 13.9 % (11.5-14.5) Platelet Count 138 x10^3/uL (140-400) 141 x10^3/uL (140-400) Neutrophils (%) (Auto) 52 % (31-73) 45 % (31-73) Lymphocytes (%) (Auto) 28 % (24-48) 33 % (24-48) Monocytes (%) (Auto) 7 % (0-9) 7 % (0-9) Eosinophils (%) (Auto) 13 % (0-3) 13 % (0-3) Basophils (%) (Auto) 1 % (0-3) 1 % (0-3) Neutrophils # (Auto) 3.3 x10^3uL (1.8-7.7) 2.2 x10^3uL (1.8-7.7) Lymphocytes # (Auto) 1.8 x10^3/uL (1.0-4.8) 1.6 x10^3/uL (1.0-4.8) Monocytes # (Auto) 0.4 x10^3/uL (0.0-1.1) 0.4 x10^3/uL (0.0-1.1) Eosinophils # (Auto) 0.8 x10^3/uL (0.0-0.7) 0.6 x10^3/uL (0.0-0.7) Basophils # (Auto) 0.1 x10^3/uL (0.0-0.2) 0.1 x10^3/uL (0.0-0.2) Sodium Level 142 mmol/L (136-145) 140 mmol/L (136-145) Potassium Level 2.8 mmol/L (3.5-5.1) 3.5 mmol/L (3.5-5.1) Chloride Level 110 mmol/L (98-107) 107 mmol/L (98-107) Carbon Dioxide Level 23 mmol/L (21-32) 26 mmol/L (21-32) Anion Gap 9 (6-14) 7 (6-14) Blood Urea Nitrogen 6 mg/dL (7-20) 5 mg/dL (7-20) Creatinine 0.6 mg/dL (0.6-1.0) 0.7 mg/dL (0.6-1.0) Estimated GFR (Cockcroft-Gault) 101.0 84.5 Glucose Level 104 mg/dL (70-99) 86 mg/dL (70-99) Calcium Level 7.9 mg/dL (8.5-10.1) 7.9 mg/dL (8.5-10.1) Magnesium Level 1.6 mg/dL (1.8-2.4) Laboratory Tests Test 03/03/18 07:47 White Blood Count 4.9 x10^3/uL (4.0-11.0) Red Blood Count 4.49 x10^6/uL (3.50-5.40) Hemoglobin 13.8 g/dL (12.0-15.5) Hematocrit 40.3 % (36.0-47.0) Mean Corpuscular Volume 90 fL (79-100) Mean Corpuscular Hemoglobin 31 pg (25-35) Mean Corpuscular Hemoglobin Concent 34 g/dL (31-37) Red Cell Distribution Width 13.9 % (11.5-14.5) Platelet Count 141 x10^3/uL (140-400) Neutrophils (%) (Auto) 45 % (31-73) Lymphocytes (%) (Auto) 33 % (24-48) Monocytes (%) (Auto) 7 % (0-9) Eosinophils (%) (Auto) 13 % (0-3) Basophils (%) (Auto) 1 % (0-3) Neutrophils # (Auto) 2.2 x10^3uL (1.8-7.7) Lymphocytes # (Auto) 1.6 x10^3/uL (1.0-4.8) Monocytes # (Auto) 0.4 x10^3/uL (0.0-1.1) Eosinophils # (Auto) 0.6 x10^3/uL (0.0-0.7) Basophils # (Auto) 0.1 x10^3/uL (0.0-0.2) Sodium Level 140 mmol/L (136-145) Potassium Level 3.5 mmol/L (3.5-5.1) Chloride Level 107 mmol/L (98-107) Carbon Dioxide Level 26 mmol/L (21-32) Anion Gap 7 (6-14) Blood Urea Nitrogen 5 mg/dL (7-20) Creatinine 0.7 mg/dL (0.6-1.0) Estimated GFR (Cockcroft-Gault) 84.5 Glucose Level 86 mg/dL (70-99) Calcium Level 7.9 mg/dL (8.5-10.1) Microbiology 02/28/18 Blood Culture - Preliminary, Resulted NO GROWTH AFTER 2 DAYS 02/28/18 Urine Culture - Preliminary, Resulted 02/28/18 Urine Culture Result 1 (MADY) - Preliminary, Resulted Medications Current Medications Sodium Chloride 1,000 ml @ 1,000 mls/hr 1X ONCE IV Last administered on at 19:11; Start 02/28/18 at 18:15; Stop 02/28/18 at 19:14; Status DC Sodium Chloride 1,000 ml @ 1,000 mls/hr 1X ONCE IV Last administered on at 19:12; Start 02/28/18 at 19:00; Stop 02/28/18 at 19:59; Status DC Ceftriaxone Sodium 50 ml @ 100 mls/hr 1X ONCE IV Last administered on at 19:00; Start 02/28/18 at 19:00; Stop 02/28/18 at 19:29; Status DC Potassium Chloride/Sodium Chloride 1,000 ml @ 75 mls/hr 1X ONCE IV Last administered on 02/28/18at 22:17; Start 02/28/18 at 19:15; Stop 03/01/18 at 08:34 ; Status DC Haloperidol Lactate (Haldol Inj) 2.5 mg 1X ONCE IM Last administered on at 19:45; Start 02/28/18 at 19:45; Stop 02/28/18 at 19:46; Status DC Ondansetron HCl (Zofran) 4 mg PRN Q8HRS PRN IV NAUSEA/VOMITING; Start 02/28/18 at 20:30; Stop 03/01/18 at 20:29; Status DC Potassium Chloride/Sodium Chloride 1,000 ml @ 75 mls/hr 1X ONCE IV ; Start at 20:30; Stop 03/01/18 at 09:49; Status UNV Lorazepam (Ativan) 1 mg 1X ONCE IV Last administered on 02/28/18at 22:37; Start 02/28/18 at 23:00; Stop 02/28/18 at 23:01; Status DC Lorazepam (Ativan) 1 mg PRN Q4HRS PRN IV ANXIETY / AGITATION Last administered on 03/03/18at 00:30; Start 03/01/18 at 00:00 Lorazepam (Ativan) 0.5 mg 1X ONCE IV Last administered on 03/01/18at 00:09; Start 03/01/18 at 00:00; Stop 03/01/18 at 00:01; Status DC Potassium Chloride/Sodium Chloride 1,000 ml @ 250 mls/hr Q4H IV Last administered on 03/01/18at 06:10; Start 03/01/18 at 06:30; Stop 03/01/18 at 10:29 ; Status DC Piperacillin Sod/ Tazobactam Sod 3.375 gm/Sodium Chloride 50 ml @ 100 mls/hr Q6HRS IV Last administered on 03/03/18at 06:00; Start 03/01/18 at 08:30 Amlodipine Besylate (Norvasc) 5 mg DAILY PO Last administered on 03/03/18at 08: 17; Start 03/01/18 at 11:00 Fluoxetine HCl (PROzac) 10 mg DAILY PO Last administered on 03/03/18at 08:17; Start 03/01/18 at 11:00 Furosemide (Lasix) 40 mg DAILY PO Last administered on 03/02/18at 08:30; Start 03/01/18 at 11:00 Ondansetron HCl (Zofran Odt) 4 mg PRN Q8HRS PRN PO NAUSEA, 1ST CHOICE; Start at 10:00 Zolpidem Tartrate (Ambien) 5 mg QHS PO Last administered on 03/01/18at 20:53; Start 03/01/18 at 21:00; Stop 03/02/18 at 12:57; Status DC Albuterol Sulfate (Ventolin Neb Soln) 2.5 mg PRN Q6HRS PRN NEB SHORTNESS OF BREATH Last administered on 03/03/18at 01:05; Start 03/01/18 at 10:15 Ibuprofen (Motrin) 600 mg PRN Q6HRS PRN PO MILD PAIN/INFLAMMATION Last administered on 03/03/18at 08:17; Start 03/01/18 at 10:15 Pantoprazole Sodium (Protonix) 40 mg DAILYAC PO Last administered on 03/03/18at 08:16; Start 03/01/18 at 11:00 Oxycodone HCl (Roxicodone) 10 mg PRN Q6HRS PRN PO MODERATE-SEVERE PAIN Last administered on 03/03/18at 04:24; Start 03/01/18 at 10:15 Promethazine HCl (Phenergan) 25 mg PRN Q6HRS PRN PO NAUSEA/VOMITING, 2ND CHOICE ; Start 03/01/18 at 10:15 Potassium Chloride (Klor-Con) 40 meq 1X ONCE PO Last administered on at 10:37; Start 03/01/18 at 11:00; Stop 03/01/18 at 11:01; Status DC Fentanyl (Duragesic 25mcg/ Hr Patch) 1 patch Q3DAYS TD Last administered on at 10:36; Start 03/01/18 at 11:00 Potassium Chloride (Klor-Con) 40 meq 1X ONCE PO Last administered on at 06:16; Start 03/02/18 at 06:00; Stop 03/02/18 at 06:04; Status DC Potassium Chloride (Klor-Con) 40 meq 1X ONCE PO Last administered on at 08:30; Start 03/02/18 at 08:00; Stop 03/02/18 at 08:01; Status DC Potassium Chloride (Klor-Con) 40 meq BIDWMEALS PO Last administered on 08:17; Start 03/02/18 at 10:00 Magnesium Sulfate 50 ml @ 25 mls/hr 1X ONCE IV Last administered on 03/02/18at 13:21; Start 03/02/18 at 13:30; Stop 03/02/18 at 15:29; Status DC Temazepam (Restoril) 7.5 mg PRN QHS PRN PO INSOMNIA; Start 03/02/18 at 13:00 Lactobacillus Rhamnosus (Culturelle) 1 cap BID PO Last administered on at 08:17; Start 03/02/18 at 21:00 Lidocaine (Lidoderm) 1 patch PRN DAILY PRN TD PAIN Last administered on 08:16; Start 03/02/18 at 14:45 Miscellaneous (Lidoderm Patch Removal) 1 ea QHS MC Last administered on at 19:31; Start 03/02/18 at 21:00 Magnesium Sulfate 50 ml @ 25 mls/hr 1X ONCE IV Last administered on 03/03/18at 09:31; Start 03/03/18 at 10:00; Stop 03/03/18 at 11:59 Active Scripts Active Oxycodone Hcl 5 Mg Tablet 10 Mg PO PRN Q6HRS PRN Lidocaine 1 Each Adh..patch 1 Patch TD PRN DAILY PRN 14 Days Reported FENTANYL 25mcg/hr (Fentanyl) 1 Each Patch.td72 1 Patch TP Q3DAYS Lasix (Furosemide) 40 Mg Tablet 1 Tab PO DAILY Proair Hfa Inhaler (Albuterol Sulfate) 8.5 Gm Hfa.aer.ad 1 Puff INH PRN Q6HRS PRN Promethazine Hcl 25 Mg Tablet 1 Tab PO PRN Q6HRS Ambien (Zolpidem Tartrate) 5 Mg Tablet 1 Tab PO QHS Ms Contin (Morphine Sulfate) 30 Mg Tablet.er 1 Tab PO TID Ondansetron Odt (Ondansetron) 4 Mg Tab.rapdis 1 Tab PO PRN Q8HRS PRN Ibuprofen 600 Mg Tablet 600 Mg PO PRN TID PRN Fluoxetine Hcl 10 Mg Capsule 1 Cap PO DAILY Amlodipine Besylate 5 Mg Tablet 5 Mg PO DAILY Prilosec Otc (Omeprazole Magnesium) 20 Mg Tablet.dr 1 Tab PO DAILY Vitals/I & O Vital Sign - Last 24 Hours 03/02/18 03/02/18 03/02/18 03/02/18 11:00 15:00 16:14 19:39 Temp 98.0 98.0 97.7 98.0 98.0 97.7 Pulse 89 86 87 Resp 18 18 23 B/P (MAP) 167/92 (117) 107/70 (82) 125/75 (92) Pulse Ox 98 98 97 O2 Delivery Room Air Room Air Room Air Room Air 03/02/18 03/02/18 03/02/18 03/03/18 20:00 22:26 23:45 01:10 Temp 97.9 97.9 Pulse 89 Resp 18 22 B/P (MAP) 117/76 (90) Pulse Ox 94 O2 Delivery Room Air Room Air Room Air Room Air 03/03/18 03/03/18 03/03/18 03/03/18 03:14 04:24 05:30 07:00 Temp 97.7 98.0 97.7 98.0 Pulse 75 87 Resp 22 17 17 16 B/P (MAP) 106/66 (79) 120/77 (91) Pulse Ox 95 99 O2 Delivery Room Air Room Air Room Air Room Air 03/03/18 03/03/18 07:10 08:17 Pulse 87 B/P (MAP) 120/77 O2 Delivery Room Air Intake and Output 03/02/18 03/02/18 03/03/18 15:00 23:00 07:00 Intake Total 400 ml 660 ml Balance 400 ml 660 ml NOEMI BAEZ MD Mar 03, 2018 09:59
[2018-03-03] MEDS ORDERED: MAGNESIUM SULFATE 2GM 50 ML IV ONE (10:00)
--- NOTE | 2018-03-03 10:01 | PDOC ---
Infectious Disease Note Subjective Subjective c/o left hip pain No F/C/N/V/D ROS ROS per HPI otherwise neg Vital Sign Vital Signs Vital Signs Date Time Temp Pulse Resp B/P (MAP) Pulse Ox O2 Delivery O2 Flow Rate FiO2 03/03/18 08:17 87 120/77 03/03/18 07:10 Room Air 03/03/18 07:00 98.0 16 99 98.0 Physical Exam PHYSICAL EXAM GENERAL: Lying down, relaxed appearnace LUNGS: Clear. HEART: S1, S2 regular. ABDOMEN: Obese, soft, NT EXTREMITIES: No edema, cyanosis. SKIN: warm NEUROLOGIC: Alert, responding appropriately PIV Labs Lab Laboratory Tests Test 03/03/18 07:47 White Blood Count 4.9 x10^3/uL (4.0-11.0) Red Blood Count 4.49 x10^6/uL (3.50-5.40) Hemoglobin 13.8 g/dL (12.0-15.5) Hematocrit 40.3 % (36.0-47.0) Mean Corpuscular Volume 90 fL (79-100) Mean Corpuscular Hemoglobin 31 pg (25-35) Mean Corpuscular Hemoglobin Concent 34 g/dL (31-37) Red Cell Distribution Width 13.9 % (11.5-14.5) Platelet Count 141 x10^3/uL (140-400) Neutrophils (%) (Auto) 45 % (31-73) Lymphocytes (%) (Auto) 33 % (24-48) Monocytes (%) (Auto) 7 % (0-9) Eosinophils (%) (Auto) 13 % (0-3) Basophils (%) (Auto) 1 % (0-3) Neutrophils # (Auto) 2.2 x10^3uL (1.8-7.7) Lymphocytes # (Auto) 1.6 x10^3/uL (1.0-4.8) Monocytes # (Auto) 0.4 x10^3/uL (0.0-1.1) Eosinophils # (Auto) 0.6 x10^3/uL (0.0-0.7) Basophils # (Auto) 0.1 x10^3/uL (0.0-0.2) Sodium Level 140 mmol/L (136-145) Potassium Level 3.5 mmol/L (3.5-5.1) Chloride Level 107 mmol/L (98-107) Carbon Dioxide Level 26 mmol/L (21-32) Anion Gap 7 (6-14) Blood Urea Nitrogen 5 mg/dL (7-20) Creatinine 0.7 mg/dL (0.6-1.0) Estimated GFR (Cockcroft-Gault) 84.5 Glucose Level 86 mg/dL (70-99) Calcium Level 7.9 mg/dL (8.5-10.1) Micro Microbiology 02/28/18 Blood Culture - Preliminary, Resulted NO GROWTH AFTER 2 DAY URINE CULTURE RES 1 Preliminary Gram negative rods Greater than 100,000 colony forming units per mL Objective Assessment Encephalopathy, etiology is unclear. improved Leukocytosis - improved Hypotension, which had responded to the fluids. Urinary tract infection. culture pending History of lung cancer. Left hip pain Plan Plan of Care Zosyn, wean to po soon Awaiting GNR ID Monitor labs/temp Fluids Supportive care D/w RN D/w Dr. Márquez Attending Co-Sign The patient was seen and interviewed as well as examined at the bedside. The chart was reviewed. The case was discussed. Agree with the plan of care. NIK FOWLER APRN Mar 03, 2018 10:01 TEJA ZAPATA MD Mar 03, 2018 11:56
[2018-03-03 11:00] VITALS: BP 109/75
[2018-03-03] MEDS: NAPROXEN 500 MG TABLET PO SCH ×2 (12:29→15:53)
[2018-03-03 15:00] VITALS: BP 111/68
[2018-03-03 19:52] VITALS: BP 129/75
[2018-03-03] MEDS: PATCH REMOVAL. MC SCH (21:00)
[2018-03-03] MEDS: CEFPODOXIME PROXETIL 100 MG TABLET. PO SCH (21:00)
[2018-03-03 23:03] VITALS: BP 108/72
[2018-03-04] MEDS: oxyCODONE IR 5 MG TABLET PO PRN ×4 (00:20→19:48)
[2018-03-04 03:08] VITALS: BP 122/74
[2018-03-04 04:11] LABS: CALCIUM 7.7 mg/dL (8.5-10.1); CREATININE 0.7 mg/dL (0.6-1.0); GFR 84.5; POTASSIUM 4.6 mmol/L (3.5-5.1)
[2018-03-04 04:27] LABS: BASO % 1 % (0-3); EOS # 0.6 x10^3/uL (0.0-0.7); EOS % 12 % (0-3); HEMATOCRIT 40.2 % (36.0-47.0); HEMOGLOBIN 13.6 g/dL (12.0-15.5); LYMPH # 1.6 x10^3/uL (1.0-4.8); LYMPH % 32 % (24-48); MEAN CORPUSCULAR HEMOGLOBIN 31 pg (25-35); MEAN CORPUSCULAR HGB CONC 34 g/dL (31-37); MEAN CORPUSCULAR VOLUME 91 fL (79-100); MONO # 0.4 x10^3/uL (0.0-1.1); MONO % 8 % (0-9); NEUT # 2.4 x10^3uL (1.8-7.7); NEUT % 48 % (31-73); PLATELET COUNT 154 x10^3/uL (140-400); RED BLOOD COUNT 4.44 x10^6/uL (3.50-5.40); RED CELL DISTRIBUTION WIDTH 14.3 % (11.5-14.5); WHITE BLOOD COUNT 5.1 x10^3/uL (4.0-11.0)
[2018-03-04 07:41] VITALS: BP 120/77
[2018-03-04] MEDS: NAPROXEN 500 MG TABLET PO SCH ×2 (08:00→18:08)
--- NOTE | 2018-03-04 08:15 | DISCH ---
DISCHARGE WITH HOME HEALTH DISCHARGE INFORMATION: Condition on Discharge: Stable CODE STATUS: Code Status: Full HOME HEALTH: Face to Face: I certify this patient is under my care and that I, or a nurse practitioner or physician's physiotherapy assistant working with me, had a face to face encounter that meets the physician face to face encounter requirements with this patient on []. Medical Complications: Falls Physical Therapy For: Evalulation/Treatment Occupational Therapy For: Evaluation/Treatment Home Health Aide For: Self-care POST DISCHARGE ORDERS: Activity Instructions for Disc: Activity as tolerated Weight Bearing Status after Di: As tolerated DIET AFTER DISCHARGE: Regular Wound/Incision Care: Ice to area for comfort CHECKS AFTER DISCHARGE: Checks after discharge: Check blood press - daily TREATMENT/EQUIPMENT ORDERS: Adaptive Equipment Issued: None CERTIFICATION STATEMENT: Certification Statement: Certification Statement: Based on the above finding, I certify that this patient is confined to the home and needs intermittent mcfp care, physical therapy and/or speech therapy, or continues to need occupational therapy.~ This patient is under my care, and I have initiated the establishment of the plan of care.~ This patient will be followed by myself or a community physician who will periodically review the plan of care. Home Meds Active Scripts Oxycodone Hcl (OXYCODONE HCL) 5 Mg Tablet, 10 MG PO PRN Q6HRS PRN for PAIN, #20 TAB Prov:NOEMI BAEZ MD 03/03/18 Lidocaine (Lidocaine) 1 Each Adh..patch, 1 PATCH TD PRN DAILY PRN for PAIN for 14 Days, PATCH Prov:NOEMI BAEZ MD 03/03/18 Reported Medications Fentanyl (FENTANYL 25mcg/hr) 1 Each Patch.td72, 1 PATCH TP Q3DAYS, #10 PATCH 03/01/18 Furosemide (LASIX) 40 Mg Tablet, 1 TAB PO DAILY, #90 TAB 1 Refill 12/15/17 Albuterol Sulfate (PROAIR HFA INHALER) 8.5 Gm Hfa.aer.ad, 1 PUFF INH PRN Q6HRS PRN for SHORTNESS OF BREATH, INHALER 0 Refills 12/13/17 Promethazine Hcl (PROMETHAZINE HCL) 25 Mg Tablet, 1 TAB PO PRN Q6HRS, #20 TAB 12/13/17 Zolpidem Tartrate (AMBIEN) 5 Mg Tablet, 1 TAB PO QHS, #30 TAB 2 Refills 12/13/17 Morphine Sulfate Er (MS CONTIN) 30 Mg Tablet.er, 1 TAB PO TID, #90 TAB 12/13/17 Ondansetron (ONDANSETRON ODT) 4 Mg Tab.rapdis, 1 TAB PO PRN Q8HRS PRN for NAUSEA , #16 TAB 12/13/17 Ibuprofen (IBUPROFEN) 600 Mg Tablet, 600 MG PO PRN TID PRN for INFLAMMATION, TAB 12/13/17 Fluoxetine Hcl (FLUOXETINE HCL) 10 Mg Capsule, 1 CAP PO DAILY, #30 CAP 2 Refills 12/13/17 Amlodipine Besylate (AMLODIPINE BESYLATE) 5 Mg Tablet, 5 MG PO DAILY, TAB 12/13/17 Omeprazole Magnesium (PRILOSEC OTC) 20 Mg Tablet.dr, 1 TAB PO DAILY, #30 TAB 3 Refills 12/13/17 Discontinued Reported Medications Fluoxetine Hcl (PROZAC) 10 Mg Capsule, 10 MG PO DAILY, CAP 12/14/17 NOEMI BAEZ MD Mar 04, 2018 08:15
[2018-03-04] MEDS ORDERED: CIPR500T PO (08:17)
--- NOTE | 2018-03-04 08:18 | PDOC ---
Infectious Disease Note Subjective: Subjective Pt denies any complaints though tearful as her sister recently No F/C/N/V/D /abdo pain ROS: ROS Negative otherwise Vital Signs: Vital Signs Vital Signs Date Time Temp Pulse Resp B/P (MAP) Pulse Ox O2 Delivery O2 Flow Rate FiO2 03/04/18 07:41 97.3 87 18 120/77 (91) 96 Room Air 97.3 Physical Exam: PHYSICAL EXAM GENERAL: Lying down, relaxed appearnace LUNGS: Clear. HEART: S1, S2 regular. ABDOMEN: Obese, soft, NT EXTREMITIES: No edema, cyanosis. SKIN: warm NEUROLOGIC: Alert, responding appropriately PIV Medications: Inpatient Meds: Current Medications Medications (Trade) Dose Ordered Sig/Amanda Start Time Stop Time Status Last Admin Dose Admin Albuterol Sulfate (Ventolin Neb Soln) 2.5 mg PRN Q6HRS PRN 03/01/18 10:15 03/03/18 01:05 2.5 MG Amlodipine Besylate (Norvasc) 5 mg DAILY 03/01/18 11:00 03/03/18 08:17 5 MG Cefpodoxime Proxetil (Vantin) 200 mg BID 03/03/18 21:00 03/03/18 21:00 200 MG Ceftriaxone Sodium 50 ml @ 100 mls/hr 1X ONCE 02/28/18 19:00 02/28/18 19:29 DC 02/28/18 19:00 100 MLS/HR Fentanyl (Duragesic 25mcg/ Hr Patch) 1 patch Q3DAYS 03/01/18 11:00 03/01/18 10:36 1 PATCH Fluoxetine HCl (PROzac) 10 mg DAILY 03/01/18 11:00 03/03/18 08:17 10 MG Furosemide (Lasix) 40 mg DAILY 03/01/18 11:00 03/02/18 08:30 40 MG Haloperidol Lactate (Haldol Inj) 2.5 mg 1X ONCE 02/28/18 19:45 02/28/18 19:46 DC 02/28/18 19:45 2.5 MG Ibuprofen (Motrin) 600 mg PRN Q6HRS PRN 03/01/18 10:15 03/03/18 12:18 DC 03/03/18 08:17 600 MG Lactobacillus Rhamnosus (Culturelle) 1 cap BID 03/02/18 21:00 03/03/18 21:00 1 CAP Lidocaine (Lidoderm) 1 patch PRN DAILY PRN 03/02/18 14:45 03/03/18 08:16 1 PATCH Lorazepam (Ativan) 0.5 mg 1X ONCE 03/01/18 00:00 03/01/18 00:01 DC 03/01/18 00:09 0.5 MG Magnesium Sulfate 50 ml @ 25 mls/hr 1X ONCE 03/03/18 10:00 03/03/18 11:59 DC 03/03/18 09:31 25 MLS/HR Miscellaneous (Lidoderm Patch Removal) 1 ea QHS 03/02/18 21:00 03/03/18 21:00 1 EA Naproxen (Naprosyn) 500 mg BIDWMEALS 03/03/18 12:30 03/03/18 15:53 500 MG Ondansetron HCl (Zofran Odt) 4 mg PRN Q8HRS PRN 03/01/18 10:00 Ondansetron HCl (Zofran) 4 mg PRN Q8HRS PRN 02/28/18 20:30 03/01/18 20:29 DC Oxycodone HCl (Roxicodone) 10 mg PRN Q6HRS PRN 03/01/18 10:15 03/04/18 06:10 10 MG Pantoprazole Sodium (Protonix) 40 mg DAILYAC 03/01/18 11:00 03/03/18 08:16 40 MG Piperacillin Sod/ Tazobactam Sod 3.375 gm/Sodium Chloride 50 ml @ 100 mls/hr Q6HRS 03/01/18 08:30 03/03/18 12:10 DC 03/03/18 06:00 100 MLS/HR Potassium Chloride/Sodium Chloride 1,000 ml @ 250 mls/hr Q4H 03/01/18 06:30 03/01/18 10:29 DC 03/01/18 06:10 250 MLS/HR Potassium Chloride (Klor-Con) 40 meq BIDWMEALS 03/02/18 10:00 03/03/18 15:53 40 MEQ Promethazine HCl (Phenergan) 25 mg PRN Q6HRS PRN 03/01/18 10:15 Sodium Chloride 1,000 ml @ 1,000 mls/hr 1X ONCE 02/28/18 19:00 02/28/18 19:59 DC 02/28/18 19:12 1,000 MLS/HR Temazepam (Restoril) 7.5 mg PRN QHS PRN 03/02/18 13:00 Zolpidem Tartrate (Ambien) 5 mg QHS 03/01/18 21:00 03/02/18 12:57 DC 03/01/18 20:53 5 MG Labs: Lab Laboratory Tests Test 03/04/18 03:00 White Blood Count 5.1 x10^3/uL (4.0-11.0) Red Blood Count 4.44 x10^6/uL (3.50-5.40) Hemoglobin 13.6 g/dL (12.0-15.5) Hematocrit 40.2 % (36.0-47.0) Mean Corpuscular Volume 91 fL (79-100) Mean Corpuscular Hemoglobin 31 pg (25-35) Mean Corpuscular Hemoglobin Concent 34 g/dL (31-37) Red Cell Distribution Width 14.3 % (11.5-14.5) Platelet Count 154 x10^3/uL (140-400) Neutrophils (%) (Auto) 48 % (31-73) Lymphocytes (%) (Auto) 32 % (24-48) Monocytes (%) (Auto) 8 % (0-9) Eosinophils (%) (Auto) 12 % (0-3) Basophils (%) (Auto) 1 % (0-3) Neutrophils # (Auto) 2.4 x10^3uL (1.8-7.7) Lymphocytes # (Auto) 1.6 x10^3/uL (1.0-4.8) Monocytes # (Auto) 0.4 x10^3/uL (0.0-1.1) Eosinophils # (Auto) 0.6 x10^3/uL (0.0-0.7) Basophils # (Auto) 0.0 x10^3/uL (0.0-0.2) Sodium Level 144 mmol/L (136-145) Potassium Level 4.6 mmol/L (3.5-5.1) Chloride Level 113 mmol/L (98-107) Carbon Dioxide Level 23 mmol/L (21-32) Anion Gap 8 (6-14) Blood Urea Nitrogen 9 mg/dL (7-20) Creatinine 0.7 mg/dL (0.6-1.0) Estimated GFR (Cockcroft-Gault) 84.5 Glucose Level 105 mg/dL (70-99) Calcium Level 7.7 mg/dL (8.5-10.1) Magnesium Level 2.2 mg/dL (1.8-2.4) Micro RUN DATE: 03/03/18 PAGE 1 RUN TIME: 3192 [facility] [address] [place] [address] Rasheed Godfrey M.D., Buying Agent PATIENT: BRANDON PORTER ACCT: [id number] LOC: [address] [place] [address] U : [id number] AGE/SX: 63/F ROOM: [facility] REG : 02/28/[address]: KY ARORA MD : 1955 BED: 1 DIS : STATUS: ADM IN TLOC: SPEC #: [id number] LISA: 02/28/18 STATUS: COMP REQ #: [id number] RECD: 02/28/[address]: MARCELINO SPANGLER APRN SOURCE: STRA CATH ENTR: 02/28/[address] [facility] [address]: [facility] C[facility] ORDERED: URINE CULTURE Procedure Result URINE CULTURE Final Final report URINE CULTURE RES 1 Final Klebsiella pneumoniae Greater than 100,000 colony forming units per mL Cefazolin <=4 ug/mL Cefazolin with an MADY <=16 predicts susceptibility to the oral agents cefaclor, cefdinir, cefpodoxime, cefprozil, cefuroxime, cephalexin, and loracarbef when used for therapy of uncomplicated urinary tract infections due to E. coli, Klebsiella pneumoniae, and Proteus mirabilis. ANTIMICROBIAL SUSCEPTIBILITY Final Comment S = Susceptible; I = Intermediate; R = Resistant P = Positive; N = Negative MICS are expressed in micrograms per mL Antibiotic RSLT#1 RSLT#2 RSLT#3 RSLT#4 Amoxicillin/Clavulanic Acid S<=2 Ampicillin R>=32 Cefepime S<=0.12 Ceftriaxone S<=0.25 Cefuroxime S =2 Ciprofloxacin S<=0.25 Ertapenem S<=0.12 Gentamicin S<=1 Imipenem S<=0.25 Levofloxacin S<=0.12 Meropenem S<=0.25 Nitrofurantoin S<=16 Piperacillin/Tazobactam S<=4 Tetracycline S<=1 Tobramycin S<=1 Trimethoprim/Sulfa S<=20 Performed at: DA - [facility] [address], [place], [place] [id number] CONTINUED ON NEXT PAGE RUN DATE: 03/03/18 PAGE 2 RUN TIME: 1710 [facility] [address] [facility] [place] [address] Rasheed Godfrey M.D., Buying Agent SPEC: [id number] PATIENT: BRANDON PORTER [id number] ( Continued) Procedure Result ANTIMICROBIAL SUSCEPTIBILITY Final (continued) Engineering Technical Analyst: MIN Oh MD, Phone: [phone] Objective: Assessment: Encephalopathy, etiology is unclear. improved Leukocytosis - improved Urinary tract infection. Klebsiella History of lung cancer. Left hip pain Plan: Plan of Care cont vantin for a total of 10 days probiotics supportive care CHRISS ZAPATA MD Mar 04, 2018 08:18
--- NOTE | 2018-03-04 09:23 | CONS ---
DATE OF CONSULTATION: 03/04/2018 ATTENDING PHYSICIAN: Dr. Márquez. REASON FOR CONSULTATION: The patient was seen at the request of Dr. Márquez for rehab evaluation about her left hip pain. HISTORY OF PRESENT ILLNESS: This is a 63-year-old female, admitted on 03/01/2018 with mental status change. She was screaming in her apartment, found down by EMS with hypotension and metabolic encephalopathy, also with urinary tract infection with sepsis in the Emergency Room. The patient with known carcinoma of the lung, hepatitis C positive, chronic lower back pain with sciatica, not known allergic to any medication. Family history of diabetes mellitus. 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 The patient lives in a duplex home, had stairs to manage to get to the basement where washer and dryer are located. The patient had intertrochanteric fracture, open reduction and internal fixation done in December of this year for left hip fracture, and she was seen since then at [facility] with altered mental status and was told that she does not have complete union of the fracture. The patient is status post appendectomy, , oophorectomy, tonsillectomy, cirrhosis of liver, previous pneumonia. She had lumbar spine surgery done in the past. PHYSICAL EXAMINATION: Today revealed a middle-aged female. She is alert, oriented to time, place, person and circumstance and follows commands appropriately. She is protecting her left hip. She keeps her left hip and left knee in a position of flexion. She had some limitation of left hip joint rotational movements. She had crepitus on range of motion of her right knee joint. She had 5/5 grade muscle strength in her extremities and deep tendon reflexes are 2+ and symmetrical, and she had equal perception of touch and pinprick sensation bilaterally. She had tenderness to palpation over lumbar paraspinal muscles extending over to sacroiliac joint area. Not much tenderness to palpation at left buttock area, some tenderness to palpation over left trochanteric bursa and just distal to it. She is independent with bed mobility, and she has been getting up using a walker to the bathroom limping on her left foot. X-rays of pelvis and left hip done on 02/28/2018 revealed lucency in the subtrochanteric region of left femur along the left femoral hardware, may represent sequelae of prior trauma versus acute on chronic injury. Cross sectional imaging may be of benefit if there is a persistent clinical concern. X-ray of her left knee revealed [id number] osteoarthritis, intramedullary judit and 2 distal screws are identified within the distal femur, proximal screw demonstrated periosteal new bone formation at the head of the screw with suggestion of a fracture along the middle portion of the threaded component immediately along the margin of the intramedullary judit. Findings are indeterminate chronicity, however, likely subacute to chronic. CT scan of the brain failed to reveal any acute abnormality. Chest x-ray is within normal limits. ASSESSMENT: A middle-aged female with chronic lower back pain from degenerative disk disease and degenerative joint disease of lumbar vertebrae and fall in December, with fracture of left femoral neck intertrochanteric, status post open reduction and internal fixation with continued significant pain in left hip resulting in left knee flexion deformity and mobility and self-care limitations and continued pain in her left hip in a patient with known carcinoma of the lung, hepatitis C positive, cirrhosis of liver. RECOMMENDATIONS: To obtain CT scan of her left hip to make sure there is no new fracture. Dr. Márquez, I appreciate asking me to participate in the care of this interesting patient. I think we can let her go home if there is no evidence of any new fracture, with home health followup when medically stable. ARMIN WALKER MD DR: GETACHEW/sergey JOB#: [id number] / [id number]
[2018-03-04] MEDS: fentaNYL 25MCG/HR PATCH 1 PATCH PATCH.TD72 TD SCH (10:07)
[2018-03-04] MEDS: POTASSIUM CHLORIDE 20 MEQ TABLET.ER. PO SCH ×2 (10:09→18:08)
[2018-03-04] MEDS: FUROSEMIDE 40 MG TABLET. PO SCH (10:09)
[2018-03-04] MEDS: PANTOPRAZOLE 40 MG TABLET.DR. PO SCH (10:09)
[2018-03-04] MEDS: LACTOBACILLUS RHAMNOSUS GG 1 CAPSULE. PO SCH ×2 (10:09→19:48)
[2018-03-04] MEDS: FLUoxetine HCL 10 MG CAPSULE PO SCH (10:09)
[2018-03-04] MEDS: amLODIPine BESYLATE 5 MG TABLET PO SCH (10:09)
[2018-03-04] MEDS: CEFPODOXIME PROXETIL 100 MG TABLET. PO SCH ×2 (10:10→19:48)
--- NOTE | 2018-03-04 10:16 | RAD ---
EXAM: CT left hip DATE: 03/04/2018 9:36 AM COMPARISON: CT abdomen/pelvis and fluoroscopic images 12/11/2017, hip radiographs 12/01/2017, INDICATION: LEFT HIP PAIN, ORIF 2 MONTH AGO WITH CONTINUED PAIN. TECHNIQUE: CT of the left hip without IV contrast. 2-D reformatted sagittal and coronal images were created at the CT console workstation. FINDINGS: Postoperative changes of prior IM nail with femoral neck screw, stable in alignment. Left femoral subtrochanteric fracture is again seen with mild offset when compared to prior radiographs. However there is associated periosteal reaction/callus formation suggesting progressive healing. No discrete bony bridging is yet identified. When compared to prior exam, there is now displacement of the lesser trochanteric fragments. Small left hip joint effusion is seen. Nodular soft tissue swelling overlying the posterior lateral left hip possibly from prior subcutaneous injection. Vascular calcifications are seen. IMPRESSION: Postoperative changes of IM nail and screw fixation of the known proximal left femoral fracture is again seen with associated callus formation and periosteal reaction suggesting progressive healing. When compared to prior imaging from 11/2017, there is now displacement of the lesser trochanteric fragment with minimal offset at the subtrochanteric component and therefore acute on chronic fracture/reinjury is suspected. Electronically signed by: Fuentes Mariano MD (03/04/2018 10:13 AM) [id number]
--- NOTE | 2018-03-04 10:51 | PDOC3 ---
Discharge Summary Visit Information Date of Admission: Feb 28, 2018 Date of Discharge: Mar 04, 2018 Admitting Diagnosis Comment: UTI Sepsis POA with target organ damage namely enceph Metabolic encephalopathy secondary to above History lung cancer, history of hepatitis C Acute on chronic left hip pain Critical hypokalemia Brief Hospital Course Allergies Allergies Coded Allergies Type Severity Reaction Last Updated Verified No Known Drug Allergies 12/11/17 No Vital Signs Vital Signs Date Time Temp Pulse Resp B/P (MAP) Pulse Ox O2 Delivery O2 Flow Rate FiO2 03/04/18 10:09 87 120/77 03/04/18 10:07 Room Air 03/04/18 07:41 97.3 18 96 97.3 Lab Results Laboratory Tests Test 03/03/18 07:47 03/04/18 03:00 White Blood Count 4.9 x10^3/uL (4.0-11.0) 5.1 x10^3/uL (4.0-11.0) Red Blood Count 4.49 x10^6/uL (3.50-5.40) 4.44 x10^6/uL (3.50-5.40) Hemoglobin 13.8 g/dL (12.0-15.5) 13.6 g/dL (12.0-15.5) Hematocrit 40.3 % (36.0-47.0) 40.2 % (36.0-47.0) Mean Corpuscular Volume 90 fL (79-100) 91 fL (79-100) Mean Corpuscular Hemoglobin 31 pg (25-35) 31 pg (25-35) Mean Corpuscular Hemoglobin Concent 34 g/dL (31-37) 34 g/dL (31-37) Red Cell Distribution Width 13.9 % (11.5-14.5) 14.3 % (11.5-14.5) Platelet Count 141 x10^3/uL (140-400) 154 x10^3/uL (140-400) Neutrophils (%) (Auto) 45 % (31-73) 48 % (31-73) Lymphocytes (%) (Auto) 33 % (24-48) 32 % (24-48) Monocytes (%) (Auto) 7 % (0-9) 8 % (0-9) Eosinophils (%) (Auto) 13 % (0-3) 12 % (0-3) Basophils (%) (Auto) 1 % (0-3) 1 % (0-3) Neutrophils # (Auto) 2.2 x10^3uL (1.8-7.7) 2.4 x10^3uL (1.8-7.7) Lymphocytes # (Auto) 1.6 x10^3/uL (1.0-4.8) 1.6 x10^3/uL (1.0-4.8) Monocytes # (Auto) 0.4 x10^3/uL (0.0-1.1) 0.4 x10^3/uL (0.0-1.1) Eosinophils # (Auto) 0.6 x10^3/uL (0.0-0.7) 0.6 x10^3/uL (0.0-0.7) Basophils # (Auto) 0.1 x10^3/uL (0.0-0.2) 0.0 x10^3/uL (0.0-0.2) Sodium Level 140 mmol/L (136-145) 144 mmol/L (136-145) Potassium Level 3.5 mmol/L (3.5-5.1) 4.6 mmol/L (3.5-5.1) Chloride Level 107 mmol/L (98-107) 113 mmol/L (98-107) Carbon Dioxide Level 26 mmol/L (21-32) 23 mmol/L (21-32) Anion Gap 7 (6-14) 8 (6-14) Blood Urea Nitrogen 5 mg/dL (7-20) 9 mg/dL (7-20) Creatinine 0.7 mg/dL (0.6-1.0) 0.7 mg/dL (0.6-1.0) Estimated GFR (Cockcroft-Gault) 84.5 84.5 Glucose Level 86 mg/dL (70-99) 105 mg/dL (70-99) Calcium Level 7.9 mg/dL (8.5-10.1) 7.7 mg/dL (8.5-10.1) Magnesium Level 2.2 mg/dL (1.8-2.4) Laboratory Tests Test 03/04/18 03:00 White Blood Count 5.1 x10^3/uL (4.0-11.0) Red Blood Count 4.44 x10^6/uL (3.50-5.40) Hemoglobin 13.6 g/dL (12.0-15.5) Hematocrit 40.2 % (36.0-47.0) Mean Corpuscular Volume 91 fL (79-100) Mean Corpuscular Hemoglobin 31 pg (25-35) Mean Corpuscular Hemoglobin Concent 34 g/dL (31-37) Red Cell Distribution Width 14.3 % (11.5-14.5) Platelet Count 154 x10^3/uL (140-400) Neutrophils (%) (Auto) 48 % (31-73) Lymphocytes (%) (Auto) 32 % (24-48) Monocytes (%) (Auto) 8 % (0-9) Eosinophils (%) (Auto) 12 % (0-3) Basophils (%) (Auto) 1 % (0-3) Neutrophils # (Auto) 2.4 x10^3uL (1.8-7.7) Lymphocytes # (Auto) 1.6 x10^3/uL (1.0-4.8) Monocytes # (Auto) 0.4 x10^3/uL (0.0-1.1) Eosinophils # (Auto) 0.6 x10^3/uL (0.0-0.7) Basophils # (Auto) 0.0 x10^3/uL (0.0-0.2) Sodium Level 144 mmol/L (136-145) Potassium Level 4.6 mmol/L (3.5-5.1) Chloride Level 113 mmol/L (98-107) Carbon Dioxide Level 23 mmol/L (21-32) Anion Gap 8 (6-14) Blood Urea Nitrogen 9 mg/dL (7-20) Creatinine 0.7 mg/dL (0.6-1.0) Estimated GFR (Cockcroft-Gault) 84.5 Glucose Level 105 mg/dL (70-99) Calcium Level 7.7 mg/dL (8.5-10.1) Magnesium Level 2.2 mg/dL (1.8-2.4) Brief Hospital Course Ms. Herrera is a 63 old white female who has chronic left hip pain from previous surgery, admitted to the ICU because of encephalopathy sepsis with UTI, encephalopathy most likely sec to opiates. She stayed maybe only overnight or 2 at ICU, I inherited her on the sixth floor. She ended up having Klebsiella UTI which is almost pansensitive except to ampicillin. She has no known drug allergies, I am Rxing Cipro. Comanage with ID. Encephalopathy has resolved. But she continued to have left hip pain hence physiatry was consulted and ordered CAT scan. We have reviewed both together the films of the x-ray hip, he had no further recs as of now. So still okay to go home with home health as per recommended by PT if CAT scan is that not remarkable. I did Rx some Lidoderm patch low-dose oxycodone and Cipro on chart. Consults performed physiatry, infectious disease Procedures performed none Discharge disposition home with home health Discharge time greater than 32 minutes. 50% discharge education counseling, discussed with RN and social work etc. patient seen and examined Discharge Information Condition at Discharge: Improved, Stable Disposition/Orders: D/C to Home w/ HH Scheduled Amlodipine Besylate (Amlodipine Besylate) 5 Mg Tablet, 5 MG PO DAILY, (Reported) Entered as Reported by: VINCENT OCHOA on 12/13/17 0932 Last Action: Continued on 03/01/18 1004 by TIFFANIE LOPEZ Ciprofloxacin Hcl (Ciprofloxacin Hcl) 500 Mg Tablet, 1 TAB PO BID, #20 Prescribed by: NOEMI BAEZ on 03/04/18 0817 Fentanyl (FENTANYL 25mcg/hr) 1 Each Patch.td72, 1 PATCH TP Q3DAYS, #10 (Reported ) Entered as Reported by: TIFFANIE LOPEZ on 03/01/18 1006 Last Taken: Unknown Dose on 02/28/18 Last Action: Continued on 03/01/18 1007 by TIFFANIE LOPEZ Fluoxetine Hcl (Fluoxetine Hcl) 10 Mg Capsule, 1 CAP PO DAILY, #30 Ref 2 ( Reported) Entered as Reported by: VINCENT OCHOA on 12/13/17 0932 Last Action: Continued on 03/01/18 1004 by TIFFANIE LOPEZ Furosemide (Lasix) 40 Mg Tablet, 1 TAB PO DAILY, #90 Ref 1 (Reported) Entered as Reported by: Abbi Fofana on 12/15/17 1223 Last Action: Continued on 03/01/18 1004 by TIFFANIE LOPEZ Morphine Sulfate Er (Ms Contin) 30 Mg Tablet.er, 1 TAB PO TID, #90 (Reported) Entered as Reported by: VINCENT OCHOA on 12/13/17931 Omeprazole Magnesium (Prilosec Otc) 20 Mg Tablet.dr, 1 TAB PO DAILY, #30 Ref 3 ( Reported) Entered as Reported by: VINCENT OCHOA on 12/13/17931 Last Action: Converted on 03/01/181003 by TIFFANIE LOPEZ Promethazine Hcl (Promethazine Hcl) 25 Mg Tablet, 1 TAB PO PRN Q6HRS, #20 ( Reported) Entered as Reported by: VINCENT OCHOA on 12/13/17931 Last Action: Converted on 03/01/181003 by TIFFANIE LOPEZ Zolpidem Tartrate (Ambien) 5 Mg Tablet, 1 TAB PO QHS, #30 Ref 2 (Reported) Entered as Reported by: VINCENT OCHOA on 12/13/17931 Last Action: Continued on 03/01/181003 by TIFFANIE LOPEZ Scheduled PRN Albuterol Sulfate (Proair Hfa Inhaler) 8.5 Gm Hfa.aer.ad, 1 PUFF INH PRN Q6HRS PRN for SHORTNESS OF BREATH, Ref 0 (Reported) Entered as Reported by: VINCENT OCHOA on 12/13/17931 Last Action: Converted on 03/01/181003 by TIFFANIE LOPEZ Ibuprofen (Ibuprofen) 600 Mg Tablet, 600 MG PO PRN TID PRN for INFLAMMATION, ( Reported) Entered as Reported by: VINCENT OCHOA on 12/13/17931 Last Action: Converted on 03/01/181003 by TIFFANIE LOPEZ Lidocaine (Lidocaine) 1 Each Adh..patch, 1 PATCH TD PRN DAILY PRN for PAIN for 14 Days Prescribed by: NOEMI BAEZ on 03/03/18955 Ondansetron (Ondansetron Odt) 4 Mg Tab.rapdis, 1 TAB PO PRN Q8HRS PRN for NAUSEA , #16 (Reported) Entered as Reported by: VINCENT OCHOA on 12/13/17931 Last Action: Continued on 03/01/181003 by TIFFANIE LOPEZ Oxycodone Hcl (Oxycodone Hcl) 5 Mg Tablet, 10 MG PO PRN Q6HRS PRN for PAIN, #20 Prescribed by: NOEMI BAEZ on 03/03/18 0956 Discontinued Medications Fluoxetine Hcl (Prozac) 10 Mg Capsule, 10 MG PO DAILY, (Reported) Entered as Reported by: SUDHIR DEGROOT on 12/14/17 0911 Last Action: Discontinued on 03/01/18 1007 by NOEMI OWEN MD Mar 04, 2018 10:51
[2018-03-04 11:05] VITALS: BP 131/75
[2018-03-04 15:08] VITALS: BP 121/83
[2018-03-04 19:45] VITALS: BP 102/73
[2018-03-04] MEDS: PATCH REMOVAL. MC SCH (19:48)
[2018-03-04 23:59] VITALS: BP 119/87
[2018-03-05 03:14] VITALS: BP 135/87
[2018-03-05] MEDS: oxyCODONE IR 5 MG TABLET PO PRN ×2 (03:15→11:07)
[2018-03-05 04:32] LABS: BASO % 1 % (0-3); EOS # 0.6 x10^3/uL (0.0-0.7); EOS % 10 % (0-3); HEMATOCRIT 42.6 % (36.0-47.0); HEMOGLOBIN 14.4 g/dL (12.0-15.5); LYMPH # 1.8 x10^3/uL (1.0-4.8); LYMPH % 31 % (24-48); MEAN CORPUSCULAR HEMOGLOBIN 31 pg (25-35); MEAN CORPUSCULAR HGB CONC 34 g/dL (31-37); MEAN CORPUSCULAR VOLUME 91 fL (79-100); MONO # 0.5 x10^3/uL (0.0-1.1); MONO % 8 % (0-9); NEUT # 3.1 x10^3uL (1.8-7.7); NEUT % 51 % (31-73); PLATELET COUNT 143 x10^3/uL (140-400); RED CELL DISTRIBUTION WIDTH 14.1 % (11.5-14.5)
[2018-03-05 05:08] LABS: CALCIUM 8.1 mg/dL (8.5-10.1); CREATININE 0.6 mg/dL (0.6-1.0); POTASSIUM 3.9 mmol/L (3.5-5.1)
[2018-03-05 07:37] VITALS: BP 123/79
[2018-03-05] MEDS: NAPROXEN 500 MG TABLET PO SCH (08:33)
[2018-03-05] MEDS: CEFPODOXIME PROXETIL 100 MG TABLET. PO SCH (08:33)
[2018-03-05] MEDS: FLUoxetine HCL 10 MG CAPSULE PO SCH (08:34)
[2018-03-05] MEDS: LACTOBACILLUS RHAMNOSUS GG 1 CAPSULE. PO SCH (08:34)
[2018-03-05] MEDS: POTASSIUM CHLORIDE 20 MEQ TABLET.ER. PO SCH (08:34)
[2018-03-05] MEDS: amLODIPine BESYLATE 5 MG TABLET PO SCH (08:34)
[2018-03-05] MEDS: PANTOPRAZOLE 40 MG TABLET.DR. PO SCH (08:34)
[2018-03-05] MEDS: FUROSEMIDE 40 MG TABLET. PO SCH (08:35)
--- NOTE | 2018-03-05 08:37 | PDOC ---
Infectious Disease Note Subjective: Subjective Pt C/O LT hip pain and knee pain some nausea, no vomiting No F/C/D /abdo pain ROS: ROS Negative otherwise Vital Signs: Vital Signs Vital Signs Date Time Temp Pulse Resp B/P (MAP) Pulse Ox O2 Delivery O2 Flow Rate FiO2 03/05/18 07:37 97.6 94 18 123/79 (94) 98 Room Air 97.6 Physical Exam: PHYSICAL EXAM GENERAL: Lying down Heent no icterus LUNGS: Clear. HEART: S1, S2 regular. ABDOMEN: Obese, soft, NT EXTREMITIES: No edema, cyanosis. Lt hip pain incision site healed no overlying redness or warmth SKIN: warm NEUROLOGIC: Alert, responding appropriately PIV Medications: Inpatient Meds: Current Medications Medications (Trade) Dose Ordered Sig/Amanda Start Time Stop Time Status Last Admin Dose Admin Albuterol Sulfate (Ventolin Neb Soln) 2.5 mg PRN Q6HRS PRN 03/01/18 10:15 03/03/18 01:05 2.5 MG Amlodipine Besylate (Norvasc) 5 mg DAILY 03/01/18 11:00 03/04/18 10:09 5 MG Cefpodoxime Proxetil (Vantin) 200 mg BID 03/03/18 21:00 03/04/18 19:48 200 MG Ceftriaxone Sodium 50 ml @ 100 mls/hr 1X ONCE 02/28/18 19:00 02/28/18 19:29 DC 02/28/18 19:00 100 MLS/HR Fentanyl (Duragesic 25mcg/ Hr Patch) 1 patch Q3DAYS 03/01/18 11:00 03/04/18 10:07 1 PATCH Fluoxetine HCl (PROzac) 10 mg DAILY 03/01/18 11:00 03/04/18 10:09 10 MG Furosemide (Lasix) 40 mg DAILY 03/01/18 11:00 03/04/18 10:09 40 MG Haloperidol Lactate (Haldol Inj) 2.5 mg 1X ONCE 02/28/18 19:45 02/28/18 19:46 DC 02/28/18 19:45 2.5 MG Ibuprofen (Motrin) 600 mg PRN Q6HRS PRN 03/01/18 10:15 03/03/18 12:18 DC 03/03/18 08:17 600 MG Lactobacillus Rhamnosus (Culturelle) 1 cap BID 03/02/18 21:00 03/04/18 19:48 1 CAP Lidocaine (Lidoderm) 1 patch PRN DAILY PRN 03/02/18 14:45 03/03/18 08:16 1 PATCH Lorazepam (Ativan) 0.5 mg 1X ONCE 03/01/18 00:00 03/01/18 00:01 DC 03/01/18 00:09 0.5 MG Magnesium Sulfate 50 ml @ 25 mls/hr 1X ONCE 03/03/18 10:00 03/03/18 11:59 DC 03/03/18 09:31 25 MLS/HR Miscellaneous (Lidoderm Patch Removal) 1 ea QHS 03/02/18 21:00 03/03/18 21:00 1 EA Naproxen (Naprosyn) 500 mg BIDWMEALS 03/03/18 12:30 03/04/18 18:08 500 MG Ondansetron HCl (Zofran Odt) 4 mg PRN Q8HRS PRN 03/01/18 10:00 Ondansetron HCl (Zofran) 4 mg PRN Q8HRS PRN 02/28/18 20:30 03/01/18 20:29 DC Oxycodone HCl (Roxicodone) 10 mg PRN Q6HRS PRN 03/01/18 10:15 03/05/18 03:15 10 MG Pantoprazole Sodium (Protonix) 40 mg DAILYAC 03/01/18 11:00 03/04/18 10:09 40 MG Piperacillin Sod/ Tazobactam Sod 3.375 gm/Sodium Chloride 50 ml @ 100 mls/hr Q6HRS 03/01/18 08:30 03/03/18 12:10 DC 03/03/18 06:00 100 MLS/HR Potassium Chloride/Sodium Chloride 1,000 ml @ 250 mls/hr Q4H 03/01/18 06:30 03/01/18 10:29 DC 03/01/18 06:10 250 MLS/HR Potassium Chloride (Klor-Con) 40 meq BIDWMEALS 03/02/18 10:00 03/04/18 18:08 40 MEQ Promethazine HCl (Phenergan) 25 mg PRN Q6HRS PRN 03/01/18 10:15 Sodium Chloride 1,000 ml @ 1,000 mls/hr 1X ONCE 02/28/18 19:00 02/28/18 19:59 DC 02/28/18 19:12 1,000 MLS/HR Temazepam (Restoril) 7.5 mg PRN QHS PRN 03/02/18 13:00 Zolpidem Tartrate (Ambien) 5 mg QHS 03/01/18 21:00 03/02/18 12:57 DC 03/01/18 20:53 5 MG Labs: Lab Laboratory Tests Test 03/05/18 03:20 03/05/18 03:25 Sodium Level 139 mmol/L (136-145) Potassium Level 3.9 mmol/L (3.5-5.1) Chloride Level 106 mmol/L (98-107) Carbon Dioxide Level 24 mmol/L (21-32) Anion Gap 9 (6-14) Blood Urea Nitrogen 9 mg/dL (7-20) Creatinine 0.6 mg/dL (0.6-1.0) Estimated GFR (Cockcroft-Gault) 101.0 Glucose Level 105 mg/dL (70-99) Calcium Level 8.1 mg/dL (8.5-10.1) White Blood Count 6.0 x10^3/uL (4.0-11.0) Red Blood Count 4.70 x10^6/uL (3.50-5.40) Hemoglobin 14.4 g/dL (12.0-15.5) Hematocrit 42.6 % (36.0-47.0) Mean Corpuscular Volume 91 fL (79-100) Mean Corpuscular Hemoglobin 31 pg (25-35) Mean Corpuscular Hemoglobin Concent 34 g/dL (31-37) Red Cell Distribution Width 14.1 % (11.5-14.5) Platelet Count 143 x10^3/uL (140-400) Neutrophils (%) (Auto) 51 % (31-73) Lymphocytes (%) (Auto) 31 % (24-48) Monocytes (%) (Auto) 8 % (0-9) Eosinophils (%) (Auto) 10 % (0-3) Basophils (%) (Auto) 1 % (0-3) Neutrophils # (Auto) 3.1 x10^3uL (1.8-7.7) Lymphocytes # (Auto) 1.8 x10^3/uL (1.0-4.8) Monocytes # (Auto) 0.5 x10^3/uL (0.0-1.1) Eosinophils # (Auto) 0.6 x10^3/uL (0.0-0.7) Basophils # (Auto) 0.0 x10^3/uL (0.0-0.2) Micro RUN DATE: 03/03/18 PAGE 1 RUN TIME: 1701 [facility] [address] [place] [address] Rasheed Godfrey M.D., Junior Art Director PATIENT: BRANDON PORTER ACCT: [id number] LOC: [address] [place] [address] U : [id number] AGE/SX: 63/F ROOM: [facility] REG : 02/28/[address]: KY ARORA MD : 1955 BED: 1 DIS : STATUS: ADM IN TLOC: SPEC #: [id number] LISA: 02/28/18 STATUS: COMP REQ #: [id number] RECD: 02/28/[address]: MARCELINO SPANGLER APRN SOURCE: STRA CATH ENTR: 02/28/[address] [facility] [address]: LUCA HOPKINS MD SPDC: STR CATH ORDERED: URINE CULTURE Procedure Result URINE CULTURE Final Final report URINE CULTURE RES 1 Final Klebsiella pneumoniae Greater than 100,000 colony forming units per mL Cefazolin <=4 ug/mL Cefazolin with an MADY <=16 predicts susceptibility to the oral agents cefaclor, cefdinir, cefpodoxime, cefprozil, cefuroxime, cephalexin, and loracarbef when used for therapy of uncomplicated urinary tract infections due to E. coli, Klebsiella pneumoniae, and Proteus mirabilis. ANTIMICROBIAL SUSCEPTIBILITY Final Comment S = Susceptible; I = Intermediate; R = Resistant P = Positive; N = Negative MICS are expressed in micrograms per mL Antibiotic RSLT#1 RSLT#2 RSLT#3 RSLT#4 Amoxicillin/Clavulanic Acid S<=2 Ampicillin R>=32 Cefepime S<=0.12 Ceftriaxone S<=0.25 Cefuroxime S =2 Ciprofloxacin S<=0.25 Ertapenem S<=0.12 Gentamicin S<=1 Imipenem S<=0.25 Levofloxacin S<=0.12 Meropenem S<=0.25 Nitrofurantoin S<=16 Piperacillin/Tazobactam S<=4 Tetracycline S<=1 Tobramycin S<=1 Trimethoprim/Sulfa S<=20 Performed at: DA - [facility] [address] [facility] [address], [place], [place] [id number] CONTINUED ON NEXT PAGE RUN DATE: 03/03/18 PAGE 2 RUN TIME: 14[address] [facility] [address] [facility] [place] [address] Rasheed Godfrey M.D., Junior Art Director SPEC: [id number] PATIENT: BRANDON PORTER [id number] ( Continued) Procedure Result ANTIMICROBIAL SUSCEPTIBILITY Final (continued) Oral And Maxillofacial Surgeon: MIN Oh MD, Phone: [phone] Objective: Assessment: Encephalopathy, etiology is unclear. improved Leukocytosis - improved Urinary tract infection. Klebsiella History of lung cancer. Left hip pain CT noted, Plan: Plan of Care cont vantin for a total of 9 days probiotics ortho is going to evaluate pt lt hip pain supportive care CHRISS ZAPATA MD Mar 05, 2018 08:37
--- NOTE | 2018-03-05 09:16 | PDOC ---
PROGRESS NOTES Subjective Subjective No new complaints. Objective Objective Vital Signs Date Time Temp Pulse Resp B/P (MAP) Pulse Ox O2 Delivery O2 Flow Rate FiO2 03/05/18 08:34 94 123/79 03/05/18 07:37 97.6 18 98 Room Air 97.6 Intake and Output 03/05/18 07:00 Intake Total 1080 ml Balance 1080 ml Intake Oral 1080 ml # Voids 5 # Bowel Movements 1 Physical Exam Physical Exam She is alert and in no acute distress and supine in bed with left hip and knee in a position of flexion. CT scan reveals the fracture fragment are held in good position by nail and judit and some callus formation. I have reviewed the films with . She can weight bear as tolerated and no jossue for further surgery at this time. Plan Plan of Care I have encouraged her to try to keep her left hip and knee in extension,to avoid fixed contracture. Home with home health follow up when medically stable. Comment Review of Relevant I have reviewed the following items nelida (where applicable) has been applied. Labs Laboratory Tests Test 03/04/18 03:00 03/05/18 03:20 03/05/18 03:25 White Blood Count 5.1 x10^3/uL (4.0-11.0) 6.0 x10^3/uL (4.0-11.0) Red Blood Count 4.44 x10^6/uL (3.50-5.40) 4.70 x10^6/uL (3.50-5.40) Hemoglobin 13.6 g/dL (12.0-15.5) 14.4 g/dL (12.0-15.5) Hematocrit 40.2 % (36.0-47.0) 42.6 % (36.0-47.0) Mean Corpuscular Volume 91 fL (79-100) 91 fL (79-100) Mean Corpuscular Hemoglobin 31 pg (25-35) 31 pg (25-35) Mean Corpuscular Hemoglobin Concent 34 g/dL (31-37) 34 g/dL (31-37) Red Cell Distribution Width 14.3 % (11.5-14.5) 14.1 % (11.5-14.5) Platelet Count 154 x10^3/uL (140-400) 143 x10^3/uL (140-400) Neutrophils (%) (Auto) 48 % (31-73) 51 % (31-73) Lymphocytes (%) (Auto) 32 % (24-48) 31 % (24-48) Monocytes (%) (Auto) 8 % (0-9) 8 % (0-9) Eosinophils (%) (Auto) 12 % (0-3) 10 % (0-3) Basophils (%) (Auto) 1 % (0-3) 1 % (0-3) Neutrophils # (Auto) 2.4 x10^3uL (1.8-7.7) 3.1 x10^3uL (1.8-7.7) Lymphocytes # (Auto) 1.6 x10^3/uL (1.0-4.8) 1.8 x10^3/uL (1.0-4.8) Monocytes # (Auto) 0.4 x10^3/uL (0.0-1.1) 0.5 x10^3/uL (0.0-1.1) Eosinophils # (Auto) 0.6 x10^3/uL (0.0-0.7) 0.6 x10^3/uL (0.0-0.7) Basophils # (Auto) 0.0 x10^3/uL (0.0-0.2) 0.0 x10^3/uL (0.0-0.2) Sodium Level 144 mmol/L (136-145) 139 mmol/L (136-145) Potassium Level 4.6 mmol/L (3.5-5.1) 3.9 mmol/L (3.5-5.1) Chloride Level 113 mmol/L (98-107) 106 mmol/L (98-107) Carbon Dioxide Level 23 mmol/L (21-32) 24 mmol/L (21-32) Anion Gap 8 (6-14) 9 (6-14) Blood Urea Nitrogen 9 mg/dL (7-20) 9 mg/dL (7-20) Creatinine 0.7 mg/dL (0.6-1.0) 0.6 mg/dL (0.6-1.0) Estimated GFR (Cockcroft-Gault) 84.5 101.0 Glucose Level 105 mg/dL (70-99) 105 mg/dL (70-99) Calcium Level 7.7 mg/dL (8.5-10.1) 8.1 mg/dL (8.5-10.1) Magnesium Level 2.2 mg/dL (1.8-2.4) Laboratory Tests Test 03/05/18 03:20 03/05/18 03:25 Sodium Level 139 mmol/L (136-145) Potassium Level 3.9 mmol/L (3.5-5.1) Chloride Level 106 mmol/L (98-107) Carbon Dioxide Level 24 mmol/L (21-32) Anion Gap 9 (6-14) Blood Urea Nitrogen 9 mg/dL (7-20) Creatinine 0.6 mg/dL (0.6-1.0) Estimated GFR (Cockcroft-Gault) 101.0 Glucose Level 105 mg/dL (70-99) Calcium Level 8.1 mg/dL (8.5-10.1) White Blood Count 6.0 x10^3/uL (4.0-11.0) Red Blood Count 4.70 x10^6/uL (3.50-5.40) Hemoglobin 14.4 g/dL (12.0-15.5) Hematocrit 42.6 % (36.0-47.0) Mean Corpuscular Volume 91 fL (79-100) Mean Corpuscular Hemoglobin 31 pg (25-35) Mean Corpuscular Hemoglobin Concent 34 g/dL (31-37) Red Cell Distribution Width 14.1 % (11.5-14.5) Platelet Count 143 x10^3/uL (140-400) Neutrophils (%) (Auto) 51 % (31-73) Lymphocytes (%) (Auto) 31 % (24-48) Monocytes (%) (Auto) 8 % (0-9) Eosinophils (%) (Auto) 10 % (0-3) Basophils (%) (Auto) 1 % (0-3) Neutrophils # (Auto) 3.1 x10^3uL (1.8-7.7) Lymphocytes # (Auto) 1.8 x10^3/uL (1.0-4.8) Monocytes # (Auto) 0.5 x10^3/uL (0.0-1.1) Eosinophils # (Auto) 0.6 x10^3/uL (0.0-0.7) Basophils # (Auto) 0.0 x10^3/uL (0.0-0.2) Microbiology 02/28/18 Blood Culture - Preliminary, Resulted NO GROWTH AFTER 4 DAYS 02/28/18 Urine Culture - Final, Complete 02/28/18 Urine Culture Result 1 (MADY) - Final, Complete 02/28/18 Antimicrobic Susceptibility - Final, Complete Medications Current Medications Sodium Chloride 1,000 ml @ 1,000 mls/hr 1X ONCE IV Last administered on at 19:11; Start 02/28/18 at 18:15; Stop 02/28/18 at 19:14; Status DC Sodium Chloride 1,000 ml @ 1,000 mls/hr 1X ONCE IV Last administered on at 19:12; Start 02/28/18 at 19:00; Stop 02/28/18 at 19:59; Status DC Ceftriaxone Sodium 50 ml @ 100 mls/hr 1X ONCE IV Last administered on at 19:00; Start 02/28/18 at 19:00; Stop 02/28/18 at 19:29; Status DC Potassium Chloride/Sodium Chloride 1,000 ml @ 75 mls/hr 1X ONCE IV Last administered on 02/28/18at 22:17; Start 02/28/18 at 19:15; Stop 03/01/18 at 08:34 ; Status DC Haloperidol Lactate (Haldol Inj) 2.5 mg 1X ONCE IM Last administered on at 19:45; Start 02/28/18 at 19:45; Stop 02/28/18 at 19:46; Status DC Ondansetron HCl (Zofran) 4 mg PRN Q8HRS PRN IV NAUSEA/VOMITING; Start 02/28/18 at 20:30; Stop 03/01/18 at 20:29; Status DC Potassium Chloride/Sodium Chloride 1,000 ml @ 75 mls/hr 1X ONCE IV ; Start at 20:30; Stop 03/01/18 at 09:49; Status UNV Lorazepam (Ativan) 1 mg 1X ONCE IV Last administered on 02/28/18at 22:37; Start 02/28/18 at 23:00; Stop 02/28/18 at 23:01; Status DC Lorazepam (Ativan) 1 mg PRN Q4HRS PRN IV ANXIETY / AGITATION Last administered on 03/05/18at 04:58; Start 03/01/18 at 00:00 Lorazepam (Ativan) 0.5 mg 1X ONCE IV Last administered on 03/01/18at 00:09; Start 03/01/18 at 00:00; Stop 03/01/18 at 00:01; Status DC Potassium Chloride/Sodium Chloride 1,000 ml @ 250 mls/hr Q4H IV Last administered on 03/01/18at 06:10; Start 03/01/18 at 06:30; Stop 03/01/18 at 10:29 ; Status DC Piperacillin Sod/ Tazobactam Sod 3.375 gm/Sodium Chloride 50 ml @ 100 mls/hr Q6HRS IV Last administered on 03/03/18at 06:00; Start 03/01/18 at 08:30; Stop at 12:10; Status DC Amlodipine Besylate (Norvasc) 5 mg DAILY PO Last administered on 03/05/18at 08: 34; Start 03/01/18 at 11:00 Fluoxetine HCl (PROzac) 10 mg DAILY PO Last administered on 03/05/18at 08:34; Start 03/01/18 at 11:00 Furosemide (Lasix) 40 mg DAILY PO Last administered on 03/05/18at 08:35; Start 03/01/18 at 11:00 Ondansetron HCl (Zofran Odt) 4 mg PRN Q8HRS PRN PO NAUSEA, 1ST CHOICE; Start at 10:00 Zolpidem Tartrate (Ambien) 5 mg QHS PO Last administered on 03/01/18at 20:53; Start 03/01/18 at 21:00; Stop 03/02/18 at 12:57; Status DC Albuterol Sulfate (Ventolin Neb Soln) 2.5 mg PRN Q6HRS PRN NEB SHORTNESS OF BREATH Last administered on 03/03/18at 01:05; Start 03/01/18 at 10:15 Ibuprofen (Motrin) 600 mg PRN Q6HRS PRN PO MILD PAIN/INFLAMMATION Last administered on 03/03/18at 08:17; Start 03/01/18 at 10:15; Stop 03/03/18 at 12:18 ; Status DC Pantoprazole Sodium (Protonix) 40 mg DAILYAC PO Last administered on 03/05/18at 08:34; Start 03/01/18 at 11:00 Oxycodone HCl (Roxicodone) 10 mg PRN Q6HRS PRN PO MODERATE-SEVERE PAIN Last administered on 03/05/18at 03:15; Start 03/01/18 at 10:15 Promethazine HCl (Phenergan) 25 mg PRN Q6HRS PRN PO NAUSEA/VOMITING, 2ND CHOICE ; Start 03/01/18 at 10:15 Potassium Chloride (Klor-Con) 40 meq 1X ONCE PO Last administered on at 10:37; Start 03/01/18 at 11:00; Stop 03/01/18 at 11:01; Status DC Fentanyl (Duragesic 25mcg/ Hr Patch) 1 patch Q3DAYS TD Last administered on at 10:07; Start 03/01/18 at 11:00 Potassium Chloride (Klor-Con) 40 meq 1X ONCE PO Last administered on at 06:16; Start 03/02/18 at 06:00; Stop 03/02/18 at 06:04; Status DC Potassium Chloride (Klor-Con) 40 meq 1X ONCE PO Last administered on at 08:30; Start 03/02/18 at 08:00; Stop 03/02/18 at 08:01; Status DC Potassium Chloride (Klor-Con) 40 meq BIDWMEALS PO Last administered on at 08:34; Start 03/02/18 at 10:00 Magnesium Sulfate 50 ml @ 25 mls/hr 1X ONCE IV Last administered on 03/02/18at 13:21; Start 03/02/18 at 13:30; Stop 03/02/18 at 15:29; Status DC Temazepam (Restoril) 7.5 mg PRN QHS PRN PO INSOMNIA; Start 03/02/18 at 13:00 Lactobacillus Rhamnosus (Culturelle) 1 cap BID PO Last administered on at 08:34; Start 03/02/18 at 21:00 Lidocaine (Lidoderm) 1 patch PRN DAILY PRN TD PAIN Last administered on at 08:16; Start 03/02/18 at 14:45 Miscellaneous (Lidoderm Patch Removal) 1 ea QHS MC Last administered on at 21:00; Start 03/02/18 at 21:00 Magnesium Sulfate 50 ml @ 25 mls/hr 1X ONCE IV Last administered on 03/03/18at 09:31; Start 03/03/18 at 10:00; Stop 03/03/18 at 11:59; Status DC Cefpodoxime Proxetil (Vantin) 200 mg BID PO Last administered on 03/05/18at 08: 33; Start 03/03/18 at 21:00 Naproxen (Naprosyn) 500 mg BIDWMEALS PO Last administered on 03/05/18at 08:33; Start 03/03/18 at 12:30 Active Scripts Active Ciprofloxacin Hcl 500 Mg Tablet 1 Tab PO BID Oxycodone Hcl 5 Mg Tablet 10 Mg PO PRN Q6HRS PRN Lidocaine 1 Each Adh..patch 1 Patch TD PRN DAILY PRN 14 Days Reported FENTANYL 25mcg/hr (Fentanyl) 1 Each Patch.td72 1 Patch TP Q3DAYS Lasix (Furosemide) 40 Mg Tablet 1 Tab PO DAILY Proair Hfa Inhaler (Albuterol Sulfate) 8.5 Gm Hfa.aer.ad 1 Puff INH PRN Q6HRS PRN Promethazine Hcl 25 Mg Tablet 1 Tab PO PRN Q6HRS Ambien (Zolpidem Tartrate) 5 Mg Tablet 1 Tab PO QHS Ms Contin (Morphine Sulfate) 30 Mg Tablet.er 1 Tab PO TID Ondansetron Odt (Ondansetron) 4 Mg Tab.rapdis 1 Tab PO PRN Q8HRS PRN Ibuprofen 600 Mg Tablet 600 Mg PO PRN TID PRN Fluoxetine Hcl 10 Mg Capsule 1 Cap PO DAILY Amlodipine Besylate 5 Mg Tablet 5 Mg PO DAILY Prilosec Otc (Omeprazole Magnesium) 20 Mg Tablet. 1 Tab PO DAILY Vitals/I & O Vital Sign - Last 24 Hours 03/04/18 03/04/18 03/04/18 03/04/18 10:07 10:09 11:05 14:07 Temp 97.5 97.5 Pulse 87 85 Resp 18 19 B/P (MAP) 120/77 131/75 (93) Pulse Ox 98 O2 Delivery Room Air Room Air Room Air 03/04/18 03/04/18 03/04/18 03/04/18 15:07 15:08 19:45 19:48 Temp 97.7 97.5 97.7 97.5 Pulse 92 103 Resp 17 18 16 B/P (MAP) 121/83 (96) 102/73 (83) Pulse Ox 95 96 O2 Delivery Room Air Room Air Room Air 03/04/18 03/04/18 03/05/18 03/05/18 20:00 23:59 03:14 03:15 Temp 98.0 97.7 98.0 97.7 Pulse 76 95 Resp 16 16 B/P (MAP) 119/87 (98) 135/87 (103) Pulse Ox 97 96 O2 Delivery Room Air Room Air Room Air Room Air 03/05/18 03/05/18 03/05/18 04:15 07:37 08:34 Temp 97.6 97.6 Pulse 94 94 Resp 18 B/P (MAP) 123/79 (94) 123/79 Pulse Ox 98 O2 Delivery Room Air Room Air Intake and Output 03/04/18 03/04/18 03/05/18 15:00 23:00 07:00 Intake Total 600 ml 480 ml Balance 600 ml 480 ml ARMIN WALKER MD Mar 05, 2018 09:15
--- NOTE | 2018-03-05 09:19 | PDOC2 ---
CONSULT Date of Consult Date of Consult DATE: 03/05/18 TIME: 09:13 Reason for Consult Reason for Consult: Left hip pain Referring Physician Referring Physician: Aubrie Identification/Chief Complaint Chief Complaint Left hip pain Source Source: Chart review, Patient History of Present Illness Reason for Visit: Patient is a pleasant 63-year-old female who underwent closed reduction and intramedullary nailing of her left hip fracture about 2 months ago. She tells me her left hip has been sore, she feels the pain laterally, worse with movement. Does radiate down the side of her leg little bit. Does not cross her knee. She did not have any problems healing her incision. She does not able to recall any drainage or redness around the incision. She tells me the hip feels warmer than her other side, it has been this way since surgery. She was admitted for altered mental status, and been treated for a urinary tract infection. Past Medical History Cardiovascular: No pertinent hx Pulmonary: COPD, Other Musculoskeletal: low back pain Past Surgical History Past Surgical History: , Tonsillectomy, Hysterectomy, Other ( intramedullary nail left hip) Family History Family History: Chronic Bronchitis, Hypertension Social History Social History: Parent ALCOHOL: social Drugs: None Current Medications Current Medications Current Medications Sodium Chloride 1,000 ml @ 1,000 mls/hr 1X ONCE IV Last administered on at 19:11; Start 02/28/18 at 18:15; Stop 02/28/18 at 19:14; Status DC Sodium Chloride 1,000 ml @ 1,000 mls/hr 1X ONCE IV Last administered on at 19:12; Start 02/28/18 at 19:00; Stop 02/28/18 at 19:59; Status DC Ceftriaxone Sodium 50 ml @ 100 mls/hr 1X ONCE IV Last administered on at 19:00; Start 02/28/18 at 19:00; Stop 02/28/18 at 19:29; Status DC Potassium Chloride/Sodium Chloride 1,000 ml @ 75 mls/hr 1X ONCE IV Last administered on 02/28/18at 22:17; Start 02/28/18 at 19:15; Stop 03/01/18 at 08:34 ; Status DC Haloperidol Lactate (Haldol Inj) 2.5 mg 1X ONCE IM Last administered on at 19:45; Start 02/28/18 at 19:45; Stop 02/28/18 at 19:46; Status DC Ondansetron HCl (Zofran) 4 mg PRN Q8HRS PRN IV NAUSEA/VOMITING; Start 02/28/18 at 20:30; Stop 03/01/18 at 20:29; Status DC Potassium Chloride/Sodium Chloride 1,000 ml @ 75 mls/hr 1X ONCE IV ; Start at 20:30; Stop 03/01/18 at 09:49; Status UNV Lorazepam (Ativan) 1 mg 1X ONCE IV Last administered on 02/28/18at 22:37; Start 02/28/18 at 23:00; Stop 02/28/18 at 23:01; Status DC Lorazepam (Ativan) 1 mg PRN Q4HRS PRN IV ANXIETY / AGITATION Last administered on 03/05/18at 04:58; Start 03/01/18 at 00:00 Lorazepam (Ativan) 0.5 mg 1X ONCE IV Last administered on 03/01/18at 00:09; Start 03/01/18 at 00:00; Stop 03/01/18 at 00:01; Status DC Potassium Chloride/Sodium Chloride 1,000 ml @ 250 mls/hr Q4H IV Last administered on 03/01/18at 06:10; Start 03/01/18 at 06:30; Stop 03/01/18 at 10:29 ; Status DC Piperacillin Sod/ Tazobactam Sod 3.375 gm/Sodium Chloride 50 ml @ 100 mls/hr Q6HRS IV Last administered on 03/03/18at 06:00; Start 03/01/18 at 08:30; Stop at 12:10; Status DC Amlodipine Besylate (Norvasc) 5 mg DAILY PO Last administered on 03/05/18at 08: 34; Start 03/01/18 at 11:00 Fluoxetine HCl (PROzac) 10 mg DAILY PO Last administered on 03/05/18at 08:34; Start 03/01/18 at 11:00 Furosemide (Lasix) 40 mg DAILY PO Last administered on 03/05/18at 08:35; Start 03/01/18 at 11:00 Ondansetron HCl (Zofran Odt) 4 mg PRN Q8HRS PRN PO NAUSEA, 1ST CHOICE; Start at 10:00 Zolpidem Tartrate (Ambien) 5 mg QHS PO Last administered on 03/01/18at 20:53; Start 03/01/18 at 21:00; Stop 03/02/18 at 12:57; Status DC Albuterol Sulfate (Ventolin Neb Soln) 2.5 mg PRN Q6HRS PRN NEB SHORTNESS OF BREATH Last administered on 03/03/18at 01:05; Start 03/01/18 at 10:15 Ibuprofen (Motrin) 600 mg PRN Q6HRS PRN PO MILD PAIN/INFLAMMATION Last administered on 03/03/18at 08:17; Start 03/01/18 at 10:15; Stop 03/03/18 at 12:18 ; Status DC Pantoprazole Sodium (Protonix) 40 mg DAILYAC PO Last administered on 03/05/18at 08:34; Start 03/01/18 at 11:00 Oxycodone HCl (Roxicodone) 10 mg PRN Q6HRS PRN PO MODERATE-SEVERE PAIN Last administered on 03/05/18at 03:15; Start 03/01/18 at 10:15 Promethazine HCl (Phenergan) 25 mg PRN Q6HRS PRN PO NAUSEA/VOMITING, 2ND CHOICE ; Start 03/01/18 at 10:15 Potassium Chloride (Klor-Con) 40 meq 1X ONCE PO Last administered on at 10:37; Start 03/01/18 at 11:00; Stop 03/01/18 at 11:01; Status DC Fentanyl (Duragesic 25mcg/ Hr Patch) 1 patch Q3DAYS TD Last administered on at 10:07; Start 03/01/18 at 11:00 Potassium Chloride (Klor-Con) 40 meq 1X ONCE PO Last administered on at 06:16; Start 03/02/18 at 06:00; Stop 03/02/18 at 06:04; Status DC Potassium Chloride (Klor-Con) 40 meq 1X ONCE PO Last administered on at 08:30; Start 03/02/18 at 08:00; Stop 03/02/18 at 08:01; Status DC Potassium Chloride (Klor-Con) 40 meq BIDWMEALS PO Last administered on 08:34; Start 03/02/18 at 10:00 Magnesium Sulfate 50 ml @ 25 mls/hr 1X ONCE IV Last administered on 03/02/18at 13:21; Start 03/02/18 at 13:30; Stop 03/02/18 at 15:29; Status DC Temazepam (Restoril) 7.5 mg PRN QHS PRN PO INSOMNIA; Start 03/02/18 at 13:00 Lactobacillus Rhamnosus (Culturelle) 1 cap BID PO Last administered on 08:34; Start 03/02/18 at 21:00 Lidocaine (Lidoderm) 1 patch PRN DAILY PRN TD PAIN Last administered on 08:16; Start 03/02/18 at 14:45 Miscellaneous (Lidoderm Patch Removal) 1 ea QHS MC Last administered on at 21:00; Start 03/02/18 at 21:00 Magnesium Sulfate 50 ml @ 25 mls/hr 1X ONCE IV Last administered on 03/03/18at 09:31; Start 03/03/18 at 10:00; Stop 03/03/18 at 11:59; Status DC Cefpodoxime Proxetil (Vantin) 200 mg BID PO Last administered on 03/05/18at 08: 33; Start 03/03/18 at 21:00 Naproxen (Naprosyn) 500 mg BIDWMEALS PO Last administered on 03/05/18at 08:33; Start 03/03/18 at 12:30 Active Scripts Active Ciprofloxacin Hcl 500 Mg Tablet 1 Tab PO BID Oxycodone Hcl 5 Mg Tablet 10 Mg PO PRN Q6HRS PRN Lidocaine 1 Each Adh..patch 1 Patch TD PRN DAILY PRN 14 Days Reported FENTANYL 25mcg/hr (Fentanyl) 1 Each Patch.td72 1 Patch TP Q3DAYS Lasix (Furosemide) 40 Mg Tablet 1 Tab PO DAILY Proair Hfa Inhaler (Albuterol Sulfate) 8.5 Gm Hfa.aer.ad 1 Puff INH PRN Q6HRS PRN Promethazine Hcl 25 Mg Tablet 1 Tab PO PRN Q6HRS Ambien (Zolpidem Tartrate) 5 Mg Tablet 1 Tab PO QHS Ms Contin (Morphine Sulfate) 30 Mg Tablet.er 1 Tab PO TID Ondansetron Odt (Ondansetron) 4 Mg Tab.rapdis 1 Tab PO PRN Q8HRS PRN Ibuprofen 600 Mg Tablet 600 Mg PO PRN TID PRN Fluoxetine Hcl 10 Mg Capsule 1 Cap PO DAILY Amlodipine Besylate 5 Mg Tablet 5 Mg PO DAILY Prilosec Otc (Omeprazole Magnesium) 20 Mg Tablet.dr 1 Tab PO DAILY Allergies Allergies: Coded Allergies: No Known Drug Allergies (Unverified , 12/11/17) ROS General: No: Chills, Night Sweats, Fatigue, Malaise, Appetite, Other PSYCHOLOGICAL ROS: No: Anxiety, Behavioral Disorder, Concentration difficultie , Decreased libido, Depression, Disorientation, Hallucinations, Hostility, Irritablity, Memory difficulties, Mood Swings, Obsessive thoughts, Physical abuse, Sexual abuse, Sleep disturbances, Suicidal ideation, Other Eyes: No Blurry vision, No Decreased vision, No Double vision, No Dry eyes, No Excessive tearing, No Eye Pain, No Itchy Eyes, No Loss of vision, No Photophobia , No Scotomata, No Uses contacts, No Uses glasses, No Other HEENT: No: Heacaches, Visual Changes, Hearing change, Nasal congestion, Nasal discharge, Oral lesions, Sinus pain, Sore Throat, Epistaxis, Sneezing, Snoring, Tinnitus, Vertigo, Vocal changes, Other ALLERGY AND IMMUNOLOGY: No: Hives, Insect Bite Sensitivity, Itchy/Watery Eyes, Nasal Congestion, Post Nasal Drip, Seasonal Allergies, Other Hematological and Lymphatic: No: Bleeding Problems, Blood Clots, Blood Transfusions, Brusing, Night Sweats, Pallor, Swollen Lymph Nodes, Other ENDOCRINE: No: Breast Changes, Galactorrhea, Hair Pattern Changes, Hot Flashes , Malaise/lethargy, Mood Swings, Palpitations, Polydipsia/polyuria, Skin Changes , Temperature Intolerance, Unexpected Weight Changes, Other Respiratory: No: Cough, Hemoptysis, Orthopnea, Pleuritic Pain, Shortness of breath, SOB with excertion, Sputum Changes, Stridor, Tachypnea, Wheezing, Other Cardiovascular: No Chest Pain, No Palpitations, No Orthopnea, No Paroxysmal Noc. Dyspnea, No Edema, No Lt Headedness, No Other Gastrointestinal: No Nausea, No Vomiting, No Abdominal Pain, No Diarrhea, No Constipation, No Melena, No Hematochezia, No Other Genitourinary: No Dysuria, No Frequency, No Incontinence, No Hematuria, No Retention, No Discharge, No Urgency, No Pain, No Flank Pain, No Other, No , No , No , No , No , No , No Musculoskeletal: Yes Joint Pain, Yes Joint Stiffness Neurological: No Behavorial Changes, No Bowel/Bladder ControlChng, No Confusion , No Dizziness, No Gait Disturbance, No Headaches, No Impaired Coord/balance, No Memory Loss, No Numbness/Tingling, No Seizures, No Speech Problems, No Tremors, No Visual Changes, No Weakness, No Other Skin: No Dry Skin, No Eczema, No Hair Changes, No Lumps, No Mole Changes, No Mottling, No Nail Changes, No Pruritus, No Rash, No Skin Lesion Changes, No Other, No Acne Physical Exam General: Alert, No acute distress HEENT: Atraumatic, EOMI Lungs: Other (respirations are unlabored with symmetric chest rise) Heart: Other (no edema in her lower extremities, dorsalis pedis 1+ and symmetric) Abdomen: Soft, No tenderness Extremities: No edema, Normal pulses Neuro: Normal speech, Strength at 5/5 X4 ext, Sensation intact Psych/Mental Status: Mental status NL, Mood NL MUSCULOSKELETAL: Other (her lateral incisions at her thigh and knee have healed well. There is a slight warmth around her left hip girdle. No pain with gentle logrolling.) Vitals VITALS Vital Signs Date Time Temp Pulse Resp B/P (MAP) Pulse Ox O2 Delivery O2 Flow Rate FiO2 03/05/18 08:34 94 123/79 03/05/18 07:37 97.6 18 98 Room Air 97.6 Labs Labs Laboratory Tests Test 03/04/18 03:00 03/05/18 03:20 03/05/18 03:25 White Blood Count 5.1 x10^3/uL (4.0-11.0) 6.0 x10^3/uL (4.0-11.0) Red Blood Count 4.44 x10^6/uL (3.50-5.40) 4.70 x10^6/uL (3.50-5.40) Hemoglobin 13.6 g/dL (12.0-15.5) 14.4 g/dL (12.0-15.5) Hematocrit 40.2 % (36.0-47.0) 42.6 % (36.0-47.0) Mean Corpuscular Volume 91 fL (79-100) 91 fL (79-100) Mean Corpuscular Hemoglobin 31 pg (25-35) 31 pg (25-35) Mean Corpuscular Hemoglobin Concent 34 g/dL (31-37) 34 g/dL (31-37) Red Cell Distribution Width 14.3 % (11.5-14.5) 14.1 % (11.5-14.5) Platelet Count 154 x10^3/uL (140-400) 143 x10^3/uL (140-400) Neutrophils (%) (Auto) 48 % (31-73) 51 % (31-73) Lymphocytes (%) (Auto) 32 % (24-48) 31 % (24-48) Monocytes (%) (Auto) 8 % (0-9) 8 % (0-9) Eosinophils (%) (Auto) 12 % (0-3) 10 % (0-3) Basophils (%) (Auto) 1 % (0-3) 1 % (0-3) Neutrophils # (Auto) 2.4 x10^3uL (1.8-7.7) 3.1 x10^3uL (1.8-7.7) Lymphocytes # (Auto) 1.6 x10^3/uL (1.0-4.8) 1.8 x10^3/uL (1.0-4.8) Monocytes # (Auto) 0.4 x10^3/uL (0.0-1.1) 0.5 x10^3/uL (0.0-1.1) Eosinophils # (Auto) 0.6 x10^3/uL (0.0-0.7) 0.6 x10^3/uL (0.0-0.7) Basophils # (Auto) 0.0 x10^3/uL (0.0-0.2) 0.0 x10^3/uL (0.0-0.2) Sodium Level 144 mmol/L (136-145) 139 mmol/L (136-145) Potassium Level 4.6 mmol/L (3.5-5.1) 3.9 mmol/L (3.5-5.1) Chloride Level 113 mmol/L (98-107) 106 mmol/L (98-107) Carbon Dioxide Level 23 mmol/L (21-32) 24 mmol/L (21-32) Anion Gap 8 (6-14) 9 (6-14) Blood Urea Nitrogen 9 mg/dL (7-20) 9 mg/dL (7-20) Creatinine 0.7 mg/dL (0.6-1.0) 0.6 mg/dL (0.6-1.0) Estimated GFR (Cockcroft-Gault) 84.5 101.0 Glucose Level 105 mg/dL (70-99) 105 mg/dL (70-99) Calcium Level 7.7 mg/dL (8.5-10.1) 8.1 mg/dL (8.5-10.1) Magnesium Level 2.2 mg/dL (1.8-2.4) Laboratory Tests Test 03/05/18 03:20 03/05/18 03:25 Sodium Level 139 mmol/L (136-145) Potassium Level 3.9 mmol/L (3.5-5.1) Chloride Level 106 mmol/L (98-107) Carbon Dioxide Level 24 mmol/L (21-32) Anion Gap 9 (6-14) Blood Urea Nitrogen 9 mg/dL (7-20) Creatinine 0.6 mg/dL (0.6-1.0) Estimated GFR (Cockcroft-Gault) 101.0 Glucose Level 105 mg/dL (70-99) Calcium Level 8.1 mg/dL (8.5-10.1) White Blood Count 6.0 x10^3/uL (4.0-11.0) Red Blood Count 4.70 x10^6/uL (3.50-5.40) Hemoglobin 14.4 g/dL (12.0-15.5) Hematocrit 42.6 % (36.0-47.0) Mean Corpuscular Volume 91 fL (79-100) Mean Corpuscular Hemoglobin 31 pg (25-35) Mean Corpuscular Hemoglobin Concent 34 g/dL (31-37) Red Cell Distribution Width 14.1 % (11.5-14.5) Platelet Count 143 x10^3/uL (140-400) Neutrophils (%) (Auto) 51 % (31-73) Lymphocytes (%) (Auto) 31 % (24-48) Monocytes (%) (Auto) 8 % (0-9) Eosinophils (%) (Auto) 10 % (0-3) Basophils (%) (Auto) 1 % (0-3) Neutrophils # (Auto) 3.1 x10^3uL (1.8-7.7) Lymphocytes # (Auto) 1.8 x10^3/uL (1.0-4.8) Monocytes # (Auto) 0.5 x10^3/uL (0.0-1.1) Eosinophils # (Auto) 0.6 x10^3/uL (0.0-0.7) Basophils # (Auto) 0.0 x10^3/uL (0.0-0.2) Images Images CAT scan from 03/04/2018 was interpreted by myself. Report was reviewed. There has been some settling, but no hardware protrusion, appropriate alignment is maintained Assessment/Plan Assessment/Plan She can purchase. PT and OT, weight-bear as tolerated. No intervention from an orthopedic standpoint as needed. There is appropriate amount of callus seen. I did discuss with her that hip pain at the side of the hip is not necessarily uncommon after hip fracture, may be related to scar tissue and should improve. She should follow up with me in 4-6 weeks. AMANUEL CORTEZ II, MD Mar 05, 2018 09:19
[2018-03-05 10:51] VITALS: BP 129/86
== END 2018-03-05 11:51 | disposition home health service (06) | DRG 871 ==
LOC: ER 17:43 → 1 WEST ICU 19:56 → 6 SOUTH 03-01 10:44
PROVIDERS: ADMIT Family Medicine; ATTEND Family Medicine
DX: A41.9 Sepsis, unspecified organism (principal); G93.41 Metabolic encephalopathy; N39.0 Urinary tract infection, site not specified; B96.1 Klebsiella pneumoniae [K. pneumoniae] as the cause of diseases classified elsewhere; E87.6 Hypokalemia; G89.29 Other chronic pain; J44.9 Chronic obstructive pulmonary disease, unspecified; K74.60 Unspecified cirrhosis of liver; M47.816 Spondylosis without myelopathy or radiculopathy, lumbar region; M17.12 Unilateral primary osteoarthritis, left knee; M25.552 Pain in left hip; Z82.49 Family history of ischemic heart disease and other diseases of the circulatory system; Z79.899 Other long term (current) drug therapy; Z82.5 Family history of asthma and other chronic lower respiratory diseases; Z83.3 Family history of diabetes mellitus; Z85.118 Personal history of other malignant neoplasm of bronchus and lung; Z87.01 Personal history of pneumonia (recurrent); Z90.49 Acquired absence of other specified parts of digestive tract; Z90.710 Acquired absence of both cervix and uterus; Z91.81 History of falling; Z90.89 Acquired absence of other organs; Z87.81 Personal history of (healed) traumatic fracture
CPT/HCPCS: 36415; 70450; 71045; 73502; 73562; 73700; 80048; 80053; 80307; 80329; 81001; 82140; 82553; 83605; 83690; 83735; 83880; 84145; 84443; 84484; 85025; 85610; 87040; 87086; 87186; 87641; 93005; 96365; 96366; 96372; G0480; G6039; J0690; J1630; J2060; J2543; J3475; J3480; J7030; J7613; 99285-25; G0479

== ENCOUNTER 2018-04-05 14:55 | Emergency (ER) | payer OTHER ==
[~2018-04-05] VITALS: Ht 165.1 cm; Wt 59.9 kg
[~2018-04-05 14:55] MED LIST changes: +CIPR500T PO; +FENT1PAT15 TP; +LIDO700A39 TD
--- NOTE | 2018-04-05 15:23 | PHYS DOC ---
Past Medical History Past Medical History: Cancer, Hepatitis, Pneumonia, Sciatica Additional Past Medical Histor: CIRRHOSIS, CHRONIC BACK/ABD. PAIN, hep c Past Surgical History: Appendectomy, , Oophorectomy, Tonsillectomy Additional Past Surgical Histo: low back sx Additional Information: Quit approximately 3 months ago Alcohol Use: None Drug Use: None Adult General Chief Complaint Chief Complaint: SHORTNESS OF BREATH [facility] HPI Patient is a 63 year old [female] who presents with [2 separate complaints. First complaint is left hip pain. Patient's proximally 3 months post hip surgery from a fracture. She reports that she continues to have difficulty moving and walking due to the pain. Increased pain with movement and walking. Patient is requiring narcotic pain patches however she is allergic to the adhesive on the pain patch. This is gotten worse over the past 4-5 days. Patient has not talked her primary care physician about this. There has been no new trauma. Second complaint is shortness of breath. Patient was diagnosed at about the time of her hip fracture with lung cancer. Patient has not seen any oncologist for this. Uncertain as to when shortness of breath became worse. Patient denies any fever, chest pain, cough. Patient is a former smoker, having stopped approximately 3 months ago. She reports worsening shortness of breath with exertion. Better with rest.] Review of Systems Review of Systems Constitutional: Denies fever or chills [] Eyes: Denies change in visual acuity, redness, or eye pain [] HENT: Denies nasal congestion or sore throat [] Respiratory: Denies cough or shortness of breath [] Cardiovascular: No additional information not addressed in HPI [] GI: Denies abdominal pain, nausea, vomiting, bloody stools or diarrhea [] : Denies dysuria or hematuria [] Musculoskeletal: Denies back pain or joint pain [] Integument: Denies rash or skin lesions [] Neurologic: Denies headache, focal weakness or sensory changes [] Endocrine: Denies polyuria or polydipsia [] All other systems were reviewed and found to be within normal limits, except as documented in this note. Current Medications Current Medications Current Medications Medications (Trade) Dose Ordered Sig/Amanda Start Time Stop Time Status Last Admin Dose Admin Albuterol/ Ipratropium (Duoneb) 3 ml 1X ONCE 04/05/18 15:30 04/05/18 15:31 DC 04/05/18 15:30 3 ML Fentanyl Citrate (Fentanyl 2ml Vial) 25 mcg PRN Q15MIN PRN 04/05/18 15:15 04/06/18 15:14 04/05/18 20:11 25 MCG Info (CONTRAST GIVEN -- Rx MONITORING) 1 each PRN DAILY PRN 04/05/18 16:30 04/07/18 16:29 Iohexol (Omnipaque 300 Mg/ml) 75 ml 1X ONCE 04/05/18 16:30 04/05/18 16:31 DC Methylprednisolone Sodium Succinate (SOLU-Medrol 125MG VIAL) 125 mg 1X ONCE 04/05/18 15:30 04/05/18 15:31 DC 04/05/18 16:34 125 MG Potassium Chloride (Klor-Con) 40 meq 1X ONCE 04/05/18 17:30 04/05/18 17:31 DC 04/05/18 17:49 40 MEQ Allergies Allergies Allergies Coded Allergies Type Severity Reaction Last Updated Verified No Known Drug Allergies 12/11/17 No Physical Exam Physical Exam Constitutional: Well developed, well nourished, no acute distress, non-toxic appearance. Speaking in full sentences. [] HENT: Normocephalic, atraumatic, bilateral external ears normal, oropharynx moist, no oral exudates, nose normal. [] Eyes: PERRLA, EOMI, conjunctiva normal, no discharge. [] Neck: Normal range of motion, no tenderness, supple, no stridor. [] Cardiovascular:Heart rate regular rhythm, no murmur [] Lungs & Thorax: Bilateral breath sounds clear to auscultation [] Abdomen: Bowel sounds normal, soft, no tenderness, no masses, no pulsatile masses. [] Skin: Warm, dry, no erythema, no rash. [] Back: No tenderness, no CVA tenderness. [] Extremities: No tenderness, no cyanosis, no clubbing, ROM intact, no edema. [] Neurologic: Alert and oriented X 3, normal motor function, normal sensory function, no focal deficits noted. [] Psychologic: Affect normal, judgement normal, mood anxious, requesting to be admitted. [] Current Patient Data Vital Signs Vital Signs Date Time Temp Pulse Resp B/P (MAP) Pulse Ox O2 Delivery O2 Flow Rate FiO2 04/05/18 20:13 95 24 134/79 (97) 99 04/05/18 20:11 Room Air 04/05/18 15:32 97.7 97.7 Lab Values Laboratory Tests Test 04/05/18 15:36 04/05/18 16:20 O2 Saturation 95 % (92-99) Arterial Blood pH 7.50 (7.35-7.45) H Arterial Blood pCO2 at Patient Temp 25 mmHg (35-46) L Arterial Blood pO2 at Patient Temp 72 mmHg (65-108) Arterial Blood HCO3 19 mmol/L (21-28) L Arterial Blood Base Excess -2 mmol/L (-3-3) FiO2 21 White Blood Count 8.9 x10^3/uL (4.0-11.0) Red Blood Count 4.54 x10^6/uL (3.50-5.40) Hemoglobin 13.7 g/dL (12.0-15.5) Hematocrit 41.2 % (36.0-47.0) Mean Corpuscular Volume 91 fL (79-100) Mean Corpuscular Hemoglobin 30 pg (25-35) Mean Corpuscular Hemoglobin Concent 33 g/dL (31-37) Red Cell Distribution Width 16.0 % (11.5-14.5) H Platelet Count 138 x10^3/uL (140-400) L Neutrophils (%) (Auto) 55 % (31-73) Lymphocytes (%) (Auto) 26 % (24-48) Monocytes (%) (Auto) 10 % (0-9) H Eosinophils (%) (Auto) 9 % (0-3) H Basophils (%) (Auto) 1 % (0-3) Neutrophils # (Auto) 4.9 x10^3uL (1.8-7.7) Lymphocytes # (Auto) 2.3 x10^3/uL (1.0-4.8) Monocytes # (Auto) 0.9 x10^3/uL (0.0-1.1) Eosinophils # (Auto) 0.8 x10^3/uL (0.0-0.7) H Basophils # (Auto) 0.1 x10^3/uL (0.0-0.2) Prothrombin Time 21.9 SEC (11.7-14.0) H Prothrombin Time INR 2.0 (0.8-1.1) H D-Dimer (Edita) 3.00 ug/mlFEU (0.00-0.50) H Sodium Level 144 mmol/L (136-145) Potassium Level 2.6 mmol/L (3.5-5.1) *L Chloride Level 109 mmol/L (98-107) H Carbon Dioxide Level 25 mmol/L (21-32) Anion Gap 10 (6-14) Blood Urea Nitrogen 9 mg/dL (7-20) Creatinine 0.7 mg/dL (0.6-1.0) Estimated GFR (Cockcroft-Gault) 84.5 BUN/Creatinine Ratio 13 (6-20) Glucose Level 93 mg/dL (70-99) Calcium Level 8.2 mg/dL (8.5-10.1) L Magnesium Level 1.7 mg/dL (1.8-2.4) L Total Bilirubin 1.7 mg/dL (0.2-1.0) H Aspartate Amino Transferase (AST) 33 U/L (15-37) Alanine Aminotransferase (ALT) 23 U/L (14-59) Alkaline Phosphatase 213 U/L (46-116) H Creatine Kinase 45 U/L (26-192) Troponin I Quantitative 0.018 ng/mL (0.000-0.055) DK-Ygj-N-Type Natriuretic Peptide 1021 pg/mL (0-124) H Total Protein 5.9 g/dL (6.4-8.2) L Albumin 2.1 g/dL (3.4-5.0) L Albumin/Globulin Ratio 0.6 (1.0-1.7) L Laboratory Tests 04/05/18 16:20 Laboratory Tests 04/05/18 16:20 EKG EKG EKG showed a normal sinus rhythm with a heart rate of 84, normal axis at 34. No ST elevations[] Radiology/Procedures Radiology/Procedures VQ scan was negative for acute process. Portable chest x-ray had what appeared to be an elevated right hemidiaphragm when compared with chest x-ray last month. There was no pneumonia noted pneumothorax.[] Course & Med Decision Making Course & Med Decision Making Pertinent Labs and Imaging studies reviewed. (See chart for details) [Medical decision making: There is no evidence of an acute coronary syndrome, no evidence of pneumonia, pneumothorax, nor pulmonary embolism with a low probability VQ scan. No evidence of mass effect given her reported history of cancer. No evidence of deep vein thrombus. Believe the patient does need long- term pain management however this does not seem to be an acute issue. We will treat with a lower dose pain medicine given that her surgery was several months ago by her report. There is no evidence of an infection at this site given the normal overlying tissues. Believe that there is a mental health component/ anxiety component to what is going on however there is no suicidal or homicidal ideation at this time. Believe the patient to be medically stable for home care and follow-up by her primary care team.] ED course: Patient arrived was placed in bed. Patient tolerates exam well. Patient was a difficult one to obtain peripheral IV access and so initial plan for CT angiogram to rule out PE was changed to a VQ scan which prolonged her emergency department stay. Patient was noted to be hypokalemic as well as mildly hypomagnesemic. Patient was given oral supplementation of potassium as well as prescription for additional outpatient supplementation. Patient was discharged in improved condition. Dragon Disclaimer Dragon Disclaimer This electronic medical record was generated, in whole or in part, using a voice recognition dictation system. Departure Departure Impression: Primary Impression: Dyspnea Additional Impressions: Hip pain Hypokalemia Hypomagnesemia Disposition: 01 HOME, SELF-CARE Condition: GOOD Referrals: LUCA HOPKINS MD (PCP) Follow-up in 2 days Patient Instructions: Chronic Pain Management, Hypokalemia, Hypomagnesemia, Shortness of Breath, [id number] Additional Instructions: Follow-up with your regular doctor in 2 days. Drink plenty of fluid. Take your medication as prescribed. Return to the emergency department if worsening difficulty breathing or any other concerns. Scripts Meloxicam (MELOXICAM) 7.5 Mg Tablet 1 TAB PO DAILY, #30 TAB Prov: RIAN LAI DO 04/05/18 Hydrocodone/Apap 5-325 (NORCO 5-325 TABLET) 1 Each Tablet 1 EACH PO PRN Q6HRS PRN for SEVERE PAIN, #15 as needed for pain Prov: RIAN LAI DO 04/05/18 Ipratropium Elsie (ATROVENT HFA) 12.9 Gm Hfa.aer.ad 2 PUFF IH QID, #12.9 GM 0 Refills Prov: JOELLERIAN SILVER 04/05/18 Magnesium Oxide (MAGNESIUM) 400 Mg Capsule 1 CAP PO BID, #30 CAP 0 Refills Prov: JOELLERIAN SILVER 04/05/18 Potassium Chloride (POTASSIUM CHLORIDE) 20 Meq Tablet.er 20 MEQ PO DAILY for 14 Days, #14 TAB.SR Prov: JOELLERIAN SILVER 04/05/18 Problem Qualifiers Primary Impression: Dyspnea Dyspnea type: unspecified Qualified Codes: R06.00 - Dyspnea, unspecified Additional Impressions: Hip pain Laterality: left Qualified Codes: M25.552 - Pain in left hip RIAN LAI DO Apr 05, 2018 15:23
[2018-04-05] MEDS ORDERED: IPRATRPIUM/ALBUTEROL 0.5/2.5MG 3 ML NEBU. NEB ONE (15:30)
[2018-04-05] MEDS ORDERED: methylPREDNISolone SOD SUCC PF 125 MG/2 ML VIAL. IV ONE (15:30)
--- NOTE | 2018-04-05 15:51 | EKG ---
[facility] [address] [place] [address] Test Date: 2018-04-05 Test Time: 15:13:46 Pat Name: BRANDON PORTER Department: Room: Gender: F Health Type Technician: : 1955 Requested By: RIAN LAI Order Number: [id number] Reading MD: Leodan Marcelino MD Measurements Intervals [place] Rate: 84 P: 26 ND: 132 QRS: 34 QRSD: 80 T: 64 QT: 378 QTc: 450 Interpretive Statements SINUS RHYTHM Electronically Signed On 04-06-2018 13:48:31 CDT by Loedan Marcelino MD
[2018-04-05 16:00] LABS: BASE EXCESS ABG -2 mmol/L (-3-3); HCO3 ABG 19 mmol/L (21-28); PCO2 ABG 25 mmHg (35-46); PO2 ABG 72 mmHg (65-108); SAT O2 ABG 95 % (92-99)
[2018-04-05 16:01] LABS: FIO2 ABG 21
[2018-04-05] MEDS ORDERED: CONTRAST GIVEN. MC PRN (16:30)
[2018-04-05] MEDS ORDERED: IOHEXOL 300 MG/ML 100ML VIAL. IV ONE (16:30)
[2018-04-05] MEDS: fentaNYL PF VIAL 100 MCG/2 ML VIAL IV PRN ×5 (16:36→20:11)
[2018-04-05 16:43] LABS: BASO # 0.1 x10^3/uL (0.0-0.2); BASO % 1 % (0-3); EOS # 0.8 x10^3/uL (0.0-0.7); EOS % 9 % (0-3); HEMATOCRIT 41.2 % (36.0-47.0); HEMOGLOBIN 13.7 g/dL (12.0-15.5); LYMPH # 2.3 x10^3/uL (1.0-4.8); LYMPH % 26 % (24-48); MEAN CORPUSCULAR HEMOGLOBIN 30 pg (25-35); MEAN CORPUSCULAR HGB CONC 33 g/dL (31-37); MEAN CORPUSCULAR VOLUME 91 fL (79-100); MONO # 0.9 x10^3/uL (0.0-1.1); MONO % 10 % (0-9); NEUT # 4.9 x10^3uL (1.8-7.7); NEUT % 55 % (31-73); PLATELET COUNT 138 x10^3/uL (140-400); RED BLOOD COUNT 4.54 x10^6/uL (3.50-5.40); WHITE BLOOD COUNT 8.9 x10^3/uL (4.0-11.0)
[2018-04-05 16:45] LABS: PROTHROMBIN TIME PATIENT 21.9 SEC (11.7-14.0)
[2018-04-05 16:52] LABS: ALBUMIN 2.1 g/dL (3.4-5.0); ALBUMIN/GLOBULIN RATIO 0.6 (1.0-1.7); CALCIUM 8.2 mg/dL (8.5-10.1); CREATININE 0.7 mg/dL (0.6-1.0); GFR 84.5; TOTAL BILIRUBIN 1.7 mg/dL (0.2-1.0); TOTAL PROTEIN 5.9 g/dL (6.4-8.2)
[2018-04-05 16:56] LABS: POTASSIUM 2.6 mmol/L (3.5-5.1)
--- NOTE | 2018-04-05 17:22 | RAD ---
Left lower extremity venous doppler ultrasound History: Left hip pain Comparison: None Findings: Multiple grayscale, color, and duplex spectral analysis sonographic images were acquired of the left lower extremity veins to evaluate for the presence of DVT. There is normal phasicity. Normal compression, color-flow, and augmentation is demonstrated from the left common femoral to the popliteal veins. There is normal color flow of the proximal greater saphenous and profunda femoris veins. There is normal color flow of segments of the calf veins. Impression: 1. There is no evidence of deep venous thrombosis from the left common femoral to popliteal veins. Electronically signed by: Carter Garcia MD (04/05/2018 5:18 PM) [id number]
[2018-04-05] MEDS ORDERED: POTASSIUM CHLORIDE 20 MEQ TABLET.ER. PO ONE (17:30)
--- NOTE | 2018-04-05 17:44 | RAD ---
Exam: AP portable chest History: Shortness of breath. Lung cancer. Comparison: February 28, 2018. Findings: There is evidence of interval right lung volume loss, could be do to atelectasis of the right middle lobe versus right lower lobe. Left lung appears clear. Cardiac silhouette appears within normal limits for size. No failure is evident. No pneumothorax is appreciated. Right shoulder degeneration is seen. There may be left external jugular intravenous catheter. Impression: 1. Volume loss involving the right lung, could represent atelectasis of the right lower lung field. Electronically signed by: Toney Lynn MD (04/05/2018 5:40 PM) [facility]
--- NOTE | 2018-04-05 19:51 | RAD ---
Nuclear medicine ventilation/perfusion scan. History: Shortness of air. Recent surgery. Left lung cancer. Comparison: Chest radiograph April 05, 2018. Technique: Ventilation portion was performed after inhalation of 34 mCi Xenon-133. Perfusion portion was performed after intravenous administration of 5.5 mCi Tc 99m MAA. Findings: Ventilation study is normal. Perfusion study demonstrates mild heterogeneity. Examination is considered low probability. Impression: Low probability VQ scan. Electronically signed by: Toney Lynn MD (04/05/2018 7:47 PM) [facility]
[2018-04-05 20:13] VITALS: BP 134/79
[2018-04-05] MEDS ORDERED: MAGN400C PO (20:42)
[2018-04-05] MEDS ORDERED: POTA20TA82 PO (20:42)
[2018-04-05] MEDS ORDERED: HYDR-971 PO (20:42)
[2018-04-05] MEDS ORDERED: MELO7.5T29 PO (20:42)
[2018-04-05] MEDS ORDERED: ATROVENT HFA12.9 GM IH (20:42)
== END 2018-04-05 22:00 | disposition home or self-care (01) ==
LOC: ER 14:55
DX: M25.552 Pain in left hip (principal); R06.02 Shortness of breath; E87.6 Hypokalemia; E83.42 Hypomagnesemia; Z87.891 Personal history of nicotine dependence; Z90.89 Acquired absence of other organs; Z90.722 Acquired absence of ovaries, bilateral; G89.29 Other chronic pain
CPT/HCPCS: 36415; 36600; 71045; 78582; 80053; 82550; 82805; 83735; 83880; 84484; 85025; 85379; 85610; 93005; 93971; 94640; 96374; 96375; 96376; 99285; A9540; A9558; J2930; J3010; J7620